=== PATIENT | female | born 1970 | race Caucasian/White ===

== ENCOUNTER 2020-03-17 10:26 | Outpatient (REF) | payer OTHER, SELFPAY ==
--- NOTE | 2020-03-17 15:00 | PFT_ITS ---
INDICATION: Shortness of breath. SPIROMETRY: The FEV1 to FVC 68% with an FEV1 of 2.02 L, which is 79% predicted and FVC of 2.97 L, which is 92% predicted. Post bronchodilator, the patient has significant response to both the FVC and the FEV1. The patient also has significant small airways disease. Maximum voluntary ventilation is 76% predicted. LUNG VOLUMES: Total lung capacity 104% predicted with a residual of 138% predicted. DIFFUSION CAPACITY: DLCO 90% predicted. COMPARISON: None. INTERPRETATION: There is an obstructive ventilatory defect consistent with mild to moderate COPD. The patient also had significant small airways disease and significant response to bronchodilators. This brings up the possibility of asthma, COPD overlap syndrome. The patient also has a mild to moderate decrease in maximum voluntary ventilation suggesting the possibility of deconditioning and also worsening dynamic inspiratory capacity. Lung volumes do demonstrate significant air trapping due to the COPD. In addition to that, the patient has a normal diffusing capacity. Clinical correlation warranted. MD JUAN Fischer/MODL / [id number]
== END 2020-03-17 10:27 | disposition home or self-care (01) ==
LOC: HO.RESP 10:26
PROVIDERS: PCP Internal Medicine; Visit Provider Internal Medicine
DX: R06.02 Shortness of breath (principal)
CPT/HCPCS: 94060; 94727; 94729

== ENCOUNTER → 2020-04-01 14:01 | Outpatient (BNVA) | payer OTHER, SELFPAY | PROVIDERS: PCP Internal Medicine; Visit Provider Internal Medicine Pulmonary Disease | DX: J45.909 Unspecified asthma, uncomplicated (principal) | CPT/HCPCS: 99202 ==

== ENCOUNTER 2020-04-19 04:10 | Emergency (ER) | payer OTHER, SELFPAY ==
[2020-04-19 04:43] VITALS: BP 151/81; PULSE 86; RESP 20; O2SAT 100; BMI 27.3
--- NOTE | 2020-04-19 04:53 | ED.NAVMDI ---
HPI - Nausea/Vomiting/Diarrhea General Chief complaint: Nausea/Vomiting/Diarrhea Stated complaint: DIARRHEA/VOMITING Time Seen by Provider: 04/19/20 04:34 Source: patient Mode of arrival: ambulatory History of Present Illness HPI Narrative: This is a 49-year-old female who presents with multiple episodes of nausea, nonbloody/nonbilious vomiting as well as multiple episodes watery diarrhea, nonbloody in nature, since eating at a food establishment earlier in the day. She states that she did not share the male with any friends or family and feels that this may be ?food poisoning?. She denies any recent fevers, chills, abdominal pain, but has a positive surgical history for to hernia repairs, and denies shortness of breath, chest pain, urinary pain/burning/frequency. Patient denies any recent antibiotic prescriptions. Related Data Home Medications Medication Instructions Recorded Confirmed gabapentin 600 mg tablet mg PO 11/26/19 03/31/20 levothyroxine 75 mcg tablet 75 mcg PO DAILY 11/26/19 03/31/20 loratadine 10 mg tablet 10 mg PO DAILY 11/26/19 03/31/20 Previous Rx's Medication Instructions Recorded albuterol sulfate 90 mcg/actuation 2 puff INHALATION Q6H PRN 30 Days 03/31/20 aerosol inhaler #8.5 g dextroamphetamine-amphetamine 10 10 mg PO BID 30 Days #60 tab 03/31/20 mg tablet tramadol 50 mg tablet 50 mg PO TID PRN 30 Days #90 tab 03/31/20 zolpidem 10 mg tablet 10 mg PO BEDTIME PRN 30 Days #30 03/31/20 tab fluticasone furoate 200 1 inh INHALATION DAILY 30 Days #1 04/01/20 mcg-vilanterol 25 mcg/dose ea inhalation powder Ventolin HFA 90 mcg/actuation 2 puff INHALATION Q4-6H PRN 30 04/02/20 aerosol inhaler Days #18 g NS dextroamphetamine-amphetamine 10 10 mg PO DAILY 30 Days #30 tab 04/03/20 mg tablet ondansetron HCl [Zofran] 4 mg PO Q6H PRN #7 tab 04/19/20 Allergies Allergy/AdvReac Type Severity Reaction Status Date / Time amitriptyline Allergy Mild face Verified 04/19/20 04:42 swelling aspirin [ASA] Allergy Unknown FACIAL Verified 04/19/20 04:42 SWELLING, swelling baclofen [BACLOFEN] Allergy Unknown UNKNOWN, Verified 04/19/20 04:42 vomiting Review of Systems Review of Systems: Pertinent positives and negatives as stated in HPI 10 point review of systems is otherwise negative. [facility] Past Medical History Source: nursing notes reviewed Medical History Leo-Danlos syndrome GERD (gastroesophageal reflux disease) Hypothyroidism Hypovitaminosis D Mild persistent asthma Shortness of breath Syncope and collapse Thyroid nodule Surgical History History of cystocele History of repair of rectocele History of umbilical hernia repair Family History Family History Father CVD (cardiovascular disease) Mother Hypertension Maternal Grandfather CVD (cardiovascular disease) Chronic mental illness Maternal Aunt Thyroid cancer Social History Social History Alcohol intake: never Smoking Status: Never smoker Advance Directives: No Advance Directives Information Provided: No Physical Exam Vital Signs: Vital Signs: Last Vital Signs Temp 98.3 F 04/19/20 06:53 Pulse 74 04/19/20 06:53 Resp 16 04/19/20 06:53 BP 144/76 H 04/19/20 06:53 Pulse Ox 100 04/19/20 06:53 Body Mass Index 27.3 VITAL SIGNS: Reviewed. GENERAL: Well developed, well nourished, in no acute distress. OROPHARYNX: no oral lesions noted, posterior pharynx clear NECK: Supple, no adenopathy LUNGS: Normal breath sounds. No adventitious sounds or accessory muscle use. SpO2<100> CARDIOVASCULAR: Regular rate and rhythm without noted murmurs ABDOMEN: Soft, non-tender, non-distended with bowel sounds. SKIN: Inspection of the skin reveals no rashes NEUROLOGIC: Alert and oriented x 4. Course Course Course Narrative: This is a 49-year-old female with history and clinical presentation suggestive of food poisoning but will rule out other infectious etiologies. Review of all investigations is negative for any acute findings and after receiving Zofran, Reglan, Benadryl patient's vomiting is now under control and she is feeling mildly better after receiving 1 L IV fluid resuscitation. MDM - Nausea/Vomiting/Diarrhea Lab Data Result diagrams: 04/19/20 05:05 04/19/20 06:04 Labs: Lab Results 04/19/20 04/19/20 04/19/20 Range/Units 05:05 05:05 06:04 WBC 7.6 (4.8-10.8) X10*3/uL RBC 4.41 (4.20-5.50) X10*6/uL Hgb 13.1 (12.0-16.0) g/dl Hct 39.7 (37-47) % MCV 90.0 (80-98) fL MCH 29.7 (27.0-33.0) pg MCHC 33.0 (31.0-35.0) g/dl RDW 12.2 (11.0-16.0) % Plt Count 266 (160-400) X10*3/uL MPV 10.3 (9.4-12.3) fL Immature Gran % (Auto) 0.3 (0.0-0.4) % Neut % (Auto) 70.2 (45-73) % Lymph % (Auto) 21.2 (20-40) % [place] % (Auto) 4.7 (2-11) % Eos % (Auto) 2.7 (0-4) % Baso % (Auto) 0.9 (0-2) % Lymph # (Auto) 1.6 (1.2-4.9) X10*3/uL [place] # (Auto) 0.4 (0.1-1.2) X10*3/uL Eos # (Auto) 0.2 (0.0-0.4) X10*3/uL Baso # (Auto) 0.1 (0.0-0.2) X10*3/uL Abs Immat Gran (auto) 0.02 (0.00-0.03) X10*3/uL Absolute Neuts (auto) 5.4 (2.0-8.3) X10*3/uL Absolute Nucleated RBC 0.000 (0.0-0.012) X10*3/uL Nucleated RBC % (auto) 0.0 (0.0-0.2) /100WBC Sodium 139 (135-145) mmol/L Potassium 4.0 (3.3-5.1) mmol/L Chloride 109 H (96-108) mmol/L Carbon Dioxide 18 L (22-29) mmol/L Anion Gap 16 (12-20) BUN 10 (9-16) mg/dL Creatinine 0.83 (0.5-1.4) mg/dL Estim Creat Clear Calc 72.4 Estimated GFR > 60 Random Glucose 98 (60-115) mg/dL Calcium 8.4 (8.4-10.2) mg/dL Total Bilirubin 0.7 (0.0-1.0) mg/dL AST 19 (5-31) U/L ALT 10 (0-31) U/L Alkaline Phosphatase 82 (39-117) U/L Total Protein 7.2 (6.5-8.0) g/dL Albumin 4.2 (3.5-5.0) g/dL Lipase Cancelled 12 TSH 4.09 H (0.32-4.0) uIU/mL Discharge Plan Discharge Clinical Impression: Gastroenteritis Patient Disposition: Home, Self-Care Instructions: Gastroenteritis (ED), Food Poisoning (ED) Additional Instructions: 1. Increase water intake. You have been provided with medication to control your nausea and you should use these opportunities to stay well hydrated. 2. Resume all home medications as prescribed. Do not hesitate to return to the emergency department she do experience any acute worsening or new symptoms. Prescriptions: New ondansetron HCl [Zofran] 4 mg tablet 4 mg PO Q6H PRN (Reason: nausea and vomiting) Qty: 7 RF: 0 No Action albuterol sulfate [Ventolin HFA] 90 mcg/actuation HFA aerosol inhaler 2 puff inhalation Q4-6H PRN (Reason: shortness of breath or wheezing) 30 Days Qty: 18 RF: 6 dextroamphetamine-amphetamine 10 mg tablet 10 mg PO DAILY 30 Days Qty: 30 RF: 0 gabapentin 600 mg tablet PO RF: 0 loratadine 10 mg tablet 10 mg PO DAILY RF: 0 levothyroxine 75 mcg tablet 75 mcg PO DAILY RF: 0 tramadol 50 mg tablet 50 mg PO TID PRN (Reason: pain) 30 Days Qty: 90 RF: 0 dextroamphetamine-amphetamine [Adderall] 10 mg tablet 10 mg PO BID 30 Days Qty: 60 RF: 0 zolpidem 10 mg tablet 10 mg PO BEDTIME PRN (Reason: insomnia) 30 Days Qty: 30 RF: 0 albuterol sulfate [ProAir HFA] 90 mcg/actuation HFA aerosol inhaler 2 puff inhalation Q6H PRN (Reason: shortness of breath or wheezing) 30 Days Qty: 8.5 RF: 6 Breo Ellipta 200-25 mcg/dose blister with device 1 inh inhalation DAILY 30 Days Qty: 1 RF: 6 Referrals: Abby Hancock MD [Primary Care Provider] - 2 days (Re-evaluation)
[2020-04-19] MEDS: ondansetron HCL 4 MG/2 ML VIAL IVPUSH (05:07)
[2020-04-19] MEDS: 0.9 % Sodium Chloride 1,000 ML 999 ML IV (05:07)
[2020-04-19 05:17] LABS: MANUAL DIFF FLAG NO
[2020-04-19 05:20] LABS: Basophils Absolute Auto 0.1 X10*3/uL (0.0-0.2); Basophils Percent Auto 0.9 % (0-2); Eosinophils Absolute Auto 0.2 X10*3/uL (0.0-0.4); Eosinophils Percent Auto 2.7 % (0-4); Hematocrit 39.7 % (37-47); Hemoglobin 13.1 g/dl (12.0-16.0); Imm Gran Abs Auto 0.02 X10*3/uL (0.00-0.03); Imm Gran Pct Auto 0.3 % (0.0-0.4); Lymphocytes Absolute Auto 1.6 X10*3/uL (1.2-4.9); Lymphocytes Percent Auto 21.2 % (20-40); Mean Corpuscular Hemoglobin 29.7 pg (27.0-33.0); Mean Platelet Volume 10.3 fL (9.4-12.3); Monocytes Absolute Auto 0.4 X10*3/uL (0.1-1.2); Monocytes Percent Auto 4.7 % (2-11); Neutrophils Absolute Auto 5.4 X10*3/uL (2.0-8.3); Neutrophils Percent Auto 70.2 % (45-73); Platelet Count 266 X10*3/uL (160-400); Red Blood Count 4.41 X10*6/uL (4.20-5.50); Red Cell Distribution Width 12.2 % (11.0-16.0); White Blood Count 7.6 X10*3/uL (4.8-10.8)
[2020-04-19] MEDS: diphenhydrAMINE HCL 50 MG/ML VIAL 25 MG IVPUSH (05:48)
[2020-04-19] MEDS: Metoclopramide HCl 10 MG/2 ML VIAL IVPUSH (05:49)
[2020-04-19 06:47] LABS: Alanine Aminotransferase 10 U/L (0-31); Albumin Level 4.2 g/dL (3.5-5.0); Alkaline Phosphatase 82 U/L (39-117); Anion Gap 16 (12-20); Aspartate Amino Transferase 19 U/L (5-31); Bilirubin Total 0.7 mg/dL (0.0-1.0); Blood Urea Nitrogen 10 mg/dL (9-16); Calcium 8.4 mg/dL (8.4-10.2); Carbon Dioxide 18 mmol/L (22-29); Chloride 109 mmol/L (96-108); Creatinine Clr Calc Pharmacy 72.4; Estimated Glomerular Filt Rate > 60; Glucose Random 98 mg/dL (60-115); Lipase 12 U/L (8-78); Sodium 139 mmol/L (135-145); Total Protein 7.2 g/dL (6.5-8.0)
[2020-04-19 06:53] VITALS: BP 144/76; PULSE 74; RESP 16; TEMP 36.8; O2SAT 100
--- NOTE | 2020-04-19 06:55 | PC.NURSE ---
Rn provided patient with gingerale and crackers per MD request for a PO challenge. Pt educated on the reason for PO challenge and RN set up cracker and ginerale on the stool next to the bed and encouraged the patient to try to eat/drink. Pt did not move from laying position. Report provided to jayme VALLE
--- NOTE | 2020-04-19 06:55 | PC.NURSE ---
report taken from Padma VALLE. patient resting on stretcher upon assessment. vitals updated. patient has gingerale and crackers for PO challenge. states she drank small amount of gingerale. no further vomiting per patient. waiting for re eval from MD>
[2020-04-19 07:03] LABS: Thyroid Stimulating Hormone 4.09 uIU/mL (0.32-4.0)
[2020-04-19] MEDS: Acetaminophen 325 MG TABLET 975 MG PO (07:29)
== END 2020-04-19 07:30 | disposition home or self-care (01) ==
PROVIDERS: Emergency Provider Student in an Organized Health Care Education/Training Program; PCP Internal Medicine
DX: K52.9 Noninfective gastroenteritis and colitis, unspecified (principal); R11.2 Nausea with vomiting, unspecified; Z79.899 Other long term (current) drug therapy
CPT/HCPCS: 36415; 80053; 83690; 84443; 85025; 96365; 96375; 99284; J1200; J2405; J2765

== ENCOUNTER 2020-05-02 11:22 | Outpatient (REF) | payer OTHER, SELFPAY ==
--- NOTE | ~2020-05-02 | XR_ITS ---
EXAMINATION: XR CHEST CLINICAL INFORMATION: Shortness of breath COMPARISON: Chest x-ray 08/21/2018. TECHNIQUE: 2 views of the chest were obtained. FINDINGS: No significant abnormality is noted involving the heart, lungs, mediastinum, bony thorax or soft tissues. XR/XR chest 2V IMPRESSION: Unremarkable chest examination
[2020-05-02 12:12] LABS: MANUAL DIFF FLAG NO
[2020-05-02 12:18] LABS: Basophils Absolute Auto 0.1 X10*3/uL (0.0-0.2); Basophils Percent Auto 1.1 % (0-2); Eosinophils Absolute Auto 0.4 X10*3/uL (0.0-0.4); Eosinophils Percent Auto 6.2 % (0-4); Hematocrit 39.6 % (37-47); Hemoglobin 12.9 g/dl (12.0-16.0); Imm Gran Abs Auto 0.02 X10*3/uL (0.00-0.03); Imm Gran Pct Auto 0.4 % (0.0-0.4); Lymphocytes Absolute Auto 2.2 X10*3/uL (1.2-4.9); Lymphocytes Percent Auto 38.6 % (20-40); Mean Corpuscular HGB Conc 32.6 g/dl (31.0-35.0); Mean Corpuscular Hemoglobin 30.3 pg (27.0-33.0); Mean Platelet Volume 10.4 fL (9.4-12.3); Monocytes Absolute Auto 0.4 X10*3/uL (0.1-1.2); Monocytes Percent Auto 6.5 % (2-11); Neutrophils Absolute Auto 2.7 X10*3/uL (2.0-8.3); Neutrophils Percent Auto 47.2 % (45-73); Platelet Count 231 X10*3/uL (160-400); Red Blood Count 4.26 X10*6/uL (4.20-5.50); Red Cell Distribution Width 12.6 % (11.0-16.0); White Blood Count 5.7 X10*3/uL (4.8-10.8)
[2020-05-02 12:41] LABS: Alanine Aminotransferase 11 U/L (0-31); Albumin Level 4.6 g/dL (3.5-5.0); Alkaline Phosphatase 88 U/L (39-117); Anion Gap 15 (12-20); Aspartate Amino Transferase 17 U/L (5-31); Bilirubin Total 0.2 mg/dL (0.0-1.0); Blood Urea Nitrogen 12 mg/dL (9-16); Calcium 9.5 mg/dL (8.4-10.2); Carbon Dioxide 24 mmol/L (22-29); Chloride 103 mmol/L (96-108); Estimated Glomerular Filt Rate > 60; Glucose Fasting 94 mg/dL (60-99); Potassium 4.4 mmol/L (3.3-5.1); Sodium 138 mmol/L (135-145); Total Protein 7.7 g/dL (6.5-8.0)
[2020-05-02 13:02] LABS: TSH reflex Free T4 4.76 uIU/mL (0.32-4.0)
[2020-05-02 14:06] LABS: Free T4 (Free Thyroxine) 0.81 ng/dL (0.71-1.85)
[2020-05-06 13:37] LABS: Vitamin D 25-OH, D2 8 ng/mL; Vitamin D 25-OH, D3 18 ng/mL; Vitamin D 25-OH, Total 26 ng/mL (30-100)
== END 2020-05-02 11:23 | disposition home or self-care (01) ==
LOC: HO.LAB 11:22
PROVIDERS: Absent Provider Internal Medicine; PCP Internal Medicine; Visit Provider Internal Medicine Pulmonary Disease
DX: J45.909 Unspecified asthma, uncomplicated (principal); E03.8 Other specified hypothyroidism; E06.3 Autoimmune thyroiditis; E55.9 Vitamin D deficiency, unspecified; R55 Syncope and collapse; R06.02 Shortness of breath; Z91.09 Other allergy status, other than to drugs and biological substances
CPT/HCPCS: 36415; 71046; 80053; 82306; 82785; 84439; 84443; 85025; 86003; 99212

== ENCOUNTER 2020-05-30 13:53 | Emergency (ER) | payer OTHER, SELFPAY ==
--- NOTE | ~2020-05-30 | XR_ITS ---
EXAMINATION: XR ANKLE, RIGHT XR FOOT, RIGHT CLINICAL INFORMATION: Injury and pain. COMPARISON: There are no prior studies available for comparison. TECHNIQUE: AP and oblique views of the right ankle were obtained. AP, lateral, and oblique views of the right foot was obtained. FINDINGS: Right ankle: There is an oblique spiral, minimally displaced fracture of the distal shaft of the right fibula. There is moderate associated overlying soft tissue swelling. There is equivocal mild widening of the medial compartment of the mortise of the ankle joint. Mild soft tissue swelling is also noted around the medial ankle joint. There are no radiodense foreign bodies. Right foot: The study partially redemonstrates the oblique fracture of the distal fibular shaft seen on the x-ray of the ankle. No other fractures are demonstrated. The joint spaces are maintained. There is a small spur off the medial aspect of the distal phalanx of the great toe. There is a small anterior joint effusion. There are no radiodense foreign bodies. XR/XR foot RT 2V IMPRESSION: 1. There is an oblique spiral minimally displaced fracture of the distal shaft of the right fibula. There is mild widening of the medial compartment of the mortise of the ankle joint. 2. There is an anterior joint effusion. There are no radiodense foreign bodies.
--- NOTE | ~2020-05-30 | XR_ITS ---
EXAMINATION: XR ANKLE, RIGHT XR FOOT, RIGHT CLINICAL INFORMATION: Injury and pain. COMPARISON: There are no prior studies available for comparison. TECHNIQUE: AP and oblique views of the right ankle were obtained. AP, lateral, and oblique views of the right foot was obtained. FINDINGS: Right ankle: There is an oblique spiral, minimally displaced fracture of the distal shaft of the right fibula. There is moderate associated overlying soft tissue swelling. There is equivocal mild widening of the medial compartment of the mortise of the ankle joint. Mild soft tissue swelling is also noted around the medial ankle joint. There are no radiodense foreign bodies. Right foot: The study partially redemonstrates the oblique fracture of the distal fibular shaft seen on the x-ray of the ankle. No other fractures are demonstrated. The joint spaces are maintained. There is a small spur off the medial aspect of the distal phalanx of the great toe. There is a small anterior joint effusion. There are no radiodense foreign bodies. XR/XR ankle RT 2V IMPRESSION: 1. There is an oblique spiral minimally displaced fracture of the distal shaft of the right fibula. There is mild widening of the medial compartment of the mortise of the ankle joint. 2. There is an anterior joint effusion. There are no radiodense foreign bodies.
[2020-05-30 14:51] VITALS: BP 149/94; PULSE 89; RESP 18; TEMP 36.6; O2SAT 98; BMI 31.1
--- NOTE | 2020-05-30 15:22 | ED.FALL ---
HPI - Fall General Chief Complaint: Fall Stated Complaint: fall - rt ft injury Time Seen by Provider: 05/30/20 15:10 Source: patient Mode of arrival: ambulatory Limitations: no limitations History of Present Illness HPI Narrative: 49-year-old female here with right ankle and foot pain status post fall. The patient tells me that she fell down several steps causing a twisting injury to her ankle. Unclear in inversion or eversion injury. She now has pain over the posterior ankle and over the heel. No head injury or loss of consciousness. MD complaint: fall Related Data Home Medications Medication Instructions Recorded Confirmed loratadine 10 mg tablet 10 mg PO DAILY 11/26/19 03/31/20 Previous Rx's Medication Instructions Recorded albuterol sulfate 90 mcg/actuation 2 puff INHALATION Q6H PRN 30 Days 03/31/20 aerosol inhaler #8.5 g tramadol 50 mg tablet 50 mg PO TID PRN 30 Days #90 tab 03/31/20 fluticasone furoate 200 1 inh INHALATION DAILY 30 Days #1 04/01/20 mcg-vilanterol 25 mcg/dose ea inhalation powder Ventolin HFA 90 mcg/actuation 2 puff INHALATION Q4-6H PRN 30 04/02/20 aerosol inhaler Days #18 g NS ondansetron HCl [Zofran] 4 mg PO Q6H PRN #7 tab 04/19/20 dextroamphetamine-amphetamine 10 10 mg PO BID 30 Days #60 tab 05/05/20 mg tablet levothyroxine 88 mcg tablet 88 mcg PO DAILY 90 Days #90 tab 05/05/20 zolpidem 10 mg tablet 10 mg PO BEDTIME PRN 30 Days #30 05/05/20 tab dextroamphetamine-amphetamine 10 10 mg PO DAILY 30 Days #30 tab 05/06/20 mg tablet gabapentin 600 mg tablet 600 mg PO .four times a day 30 05/06/20 Days #120 tab omalizumab 150 mg/mL subcutaneous 150 mg SUBCUT Q4W 28 Days #1 ml 05/14/20 syringe oxycodone 5 mg PO Q6H PRN #10 tab 05/30/20 Allergies Allergy/AdvReac Type Severity Reaction Status Date / Time amitriptyline Allergy Mild face Verified 05/02/20 11:23 swelling aspirin [ASA] Allergy Unknown FACIAL Verified 05/02/20 11:23 SWELLING, swelling baclofen [BACLOFEN] Allergy Unknown UNKNOWN, Verified 05/02/20 11:23 vomiting Review of Systems Review of Systems: Yes all other systems are reviewed and are negative Constitutional: Constitutional: Reports no additional constitutional complaints, Denies body ache(s), Denies chills, Denies fever(s), Denies headache(s) and Denies weakness Eyes: Eyes: Reports no additional eye complaints and Denies change in vision ENT: Reports system reviewed and no additional complaints, except as documented, Denies dizziness, Denies headache(s), Denies nasal congestion, Denies nasal discharge and Denies neck pain Cardiovascular: Cardiovascular: Reports no additional cardiovascular complaints, Denies chest pain, Denies leg edema and Denies dyspnea Respiratory: Respiratory: Reports no additional respiratory complaints, Denies cough and Denies dyspnea Gastrointestinal: Gastrointestinal: Reports no additional gastrointestinal complaints, Denies abdominal pain, Denies diarrhea, Denies nausea and Denies vomiting Genitourinary: Genitourinary: Reports no additional female genitourinary complaints and Denies urinary incontinence Musculoskeletal: Musculoskeletal: Reports no additional musculoskeletal complaints, Denies back pain, Reports arthralgias, Reports joint swelling, Denies neck pain, Denies numbness and Denies tingling Integumentary/Breasts: Skin/Breast: Reports system reviewed and no additional complaints, except as docu and Denies rash Neurologic: Reports system reviewed and no additional complaints, except as documented, Denies Abnormal speech present, Denies dizziness, Denies headache(s), Denies numbness, Denies tingling and Denies weakness [facility] Past Medical History Attestation statement: The following information was validated with the patient. Source: old records reviewed and nursing notes reviewed Medical History ADD (attention deficit disorder) Leo-Danlos syndrome GERD (gastroesophageal reflux disease) Hypothyroidism Hypovitaminosis D Mild persistent asthma Polyarthralgia Shortness of breath Syncope and collapse Thyroid nodule Surgical History History of cystocele History of repair of rectocele History of umbilical hernia repair Family History Family History Father CVD (cardiovascular disease) Mother Hypertension Maternal Grandfather CVD (cardiovascular disease) Chronic mental illness Maternal Aunt Thyroid cancer Social History Social History Alcohol intake: never Smoking Status: Never smoker Advance Directives: No Advance Directives Information Provided: No Physical Exam Vital Signs: Vital Signs: Last Vital Signs Temp 98 F 05/30/20 14:51 Pulse 89 05/30/20 14:51 Resp 18 05/30/20 14:51 BP 149/94 H 05/30/20 14:51 Pulse Ox 98 05/30/20 14:51 Body Mass Index 31.1 Const: General: cooperative, healthy appearing, comfortable and no acute distress Orientation/consciousness: patient oriented x3 Limitations: no limitations HENMT: Head: Yes normal to inspection Ears: hearing grossly normal bilaterally General nose exam: Normal external nose present Face and sinus: Yes normal facial exam Mouth: Normal oral and palatal mucosa present Throat: Yes posterior oropharynx normal Eyes: General: appearance normal, both eyes and all related structures Pupils: Equal, round and reactive pupils present Neck: Neck: Yes normal visual inspection Chest: Chest palpation & inspection: normal inspection of the chest Resp: Effort & Inspection: normal respiratory effort Auscultation: clear to auscultation bilaterally Cardio: Rate: regular rate Rhythm: regular rhythm Peripheral pulses: Peripheral pulses 2+ throughout GI: Inspection: Yes normal to inspection Palpation (GI): Soft to palpation and nontender Auscultation: normal bowel sounds Back/Spine/Pelvis: Thoracic/Lumbar Spine: thoracic and lumbar spine normal to inspection Skin: General skin exam: no rashes or lesions noted Neuro: General: patient oriented x3, no focal motor deficits and normal sensation to monofilament Cranial nerves: Yes Equal, round and reactive pupils present Cognition (Neuro): normal cognition Speech: No Abnormal speech present Gait exam (Neuro): Normal gait present Motor exam (neuro): 5/5 motor strength present throughout Extrem: Other: Tenderness over the posterior right ankle. Negative Thorpe's test. No calf pain or swelling. Tenderness over the heel and over the base of the 5th meta tarsal. No obvious swelling, ecchymosis or deformity General: Yes normal to inspection Course Course Course Narrative: Right ankle and foot pain status post injury today. Will need x-rays 1700-X-ray shows 1. There is an oblique spiral minimally displaced fracture of the distal shaft of the right fibula. There is mild widening of the medial compartment of the mortise of the ankle joint. 2. There is an anterior joint effusion. There are no radiodense foreign bodies. Patient placed in a posterior and stirrup splint. She has crutches from home. Recommended follow-up with Orthopedics. Reviewed worrisome signs and symptoms and when to return to the emergency department. Comfortable discharge home. Procedures Orthopedic Splinting/Casting Injury #1: Side: right Lower Extremity Injury Location: lower leg Lower Extremity Immobilizer: posterior splint and stirrup splint Other Orthopedic Equipment: crutches MDM - Fall Differential Diagnosis Differential diagnosis: Likely dislocation and fracture Medical Records Attestation: I reviewed the patient's medical records. Lab Data Attestation: I reviewed the patient's lab results. Imaging Data ankle/foot right x-ray: Attestation: I personally reviewed and interpreted this imaging study as follows: Radiologist's impression: 1. There is an oblique spiral minimally displaced fracture of the distal shaft of the right fibula. There is mild widening of the medial compartment of the mortise of the ankle joint. 2. There is an anterior joint effusion. There are no radiodense foreign bodies. Discharge Plan Discharge Clinical Impression: Closed fibular fracture Qualifiers: Encounter type: initial encounter Fibula location: distal Fracture morphology: other fracture Laterality: right Qualified Code(s): S82.831A - Other fracture of upper and lower end of right fibula, initial encounter for closed fracture Patient Disposition: Home, Self-Care Instructions: Leg Fracture (ED) Additional Instructions: Ice, elevation, no weight-bearing Follow-up with orthopedics Splint stays on at all times. Do not get it wet Prescriptions: New oxycodone 5 mg tablet 5 mg PO Q6H PRN (Reason: pain) Qty: 10 RF: 0 No Action albuterol sulfate [Ventolin HFA] 90 mcg/actuation HFA aerosol inhaler 2 puff inhalation Q4-6H PRN (Reason: shortness of breath or wheezing) 30 Days Qty: 18 RF: 6 levothyroxine [Levoxyl] 88 mcg tablet 88 mcg PO DAILY 90 Days Qty: 90 RF: 1 zolpidem 10 mg tablet 10 mg PO BEDTIME PRN (Reason: insomnia) 30 Days Qty: 30 RF: 0 dextroamphetamine-amphetamine [Adderall] 10 mg tablet 10 mg PO BID 30 Days Qty: 60 RF: 0 gabapentin 600 mg tablet 600 mg PO .four times a day 30 Days Qty: 120 RF: 6 dextroamphetamine-amphetamine 10 mg tablet 10 mg PO DAILY 30 Days Qty: 30 RF: 0 Xolair 150 mg/mL syringe 150 mg subcut Q4W 28 Days Qty: 1 RF: 12 ondansetron HCl [Zofran] 4 mg tablet 4 mg PO Q6H PRN (Reason: nausea and vomiting) Qty: 7 RF: 0 loratadine 10 mg tablet 10 mg PO DAILY RF: 0 tramadol 50 mg tablet 50 mg PO TID PRN (Reason: pain) 30 Days Qty: 90 RF: 0 albuterol sulfate [ProAir HFA] 90 mcg/actuation HFA aerosol inhaler 2 puff inhalation Q6H PRN (Reason: shortness of breath or wheezing) 30 Days Qty: 8.5 RF: 6 Breo Ellipta 200-25 mcg/dose blister with device 1 inh inhalation DAILY 30 Days Qty: 1 RF: 6 Referrals: Memo Cat MD [Physician] - 2 days Interventions: ED Discharge Assessment Last Done: 05/30/20 16:58 Discharge Date/Time: 05/30/20 16:59
[2020-05-30] MEDS: Acetaminophen 325 MG TABLET 650 MG PO (16:45)
== END 2020-05-30 16:59 | disposition home or self-care (01) ==
PROVIDERS: Emergency Provider Emergency Medicine; PCP Internal Medicine
DX: S82.831A Other fracture of upper and lower end of right fibula, initial encounter for closed fracture (principal); W10.8XXA Fall (on) (from) other stairs and steps, initial encounter; Y93.89 Activity, other specified; Y92.038 Other place in apartment as the place of occurrence of the external cause; Y99.9 Unspecified external cause status
CPT/HCPCS: 29515; 73600; 73620; 99283; 99284

== ENCOUNTER → 2020-06-04 10:17 | Outpatient (BNVA) | payer OTHER, SELFPAY | PROVIDERS: Visit Provider Physician Assistant | DX: S82.839A Other fracture of upper and lower end of unspecified fibula, initial encounter for closed fracture (principal) | CPT/HCPCS: 99212 ==

== ENCOUNTER 2020-06-12 06:01 | Day surgery (SDC) | payer OTHER, SELFPAY ==
--- NOTE | 2020-06-11 08:44 | HO.ANESPROP2 ---
Documented by User: Bettie Youngblood 06/11/20 08:47 HPI - Anesthesia Eval Consult details Narrative: 49yo F for Right Ankle Fracture ORIF PMFSH Active Problems Active Problems: All Active Problems (Updated 05/31/20 @ 00:01 by Manisha Sultana) Polyarthralgia (Acute) ADD (attention deficit disorder) (Acute) MINO (obstructive sleep apnea) (Acute) Environmental allergies (Acute) Asthma (Acute) Mild persistent asthma (Acute) Syncope and collapse (Acute) Shortness of breath (Acute) Thyroid nodule (Acute) Hypovitaminosis D (Acute) GERD (gastroesophageal reflux disease) (Acute) Leo-Danlos syndrome (Acute) Hypothyroidism (Acute) Past Medical History Medical History (Updated 06/12/20 @ 08:34 by Keyana Henriquez) ADD (attention deficit disorder) Asthma Leo-Danlos syndrome GERD (gastroesophageal reflux disease) Hypothyroidism Hypovitaminosis D Mild persistent asthma MINO (obstructive sleep apnea) Polyarthralgia Shortness of breath Syncope and collapse Thyroid nodule Family History Family History Father CVD (cardiovascular disease) Mother Hypertension Maternal Grandfather CVD (cardiovascular disease) Chronic mental illness Maternal Aunt Thyroid cancer Surgical History Surgical History History of cystocele History of repair of rectocele History of umbilical hernia repair Social History Social History Alcohol intake: never Smoking Status: Never smoker Second Hand Smoke Exposure: No Use of substances other than those prescribed or required for medical reasons: No Are you DNR?: No Advance Directives: No Advance Directives Information Provided: Yes Current occupational status: employed 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 Meds Allergies Allergy/AdvReac Type Severity Reaction Status Date / Time aspirin [ASA] Allergy Intermediate FACIAL Verified 06/10/20 14:58 SWELLING, swelling baclofen [BACLOFEN] Allergy Intermediate UNKNOWN, Verified 06/10/20 14:58 vomiting amitriptyline Allergy Mild face Verified 06/10/20 14:58 swelling Home Medications Medication Instructions Recorded Confirmed Last Taken Type loratadine 10 mg tablet 10 mg PO DAILY 11/26/19 06/10/20 Unknown History Exam Exam Date and Time: June 11, 2020 0844 Pertinent Lab Results Pertinent Lab Results: Laboratory Tests 05/02/20 05/02/20 11:55 11:55 WBC 5.7 Hgb 12.9 Hct 39.6 Plt Count 231 Sodium 138 Potassium 4.4 Chloride 103 Carbon Dioxide 24 BUN 12 Creatinine 0.93 Narrative Narrative: PFT 03/2020 INTERPRETATION: There is an obstructive ventilatory defect consistent with mild to moderate COPD. The patient also had significant small airways disease and significant response to bronchodilators. This brings up the possibility of asthma, COPD overlap syndrome. The patient also has a mild to moderate decrease in maximum voluntary ventilation suggesting the possibility of deconditioning and also worsening dynamic inspiratory capacity. Lung volumes do demonstrate significant air trapping due to the COPD. In addition to that, the patient has a normal diffusing capacity. Clinical correlation warranted. Assessment and Plan Assessment Anesthesia Assessment: Chart Reviewed Documented by User: Keyana Henriquez 06/12/20 08:39 [facility] Past Medical History Medical History (Updated 06/12/20 @ 08:34 by Keyana Henriquez) ADD (attention deficit disorder) Asthma Leo-Danlos syndrome GERD (gastroesophageal reflux disease) Hypothyroidism Hypovitaminosis D Mild persistent asthma MINO (obstructive sleep apnea) Polyarthralgia Shortness of breath Syncope and collapse Thyroid nodule Family History Family History Father CVD (cardiovascular disease) Mother Hypertension Maternal Grandfather CVD (cardiovascular disease) Chronic mental illness Maternal Aunt Thyroid cancer Family history of problems with anesthesia: No Surgical History Surgical History History of cystocele History of repair of rectocele History of umbilical hernia repair History of Problems with Anesthesia: Yes (Slow to wake up with 1 surgery but has had 2 operations after with no issues) Social History Social History Alcohol intake: never Smoking Status: Never smoker Second Hand Smoke Exposure: No Use of substances other than those prescribed or required for medical reasons: No Are you DNR?: No Advance Directives: No Advance Directives Information Provided: Yes Current occupational status: employed 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 Meds Allergies Allergy/AdvReac Type Severity Reaction Status Date / Time aspirin [ASA] Allergy Intermediate FACIAL Verified 06/10/20 14:58 SWELLING, swelling baclofen [BACLOFEN] Allergy Intermediate UNKNOWN, Verified 06/10/20 14:58 vomiting amitriptyline Allergy Mild face Verified 06/10/20 14:58 swelling Home Medications Medication Instructions Recorded Confirmed Last Taken Type loratadine 10 mg tablet 10 mg PO DAILY 11/26/19 06/10/20 Unknown History Exam Height,Weight and Vital Signs: Vital Signs Temp Pulse Resp BP Pulse Ox 06/12/20 06:16 96.9 F 70 16 152/86 H 99 Airway Mallampati Class: II TM Dist: >3cm Neck ROM: Full Heart: RRR Lungs: CTAB Assessment and Plan Assessment Anesthesia Assessment: Anesthesia Plan Discussed and Chart Reviewed Final Anesthetic Review NPO: Yes ASA Class: III Final Preanesthetic Review: No Changes in Pt Med Stat, Meds/Allgs Chart Reviewed, Consent Obtained/Reviewed and Anes Risks/Benef Reviewed Patient Risk: Intermediate Procedure Risk: Low Assessment/Block/Sedation in SS: Assess/Block/Sedation-SS Anesthetic Plan Anesthetic Plan: GA, Regional Block (Popliteal nerve block) and Other (Attention to positioning) Disposition: Standard PACU
[2020-06-12] VITALS (7 sets, daily range): BP systolic 133–152; BP diastolic 75–86; PULSE 70–90; RESP 14–18; TEMP 36.1–36.3; O2SAT 97–99; BMI 25.6
--- NOTE | ~2020-06-12 | FL_ITS ---
EXAMINATION: XR FLUOROSCOPY WITH IMAGES CLINICAL INFORMATION: Right ankle ORIF COMPARISON: None. TECHNIQUE: Fluoroscopy performed by Is trabeculated. Fluoroscopy time: 0 minutes DAP: [id number] [id number] Images: 2 FINDINGS: Oblique distal fibular fracture has been stabilized with a lateral metallic plate and screws. There is a single anterior screw seen as well. The ankle mortise and subtalar joints are maintained normal. The lateral malleolar soft tissue swelling seen. FL/FL guidance in OR IMPRESSION: Stabilized oblique distal fracture with hardware as described above. The fracture fragments is in alignment. There is minimal lateral malleolar soft tissue swelling.
[2020-06-12] MEDS: Lactated Ringers 1,000 ML 100 ML IVCONT (06:30)
--- NOTE | 2020-06-12 07:22 | MHC.SHP ---
Pre-Procedural Eval Section A The patient is an INPATIENT: No Changes since office visit: No Cold of Flu in the past 2 weeks, No New Medical Problems, No Changes in Medication and No Patient answered all questions The History & Physical has been completed within 30 days and I have reviewed it.: Yes Section B Chief Complaint: Right Distal Radius Fx Allergies: Allergies Allergy/AdvReac Type Severity Reaction Status Date / Time aspirin [ASA] Allergy Intermediate FACIAL Verified 06/10/20 14:58 SWELLING, swelling baclofen [BACLOFEN] Allergy Intermediate UNKNOWN, Verified 06/10/20 14:58 vomiting amitriptyline Allergy Mild face Verified 06/10/20 14:58 swelling Plan I have reviewed the history and physical and performed a pertinent physical examination on my patient. No changes have occurred unless specified.
--- NOTE | 2020-06-12 08:55 | W.PM.OPN ---
Operative Note Operative Note Date of Service: 06/12/20 Narrative: OPERATIVE FIXATION ANKLE SURGEON: Memo Cat MD (Kelly) Senior Energy Market Coordinator: Vane Simms MD PREOP DIAGNOSIS: Bimalleolar fracture equivalent right ankle POSTOP DIAGNOSIS: Same OPERATIVE PROCEDURE: ORIF [right] Ankle CLINICAL NOTE: This lady fell and injured her ankle as noted above. Because of this after explaining the risks benefits and alternatives and answering all of the questions it was mutually agreed upon to carry the following procedure. OPERATIVE DETAILS Under a regional and general anesthetic the patient was placed supine on the operating table. Pneumatic tourniquet cuff was placed on the upper the right thigh. He was inflated to 300 mm of mercury at the beginning of the case. The right foot and ankle were then prepped draped in standard fashion Surgical time-out was then performed. The patient is identified. Procedure confirmed. Site confirmed. Medical and allergy history was reviewed. Preoperative antibiotics were given. Standard DVT prophylaxis in place. All other items discussed and agreed upon. Standard approach to the lateral malleolus was carried out. This was taken down through subcutaneous tissues with hemostasis achieved along the way electrocautery. Subperiosteal elevation was performed anteriorly and posteriorly. The fracture was identified. It was opened. It was irrigated curetted clear of clot and soft tissue. An anatomical reduction was then performed. An interfragmentary screw was then inserted under standard technique. This brought fracture together nicely.. After this a 6 hole anatomical plate was selected and brought up to the table. He was placed along the lateral malleolus. Distally single screw was drilled measured and the appropriate length locking screw inserted. Just proximal to the fracture of the holes drilled measured and a non locking screw was inserted bringing the plate nicely to the side. Following this most distal screws were drilled measured and locking screw was inserted. Screw holes near the fracture site were not used. Proximally the holes that remained were drilled measured nonlocking screws inserted. Fluoroscopy was in used. The hardware was in position. This screw lengths appropriate. Mortise was intact. Therefore we proceeded to closure. The wounds were irrigated. Deep subcutaneous tissue and superficial tissue were approximated interrupted 2-0 poly absorb. [place] were then used to close the. Sterile dressings were then applied. Tourniquet was let down total tourniquet time of 30 minutes. The foot was placed in a posterior splint. The patient's anesthesia was then reversed. They were transferred supine to the room bed then taken recovery condition. Intraoperatively there was approximately 10 cc of blood loss. No intraop transfusions or complications.
[2020-06-12] MEDS: oxyCODONE HCl Immed Release 5 MG TABLET PO (09:30)
[2020-06-12] MEDS: Acetaminophen 325 MG TABLET 650 MG PO (09:30)
== END 2020-06-12 10:31 | disposition home or self-care (01) ==
PROVIDERS: PCP Internal Medicine; Visit Provider Orthopaedic Surgery
PROC: (CPT 27792; principal; 2020-06-12 07:30)
DX: S82.61XA Displaced fracture of lateral malleolus of right fibula, initial encounter for closed fracture (principal); W10.9XXA Fall (on) (from) unspecified stairs and steps, initial encounter; Y93.9 Activity, unspecified; Y92.9 Unspecified place or not applicable; Y99.8 Other external cause status; J45.909 Unspecified asthma, uncomplicated; F98.8 Other specified behavioral and emotional disorders with onset usually occurring in childhood and adolescence; Q79.60 Ehlers-Danlos syndrome, unspecified; Z79.899 Other long term (current) drug therapy; Z88.8 Allergy status to other drugs, medicaments and biological substances
CPT/HCPCS: 27792; C1713; J0690; J1100; J2250; J2405; J3010

== ENCOUNTER 2020-06-24 08:10 | Outpatient (REF) | payer OTHER, SELFPAY ==
--- NOTE | ~2020-06-24 | XR_ITS ---
EXAMINATION: XR ANKLE, RIGHT CLINICAL INFORMATION: Follow-up fracture. COMPARISON: Right ankle under fluoroscopy 06/12/2020 TECHNIQUE: AP, lateral, and mortise views of the right ankle. FINDINGS: The right lateral malleolar oblique fracture has been stabilized with lateral plate and screws is a fracture fragment in satisfactory alignment. The ankle mortise and subtalar joints are normal. There are surgical kassandra along the lateral ankle. XR/XR ankle RT min 3V IMPRESSION: Stabilized oblique fibular fracture with lateral plate and screws. The fracture fragments are in alignment.
== END 2020-06-24 08:11 | disposition home or self-care (01) ==
LOC: HO.HOSX 08:10
PROVIDERS: Visit Provider Physician Assistant
DX: S82.831D Other fracture of upper and lower end of right fibula, subsequent encounter for closed fracture with routine healing (principal); S82.832D Other fracture of upper and lower end of left fibula, subsequent encounter for closed fracture with routine healing; Q79.60 Ehlers-Danlos syndrome, unspecified; K21.9 Gastro-esophageal reflux disease without esophagitis; E03.9 Hypothyroidism, unspecified; E55.9 Vitamin D deficiency, unspecified; J45.30 Mild persistent asthma, uncomplicated; Z98.890 Other specified postprocedural states
CPT/HCPCS: 73610; 99202; 99212

== ENCOUNTER 2020-07-19 07:54 | Emergency (ER) | payer OTHER, SELFPAY ==
--- NOTE | ~2020-07-19 | CT_ITS ---
EXAMINATION: CT ABDOMEN AND PELVIS WITHOUT CONTRAST CLINICAL INFORMATION: Epigastric pain. Nausea, and vomiting. COMPARISON: None TECHNIQUE: Multidetector volumetric imaging was performed from the superior aspect of the liver through the pubic symphysis. Sagittal and coronal reformatted images were obtained on the technologist's workstation. This CT examination was performed using dose optimization techniques as appropriate, variously including the following: *Automated exposure control *Adjustment of mA and/or kV according to patient size (this includes techniques or standardized protocols for targeted exams where dose is matched to indication/reason for exam; i.e. extremities or head) *Use of iterative reconstruction technique DLP: 563.0 mGy-cm FINDINGS: LUNG BASES: The visualized lung bases are unremarkable. LIVER, GALLBLADDER, AND BILIARY TREE: The liver is normal in size, shape, and attenuation. No focal hepatic lesion or biliary ductal dilatation is present. The gallbladder is unremarkable with no evidence of radiopaque gallstones, gallbladder wall thickening, or obvious pericholecystic inflammatory changes. PANCREAS: Unremarkable. SPLEEN: Unremarkable. ADRENAL GLANDS: Unremarkable. KIDNEYS AND URETERS: The kidneys are normal in size, shape, and attenuation. No hydronephrosis, hydroureter, or calculi seen. No perinephric stranding. BLADDER: Suboptimally distended, grossly appears unremarkable. GASTROINTESTINAL TRACT: The small and large bowel are unremarkable. The appendix is nonvisualized without any inflammatory changes around the cecum. Specific note is made of presence of intraluminal contrast within the large bowel likely from prior ingestion of oral contrast. Please correlate clinically. ABDOMINAL WALL: No significant hernia is appreciated. LYMPH NODES: Normal. VASCULAR: Unremarkable. PELVIC VISCERA: There is no pelvic mass present. There is no free fluid and/or free air present. OSSEOUS STRUCTURES: Mild diffuse osteopenia. Nonspecific asymmetric sclerosis is present involving the right iliac bone at the level of the SI joint, of indeterminate etiology. CT/CT abdomen pelvis wo con IMPRESSION: 1. No CT evidence of any acute intra-abdominal and/or intrapelvic pathology is present. 2. Mild diffuse osteopenia. 3. Asymmetric sclerosis involving the right iliac bone, of indeterminate etiology.
[2020-07-19 07:58] VITALS: BP 154/92; BP 155/93; PULSE 76; PULSE 84; RESP 18; TEMP 36.7; O2SAT 96; O2SAT 97; BMI 29.1
[2020-07-19] MEDS: ondansetron HCL 4 MG/2 ML VIAL IVPUSH (08:25)
--- NOTE | 2020-07-19 09:09 | ECG_ITS ---
Test Reason : ABDOMINAL PAIN Blood Pressure : / mmHG Vent. Rate : 064 BPM Atrial Rate : 064 BPM P-R Int : 130 ms QRS Dur : 084 ms QT Int : 426 ms P-R-T Axes : 058 048 047 degrees QTc Int : 439 ms Normal sinus rhythm Normal ECG When compared to the previous EKG of No significant changes seen Referred By: Florencia Negrete Electronically Signed By:CHERI HOLLIDAY MD
--- NOTE | 2020-07-19 09:12 | ED.ABDPAIN ---
HPI - Abdominal Pain General Chief Complaint: Abdominal Pain Stated Complaint: n/v/d Time Seen by Provider: 07/19/20 09:04 Source: patient and family (daughter) Mode of arrival: ambulatory Limitations: no limitations History of Present Illness HPI narrative: Patient is a 50-year-old female with a past medical history of Leo Danlos, , GERD, MINO, asthma, hypothyroidism, ADD, shortness of breath who presents with 10 hours of nausea vomiting diarrhea and chills. She states she has had more than 10 episodes of vomiting, she denies blood or coffee ground type vomitus. She states she has had at least 6 episodes of watery diarrhea, denies blood or black in her diarrhea. She denies eating anything that might have caused food poisoning, she states her last meal was pizza and everyone else in her household ate it with no issues. She denies fevers. She states she has been taking oxycodone randomly for her pain secondary to a foot surgery she had 4 weeks ago but has been taking it on and off and her last dose was 2 days ago. She denies any alcohol or drug use or being in withdrawal. She denies taking any recent antibiotics or travel. Related Data Home Medications Medication Instructions Recorded Confirmed loratadine 10 mg tablet 10 mg PO DAILY 11/26/19 06/10/20 Previous Rx's Medication Instructions Recorded albuterol sulfate 90 mcg/actuation 2 puff INHALATION Q6H PRN 30 Days 03/31/20 aerosol inhaler #8.5 g tramadol 50 mg tablet 50 mg PO TID PRN 30 Days #90 tab 03/31/20 fluticasone furoate 200 1 inh INHALATION DAILY 30 Days #1 04/01/20 mcg-vilanterol 25 mcg/dose ea inhalation powder Ventolin HFA 90 mcg/actuation 2 puff INHALATION Q4-6H PRN 30 04/02/20 aerosol inhaler Days #18 g NS ondansetron HCl [Zofran] 4 mg PO Q6H PRN #7 tab 04/19/20 dextroamphetamine-amphetamine 10 10 mg PO DAILY 30 Days #30 tab 05/06/20 mg tablet omalizumab 150 mg/mL subcutaneous 150 mg SUBCUT Q4W 28 Days #1 ml 05/14/20 syringe gabapentin 600 mg tablet 600 mg PO .four times a day 30 06/10/20 Days #120 tab levothyroxine 100 mcg tablet 100 mcg PO DAILY 90 Days #90 tab 06/10/20 omeprazole 20 mg capsule,delayed 20 mg PO DAILY 90 Days #90 cap 06/10/20 release oxycodone 5 mg tablet 5 mg PO Q6H PRN 28 Days #100 tab 06/10/20 oxycodone 10 mg PO Q4-6H PRN #40 tab 06/12/20 zolpidem 10 mg tablet 10 mg PO BEDTIME PRN 30 Days #30 07/14/20 tab ondansetron HCl [Zofran] 4 mg PO Q8H PRN #7 tab 07/19/20 Allergies Allergy/AdvReac Type Severity Reaction Status Date / Time aspirin [ASA] Allergy Intermediate FACIAL Verified 06/24/20 11:06 SWELLING, swelling baclofen [BACLOFEN] Allergy Intermediate UNKNOWN, Verified 06/24/20 11:06 vomiting amitriptyline Allergy Mild face Verified 06/24/20 11:06 swelling Review of Systems Review of Systems Yes all other systems are reviewed and are negative Physical Exam Vital Signs: Vital Signs: Last Vital Signs Temp 97.8 F 07/19/20 10:10 Pulse 80 07/19/20 10:10 Resp 16 07/19/20 10:10 BP 150/80 H 07/19/20 10:10 Pulse Ox 100 07/19/20 10:10 Body Mass Index 29.1 Const: General: cooperative, healthy appearing, comfortable, well developed and ill appearing (pt writhing in bed, holding vomit bag) Nutritional Appearance: average body habitus Orientation/consciousness: patient oriented x3 Limitations: no limitations HENMT: Head: Yes normal to inspection Eyes: General: appearance normal, both eyes and all related structures Neck: Neck: Yes normal visual inspection and Yes full ROM Resp: Effort & Inspection: normal respiratory effort and able to speak in complete sentences Auscultation: clear to auscultation bilaterally Cardio: Rate: regular rate Rhythm: regular rhythm Heart sounds: normal S1 and S2 GI: Inspection: Yes normal to inspection Palpation (GI): Soft to palpation and Tenderness to palpation present (GI) in the epigastrum; not at McBurney's point, Garcia's sign negative and with no rebound tenderness Skin: General skin exam: no rashes or lesions noted Neuro: General: patient oriented x3 Extrem: General: Yes normal to inspection Course Course Course Narrative: Patient is a 50-year-old female with a past medical history of Leo Danlos, , GERD, MINO, asthma, hypothyroidism, ADD, shortness of breath who presents with 10 hours of nausea vomiting diarrhea and chills. Vital signs are stable sans for a slightly elevated blood pressure at 155/93. Physical exam remarkable for epigastric pain, patient actively vomiting, writhing in the bed. Patient received Zofran, will give IV Reglan, get EKG, labs, stool testing and abd CT then reassess. Reevaluation(s) Reevaluation #1: EKG NSR, no acute changes, labs WNL, UA neg for infection but + for blood, waiting for CT scan to be done. Time: 10:44 Reevaluation #2: CT of abdomen and pelvis negative for acute pathology, patient unable to provide stool sample thus far. Will discharge home with Zofran prescription, rehydrated patient with IV fluids. Time: 12:11 MDM - Abdominal Pain Medical Records Attestation: I reviewed the patient's medical records. Lab Data Attestation: I reviewed the patient's lab results. Result diagrams: 07/19/20 09:33 07/19/20 09:33 Labs: Lab Results 07/19/20 07/19/20 07/19/20 Range/Units 09:33 09:33 09:33 WBC 8.1 (4.8-10.8) X10*3/uL RBC 4.33 (4.20-5.50) X10*6/uL Hgb 12.7 (12.0-16.0) g/dl Hct 37.7 (37-47) % MCV 87.1 (80-98) fL MCH 29.3 (27.0-33.0) pg MCHC 33.7 (31.0-35.0) g/dl RDW 11.6 (11.0-16.0) % Plt Count 267 (160-400) X10*3/uL MPV 10.0 (9.4-12.3) fL Immature Gran % (Auto) 0.2 (0.0-0.4) % Neut % (Auto) 85.1 H (45-73) % Lymph % (Auto) 11.3 L (20-40) % Henderson % (Auto) 3.0 (2-11) % Eos % (Auto) 0.0 (0-4) % Baso % (Auto) 0.4 (0-2) % Lymph # (Auto) 0.9 L (1.2-4.9) X10*3/uL Henderson # (Auto) 0.2 (0.1-1.2) X10*3/uL Eos # (Auto) 0.0 (0.0-0.4) X10*3/uL Baso # (Auto) 0.0 (0.0-0.2) X10*3/uL Abs Immat Gran (auto) 0.02 (0.00-0.03) X10*3/uL Absolute Neuts (auto) 6.9 (2.0-8.3) X10*3/uL Absolute Nucleated RBC 0.000 (0.0-0.012) X10*3/uL Nucleated RBC % (auto) 0.0 (0.0-0.2) /100WBC PT (10.8-13.0) SEC INR (0.9-1.1) APTT (24.1-38.0) SEC Sodium 136 (135-145) mmol/L Potassium 3.7 (3.3-5.1) mmol/L Chloride 104 (96-108) mmol/L Carbon Dioxide 19 L (22-29) mmol/L Anion Gap 17 (12-20) BUN 11 (9-16) mg/dL Creatinine 0.89 (0.5-1.4) mg/dL Estim Creat Clear Calc 76.9 Estimated GFR > 60 Random Glucose 124 H (60-115) mg/dL Calcium 9.8 (8.4-10.2) mg/dL Total Bilirubin 0.6 (0.0-1.0) mg/dL AST 17 (5-31) U/L ALT 12 (0-31) U/L Alkaline Phosphatase 86 (39-117) U/L Troponin I High Sens (<3.5-17.0) ng/L Total Protein 7.8 (6.5-8.0) g/dL Albumin 4.6 (3.5-5.0) g/dL Lipase 16 (8-78) U/L Urine Color Urine Appearance Urine pH (5.0-8.0) Ur Specific [place] (1.005-1.025) Urine Protein (NEG-TRACE) MG/DL Urine Glucose (UA) (NEG) MG/DL Urine Ketones (NEG) MG/DL Urine Blood (NEG) Urine Nitrite (NEG) Ur Leukocyte Esterase (NEG) Urine RBC (0) /HPF Urine WBC (0-4) /HPF Ur Squamous Epith Cells /LPF Amorphous Sediment /LPF Urine Bacteria /LPF Urine Mucus /LPF Urine Opiates Screen (Not Detect) Ur Barbiturates Screen (Not Detect) Ur Phencyclidine Scrn (Not Detect) Ur Amphetamines Screen (Not Detect) U Benzodiazepines Scrn (Not Detect) Urine Cocaine Screen (Not Detect) U Marijuana (THC) Screen (Not Detect) COVID-19 ([facility]) Negative (Negative) COVID-19 Clin Com See Note 07/19/20 07/19/20 07/19/20 Range/Units 09:33 09:33 10:10 WBC (4.8-10.8) X10*3/uL RBC (4.20-5.50) X10*6/uL Hgb (12.0-16.0) g/dl Hct (37-47) % MCV (80-98) fL MCH (27.0-33.0) pg MCHC (31.0-35.0) g/dl RDW (11.0-16.0) % Plt Count (160-400) X10*3/uL MPV (9.4-12.3) fL Immature Gran % (Auto) (0.0-0.4) % Neut % (Auto) (45-73) % Lymph % (Auto) (20-40) % Henderson % (Auto) (2-11) % Eos % (Auto) (0-4) % Baso % (Auto) (0-2) % Lymph # (Auto) (1.2-4.9) X10*3/uL Henderson # (Auto) (0.1-1.2) X10*3/uL Eos # (Auto) (0.0-0.4) X10*3/uL Baso # (Auto) (0.0-0.2) X10*3/uL Abs Immat Gran (auto) (0.00-0.03) X10*3/uL Absolute Neuts (auto) (2.0-8.3) X10*3/uL Absolute Nucleated RBC (0.0-0.012) X10*3/uL Nucleated RBC % (auto) (0.0-0.2) /100WBC PT 12.7 (10.8-13.0) SEC INR 1.1 (0.9-1.1) APTT 34.3 (24.1-38.0) SEC Sodium (135-145) mmol/L Potassium (3.3-5.1) mmol/L Chloride (96-108) mmol/L Carbon Dioxide (22-29) mmol/L Anion Gap (12-20) BUN (9-16) mg/dL Creatinine (0.5-1.4) mg/dL Estim Creat Clear Calc Estimated GFR Random Glucose (60-115) mg/dL Calcium (8.4-10.2) mg/dL Total Bilirubin (0.0-1.0) mg/dL AST (5-31) U/L ALT (0-31) U/L Alkaline Phosphatase (39-117) U/L Troponin I High Sens 3.6 (<3.5-17.0) ng/L Total Protein (6.5-8.0) g/dL Albumin (3.5-5.0) g/dL Lipase (8-78) U/L Urine Color Urine Appearance Urine pH (5.0-8.0) Ur Specific [place] (1.005-1.025) Urine Protein (NEG-TRACE) MG/DL Urine Glucose (UA) (NEG) MG/DL Urine Ketones (NEG) MG/DL Urine Blood (NEG) Urine Nitrite (NEG) Ur Leukocyte Esterase (NEG) Urine RBC (0) /HPF Urine WBC (0-4) /HPF Ur Squamous Epith Cells /LPF Amorphous Sediment /LPF Urine Bacteria /LPF Urine Mucus /LPF Urine Opiates Screen Not Detected (Not Detect) Ur Barbiturates Screen Not Detected (Not Detect) Ur Phencyclidine Scrn Not Detected (Not Detect) Ur Amphetamines Screen Not Detected (Not Detect) U Benzodiazepines Scrn Not Detected (Not Detect) Urine Cocaine Screen Not Detected (Not Detect) U Marijuana (THC) Screen Not Detected (Not Detect) COVID-19 ([facility]) (Negative) COVID-19 Clin Com 06/12/21 Range/Units 10:10 WBC (4.8-10.8) X10*3/uL RBC (4.20-5.50) X10*6/uL Hgb (12.0-16.0) g/dl Hct (37-47) % MCV (80-98) fL MCH (27.0-33.0) pg MCHC (31.0-35.0) g/dl RDW (11.0-16.0) % Plt Count (160-400) X10*3/uL MPV (9.4-12.3) fL Immature Gran % (Auto) (0.0-0.4) % Neut % (Auto) (45-73) % Lymph % (Auto) (20-40) % Henderson % (Auto) (2-11) % Eos % (Auto) (0-4) % Baso % (Auto) (0-2) % Lymph # (Auto) (1.2-4.9) X10*3/uL Henderson # (Auto) (0.1-1.2) X10*3/uL Eos # (Auto) (0.0-0.4) X10*3/uL Baso # (Auto) (0.0-0.2) X10*3/uL Abs Immat Gran (auto) (0.00-0.03) X10*3/uL Absolute Neuts (auto) (2.0-8.3) X10*3/uL Absolute Nucleated RBC (0.0-0.012) X10*3/uL Nucleated RBC % (auto) (0.0-0.2) /100WBC PT (10.8-13.0) SEC INR (0.9-1.1) APTT (24.1-38.0) SEC Sodium (135-145) mmol/L Potassium (3.3-5.1) mmol/L Chloride (96-108) mmol/L Carbon Dioxide (22-29) mmol/L Anion Gap (12-20) BUN (9-16) mg/dL Creatinine (0.5-1.4) mg/dL Estim Creat Clear Calc Estimated GFR Random Glucose (60-115) mg/dL Calcium (8.4-10.2) mg/dL Total Bilirubin (0.0-1.0) mg/dL AST (5-31) U/L ALT (0-31) U/L Alkaline Phosphatase (39-117) U/L Troponin I High Sens (<3.5-17.0) ng/L Total Protein (6.5-8.0) g/dL Albumin (3.5-5.0) g/dL Lipase (8-78) U/L Urine Color YELLOW Urine Appearance HAZY Urine pH 8.0 (5.0-8.0) Ur Specific [place] 1.010 (1.005-1.025) Urine Protein 1+ H (NEG-TRACE) MG/DL Urine Glucose (UA) NEG (NEG) MG/DL Urine Ketones 15 (NEG) MG/DL Urine Blood TRACE (NEG) Urine Nitrite NEG (NEG) Ur Leukocyte Esterase NEG (NEG) Urine RBC 0-2 (0) /HPF Urine WBC 0 (0-4) /HPF Ur Squamous Epith Cells 1+ /LPF Amorphous Sediment 1+ /LPF Urine Bacteria NONE /LPF Urine Mucus 1+ /LPF Urine Opiates Screen (Not Detect) Ur Barbiturates Screen (Not Detect) Ur Phencyclidine Scrn (Not Detect) Ur Amphetamines Screen (Not Detect) U Benzodiazepines Scrn (Not Detect) Urine Cocaine Screen (Not Detect) U Marijuana (THC) Screen (Not Detect) COVID-19 ([facility]) (Negative) COVID-19 Clin Com Imaging Data CT scan - abdomen: Attestation: I personally reviewed and interpreted this imaging study as follows: Radiologist's impression: [address] Scan ReportSigned Patient: Mary Alice CroninR#: [id number]: 1970Acct:[id number]/Sex: 50 / FADM Date: 07/19/20Loc: [address] Dr: Ordering Physician: Florencia Negrete PA-C Date of Service: 07/19/20 Procedure(s): CT abdomen pelvis wo con Accession Number(s): [id number] cc: Flroencia Negrete PA-C~ EXAMINATION: CT ABDOMEN AND PELVIS WITHOUT CONTRAST CLINICAL INFORMATION: Epigastric pain. Nausea, and vomiting. COMPARISON: None TECHNIQUE: Multidetector volumetric imaging was performed from the superior aspect of the liver through the pubic symphysis. Sagittal and coronal reformatted images were obtained on the technologist's workstation. This CT examination was performed using dose optimization techniques as appropriate, variously including the following: *Automated exposure control *Adjustment of mA and/or kV according to patient size (this includes techniques or standardized protocols for targeted exams where dose is matched to indication/reason for exam; i.e. extremities or head) *Use of iterative reconstruction technique DLP: 563.0 mGy-cm FINDINGS: LUNG BASES: The visualized lung bases are unremarkable. LIVER, GALLBLADDER, AND BILIARY TREE: The liver is normal in size, shape, and attenuation. No focal hepatic lesion or biliary ductal dilatation is present. The gallbladder is unremarkable with no evidence of radiopaque gallstones, gallbladder wall thickening, or obvious pericholecystic inflammatory changes. PANCREAS: Unremarkable. SPLEEN: Unremarkable. ADRENAL GLANDS: Unremarkable. KIDNEYS AND URETERS: The kidneys are normal in size, shape, and attenuation. No hydronephrosis, hydroureter, or calculi seen. No perinephric stranding. BLADDER: Suboptimally distended, grossly appears unremarkable. GASTROINTESTINAL TRACT: The small and large bowel are unremarkable. The appendix is nonvisualized without any inflammatory changes around the cecum. Specific note is made of presence of intraluminal contrast within the large bowel likely from prior ingestion of oral contrast. Please correlate clinically. ABDOMINAL WALL: No significant hernia is appreciated. LYMPH NODES: Normal. VASCULAR: Unremarkable. PELVIC VISCERA: There is no pelvic mass present. There is no free fluid and/or free air present. OSSEOUS STRUCTURES: Mild diffuse osteopenia. Nonspecific asymmetric sclerosis is present involving the right iliac bone at the level of the SI joint, of indeterminate etiology. CT/CT abdomen pelvis wo con IMPRESSION: 1. No CT evidence of any acute intra-abdominal and/or intrapelvic pathology is present. 2. Mild diffuse osteopenia. 3. Asymmetric sclerosis involving the right iliac bone, of indeterminate etiology. 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 If you develop a fever you can not control with Tylenol or Motrin, vomit up bloody or coffee-ground like substances or have diarrhea which is bloody or black or cannot tolerate drinking or eating more than 48 hours, please return to the emergency department. Otherwise, all of your labs today were within normal limits, your abdominal CT scan showed no acute issues. I will send Nando to your pharmacy to help with the nausea Prescriptions: New ondansetron HCl [Zofran] 4 mg tablet 4 mg PO Q8H PRN (Reason: nausea and vomiting) Qty: 7 RF: 0 No Action albuterol sulfate [Ventolin HFA] 90 mcg/actuation HFA aerosol inhaler 2 puff inhalation Q4-6H PRN (Reason: shortness of breath or wheezing) 30 Days Qty: 18 RF: 6 dextroamphetamine-amphetamine 10 mg tablet 10 mg PO DAILY 30 Days Qty: 30 RF: 0 Xolair 150 mg/mL syringe 150 mg subcut Q4W 28 Days Qty: 1 RF: 12 zolpidem 10 mg tablet 10 mg PO BEDTIME PRN (Reason: insomnia) 30 Days Qty: 30 RF: 0 oxycodone 10 mg tablet 10 mg PO Q4-6H PRN (Reason: pain) Qty: 40 RF: 0 ondansetron HCl [Zofran] 4 mg tablet 4 mg PO Q6H PRN (Reason: nausea and vomiting) Qty: 7 RF: 0 loratadine 10 mg tablet 10 mg PO DAILY RF: 0 tramadol 50 mg tablet 50 mg PO TID PRN (Reason: pain) 30 Days Qty: 90 RF: 0 albuterol sulfate [ProAir HFA] 90 mcg/actuation HFA aerosol inhaler 2 puff inhalation Q6H PRN (Reason: shortness of breath or wheezing) 30 Days Qty: 8.5 RF: 6 gabapentin 600 mg tablet 600 mg PO .four times a day 30 Days Qty: 120 RF: 6 levothyroxine 100 mcg tablet 100 mcg PO DAILY 90 Days Qty: 90 RF: 1 oxycodone 5 mg tablet 5 mg PO Q6H PRN (Reason: pain) 28 Days Qty: 100 RF: 0 omeprazole 20 mg capsule,delayed release(DR/EC) 20 mg PO DAILY 90 Days Qty: 90 RF: 1 Breo Ellipta 200-25 mcg/dose blister with device 1 inh inhalation DAILY 30 Days Qty: 1 RF: 6 Referrals: Abby Hancock MD [Primary Care Provider] - 2 days (if symptoms persist) [facility] Past Medical History Medical History ADD (attention deficit disorder) Asthma Leo-Danlos syndrome GERD (gastroesophageal reflux disease) Hypothyroidism Hypovitaminosis D Mild persistent asthma MINO (obstructive sleep apnea) Polyarthralgia Shortness of breath Syncope and collapse Thyroid nodule Surgical History History of cystocele History of repair of rectocele History of umbilical hernia repair Family History Family History Father CVD (cardiovascular disease) Mother Hypertension Maternal Grandfather CVD (cardiovascular disease) Chronic mental illness Maternal Aunt Thyroid cancer Social History Social History Alcohol intake: never Second Hand Smoke Exposure: No Advance Directives: No Advance Directives Information Provided: No Patient : No Current occupational status: employed 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
[2020-07-19] MEDS: Metoclopramide HCl 10 MG/2 ML VIAL IVPUSH (09:34)
[2020-07-19 09:39] LABS: MANUAL DIFF FLAG NO
[2020-07-19 09:41] LABS: Basophils Percent Auto 0.4 % (0-2); Hematocrit 37.7 % (37-47); Hemoglobin 12.7 g/dl (12.0-16.0); Imm Gran Abs Auto 0.02 X10*3/uL (0.00-0.03); Imm Gran Pct Auto 0.2 % (0.0-0.4); Lymphocytes Absolute Auto 0.9 X10*3/uL (1.2-4.9); Lymphocytes Percent Auto 11.3 % (20-40); Mean Corpuscular HGB Conc 33.7 g/dl (31.0-35.0); Mean Corpuscular Hemoglobin 29.3 pg (27.0-33.0); Mean Corpuscular Volume 87.1 fL (80-98); Monocytes Absolute Auto 0.2 X10*3/uL (0.1-1.2); Neutrophils Absolute Auto 6.9 X10*3/uL (2.0-8.3); Neutrophils Percent Auto 85.1 % (45-73); Platelet Count 267 X10*3/uL (160-400); Red Blood Count 4.33 X10*6/uL (4.20-5.50); Red Cell Distribution Width 11.6 % (11.0-16.0); White Blood Count 8.1 X10*3/uL (4.8-10.8)
[2020-07-19 09:46] LABS: INTERNATIONAL NORM RATIO 1.1 (0.9-1.1); Prothrombin Time 12.7 SEC (10.8-13.0)
[2020-07-19 09:49] LABS: Partial Thromboplastin Time 34.3 SEC (24.1-38.0)
[2020-07-19 10:07] LABS: Alanine Aminotransferase 12 U/L (0-31); Albumin Level 4.6 g/dL (3.5-5.0); Alkaline Phosphatase 86 U/L (39-117); Anion Gap 17 (12-20); Aspartate Amino Transferase 17 U/L (5-31); Bilirubin Total 0.6 mg/dL (0.0-1.0); Blood Urea Nitrogen 11 mg/dL (9-16); Calcium 9.8 mg/dL (8.4-10.2); Carbon Dioxide 19 mmol/L (22-29); Chloride 104 mmol/L (96-108); Creatinine Clr Calc Pharmacy 76.9; Estimated Glomerular Filt Rate > 60; Glucose Random 124 mg/dL (60-115); Lipase 16 U/L (8-78); Potassium 3.7 mmol/L (3.3-5.1); Sodium 136 mmol/L (135-145); Total Protein 7.8 g/dL (6.5-8.0)
[2020-07-19 10:09] LABS: Troponin-I High Sensitivity 3.6 ng/L (<3.5-17.0)
[2020-07-19 10:10] VITALS: BP 150/80; PULSE 80; RESP 16; TEMP 36.6; O2SAT 100
[2020-07-19 10:22] LABS: Glucose Urine UA NEG (NEG); Leukocyte Esterase Urine NEG (NEG); Nitrite Urine NEG (NEG); Urine Blood TRACE (NEG); Urine Ketones 15 MG/DL (NEG); Urine Protein 1+ MG/DL (NEG-TRACE)
[2020-07-19 10:23] LABS: Appearance Urine HAZY; Color Urine YELLOW
[2020-07-19 10:23] LABS: COVID-19 Test Negative (Negative); IDNOW Serial# 9DD0AD1C
[2020-07-19 10:31] LABS: Amorphous Sediment Urine 1+ /LPF; Mucus Urine 1+ /LPF; RBC Urine 0-2 /HPF (0); Squamous Epithelial Cell Urine 1+ /LPF; WBC Urine 0 /HPF (0-4)
[2020-07-19 10:39] LABS: Amphetamine Screen Urine Not Detected (Not Detect); Barbiturates, Urine Not Detected (Not Detect); Benzodiazepines Screen Urine Not Detected (Not Detect); Cannabinoid Screen Urine Not Detected (Not Detect); Cocaine Screen Urine Not Detected (Not Detect); Opiate Screen Urine Not Detected (Not Detect); Phencyclidine Screen Urine Not Detected (Not Detect)
[2020-07-19] MEDS: Lactated Ringers 1,000 ML 999 ML IV (10:59)
== END 2020-07-19 13:12 | disposition home or self-care (01) ==
PROVIDERS: Physician Assistant; Emergency Provider Emergency Medicine Emergency Medical Services; PCP Internal Medicine
DX: K52.9 Noninfective gastroenteritis and colitis, unspecified (principal); R11.2 Nausea with vomiting, unspecified; Z20.822 Contact with and (suspected) exposure to COVID-19; R68.83 Chills (without fever)
CPT/HCPCS: 36415; 74176; 80053; 80307; 81001; 83690; 84484; 85025; 85610; 85730; 87635; 93005; 96361; 96374; 96375; 99284; J2405; J2765

== ENCOUNTER 2020-07-29 11:06 | Outpatient (REF) | payer OTHER, SELFPAY ==
--- NOTE | ~2020-07-29 | XR_ITS ---
EXAMINATION: XR ANKLE, RIGHT CLINICAL INFORMATION: Followup fracture right fibula. COMPARISON: Right ankle 06/24/2020 TECHNIQUE: AP, lateral, and mortise views of the right ankle. FINDINGS: There is a right distal fibular fracture stabilized with metallic plate and screws in alignment. The ankle mortise and subtalar joints are normal. Surgical kassandra have been removed. XR/XR ankle RT min 3V IMPRESSION: Stable slowly healing distal fibular fracture with lateral metallic plate and screws. No hardware abnormality seen.
== END 2020-07-29 11:07 | disposition home or self-care (01) ==
LOC: HO.XRAY 11:06
PROVIDERS: PCP Internal Medicine; Visit Provider Physician Assistant
DX: S82.831D Other fracture of upper and lower end of right fibula, subsequent encounter for closed fracture with routine healing (principal); Z98.890 Other specified postprocedural states; Z87.81 Personal history of (healed) traumatic fracture
CPT/HCPCS: 73610; 99212

== ENCOUNTER → 2020-08-26 13:44 | Outpatient (BNVA) | payer OTHER, SELFPAY | PROVIDERS: PCP Internal Medicine; Visit Provider Physician Assistant | DX: S82.831A Other fracture of upper and lower end of right fibula, initial encounter for closed fracture (principal); X58.XXXA Exposure to other specified factors, initial encounter; Y93.9 Activity, unspecified; Y92.9 Unspecified place or not applicable; Y99.8 Other external cause status; Z98.890 Other specified postprocedural states; Z87.81 Personal history of (healed) traumatic fracture | CPT/HCPCS: 99212 ==

== ENCOUNTER → 2020-09-15 10:32 | Outpatient (REF) | payer OTHER, SELFPAY | LOC: HO.SL 10:32 | PROVIDERS: PCP Internal Medicine; Visit Provider Internal Medicine Pulmonary Disease | DX: G47.33 Obstructive sleep apnea (adult) (pediatric) (principal) | CPT/HCPCS: 95806 ==

== ENCOUNTER 2020-09-22 09:13 | Outpatient (REF) | payer OTHER, SELFPAY ==
--- NOTE | ~2020-09-22 | FL_ITS ---
EXAMINATION: XR GI SERIES CLINICAL INFORMATION: Gastroesophageal reflux disease without esophagitis. COMPARISON: None TECHNIQUE: Routine upper GI air-contrast study was performed in upright and lying position. FINDINGS: Following oral administration of thick barium and effervescent granules, there is normal propagation of bolus from the oral cavity through the pharynx, esophagus into stomach without any obstruction, narrowing or stricture. On placing patient supine and prone lying, the course, caliber and peristalsis of the stomach are normal. There is moderate gastroesophageal reflux with sliding hiatal hernia. The mucosal pattern of the stomach, duodenal bulb and the sweep is normal. FLUOROSCOPY TIME: 1.1 minutes DOSE AREA PRODUCT: 11.138 uGy-m2 (microgray-meter squared) FL/FL upper GI series IMPRESSION: Moderate gastroesophageal reflux with sliding hiatal hernia.
== END 2020-09-22 09:14 | disposition home or self-care (01) ==
LOC: HO.XRAY 09:13
PROVIDERS: PCP Internal Medicine; Visit Provider Internal Medicine
DX: K21.9 Gastro-esophageal reflux disease without esophagitis (principal)
CPT/HCPCS: 74240

== ENCOUNTER 2020-09-23 | Outpatient (REF) | payer OTHER, SELFPAY | END 2020-09-23 00:01 | LOC: HO.LAB | PROVIDERS: PCP Internal Medicine; Visit Provider Internal Medicine | DX: S82.831D Other fracture of upper and lower end of right fibula, subsequent encounter for closed fracture with routine healing (principal); X58.XXXD Exposure to other specified factors, subsequent encounter; Z88.6 Allergy status to analgesic agent; Z88.8 Allergy status to other drugs, medicaments and biological substances | CPT/HCPCS: 99212 ==

== ENCOUNTER 2020-10-15 10:12 | Outpatient (REF) | payer OTHER, SELFPAY ==
--- NOTE | ~2020-10-15 | US_ITS ---
EXAMINATION: US THYROID CLINICAL INFORMATION: Nontoxic single thyroid nodule. COMPARISON: Ultrasound soft tissue head/neck thyroid dated 08/25/2018 and 02/23/2018. TECHNIQUE: Linear transducer grayscale and color Doppler examination with attention to the region of the thyroid. FINDINGS: SIZE: Measurements of the thyroid lobes and nodules are given in sagittal, anteroposterior and transverse dimensions respectively. Right Thyroid Lobe: 5.0 x 1.8 x 2.0 cm, volume 9.2 mL. Previously 5.4 x 2.1 x 1.5 cm, volume 8.7 mL. Parenchyma: The gland echotexture is heterogeneous. Thyroid vascularity is slightly increased. Left Thyroid Lobe: 5.1 x 1.8 x 1.8 cm, volume 9.0 mL. Previously 5.0 x 2.0 x 1.7 cm, volume 9.3 mL. Parenchyma: The gland echotexture is heterogeneous. Thyroid vascularity is slightly increased. Isthmus: 0.3 cm in maximum AP dimension. Previously 0.3 cm. Estimated total number of nodules greater than or equal to 1 cm: 1. Application Development Director nodules are described as follows: 1. Location: Right inferior. Size: 0.9 x 0.5 x 1.1 cm, volume 0.3 mL. Previously: 0.9 x 1.1 x 1.0 cm, volume 0.5 mL. Nodule characteristics: Composition: Solid/almost completely solid (2). Echogenicity: Isoechoic (1). Shape: Not taller than wide (0). Margins: Smooth (0). Echogenic Foci: None (0). ACR TI-RADS total points: 3 ACR TI-RADS category: 3 Significant change in size (>/= 20% in 2 dimensions and minimal increase of 2 mm or 50% or greater increase in volume): Change in features: Change in ACR TI-RADS risk category: 2. Location: Right inferior. Size: 0.7 x 0.6 x 0.7 cm, volume 0.2 mL. Previously: 0.9 x 0.8 x 0.9 cm, volume 0.3 mL. Nodule characteristics: Composition: Solid (2). Echogenicity: Isoechoic (1). Shape: Not taller than wide (0). Margins: Smooth (0). Echogenic Foci: None (0). ACR TI-RADS total points: 3 ACR TI-RADS category: 3 Significant change in size (>/= 20% in 2 dimensions and minimal increase of 2 mm or 50% or greater increase in volume): Change in features: Change in ACR TI-RADS risk category: 3. Location: Left inferior. Size: 0.7 x 0.4 x 0.7 cm, volume 0.1 mL. Previously: 0.7 x 0.7 x 0.5 cm, volume 0.1 mL. Nodule characteristics: Composition: Solid (2). Echogenicity: Isoechoic (1). Shape: Not taller than wide (0). Margins: Smooth (0). Echogenic Foci: None (0). ACR TI-RADS total points: 3 ACR TI-RADS category: 3 Significant change in size (>/= 20% in 2 dimensions and minimal increase of 2 mm or 50% or greater increase in volume): Change in features: Change in ACR TI-RADS risk category: NODES: No lymphadenopathy is seen in the tissue surrounding the thyroid gland. US/US thyroid IMPRESSION: Slightly enlarged heterogeneous hypervascular thyroid gland. No change in bilateral thyroid nodules.. ACR TI-RADS RECOMMENDATION REFERENCE: Ultrasound-guided fine-needle aspiration, followup ultrasound, no further follow up. * TR1 (0 point) and TR 2 (2 points): No FNA or follow up * TR3 (3 points): FNA if more than or equal to 2.5 cm in maximum dimension, followup ultrasound in 1, 3 and 5 years if 1.5 to 2.4 cm in maximum dimension. * TR4 (4-6 points): FNA if more than or equal to 1.5 cm in maximum dimension, followup ultrasound in 1, 2, 3 and 5 years if 1 to 1.4 cm in maximum dimension. * TR5 (more than or equal to 7 points): FNA if more than or equal to 1 cm in maximum dimension, followup ultrasound every year for 5 years if 0.5 to 0.9 cm in maximum dimension. * TR3, TR4 or TR5 nodules that are below the size threshold for follow up receive no follow up.
== END 2020-10-15 10:13 | disposition home or self-care (01) ==
LOC: HO.US 10:12
PROVIDERS: Visit Provider Internal Medicine
DX: E04.1 Nontoxic single thyroid nodule (principal)
CPT/HCPCS: 76536

== ENCOUNTER 2020-10-17 08:42 | Outpatient (REF) | payer OTHER, SELFPAY ==
--- NOTE | ~2020-10-17 | MM_ITS ---
EXAMINATION: BONE DENSITOMETRY CLINICAL INDICATION: Menopause. COMPARISON: None (current study represents initial baseline exam). TECHNIQUE: Using a [employer] DXA System (software version: 13.1) manufactured by [employer], dual-energy x-ray absorptiometry was performed of the lumbar spine and left hip. The images are of good technical quality. Summary results are attached. FINDINGS: AP SPINE L1-L4: BMD 0.967 g/cm2, Z-score -1.3, T-score -1.8, osteopenia. LEFT FEMUR, NECK: BMD 0.640 g/cm2, Z-score -2.0, T-score -2.9, osteoporosis. LEFT FEMUR, TOTAL: BMD 0.701 g/cm2, Z-score -1.9, T-score -2.4, osteopenia. IDENTIFIED RISK FACTORS: Menopause, history of fracture (adult), recurrent falls, secondary osteoporosis. HISTORY OF FRACTURE: Fibula. MEDICATIONS: None listed. MM/XR DEXA axial skeleton IMPRESSION: 1. DIAGNOSIS: Osteoporosis based on the lowest T-score value of -2.9 in the femoral neck applying World Health Organization criteria. 2. 10-YEAR FRACTURE RISK PREDICTION, FRAX: Major osteoporotic fracture (clinical spine, forearm, hip or shoulder) 9.5%. Hip fracture 2.8%. 3. Treatment Recommendations: NOF guidelines recommend consideration for treatment in postmenopausal women and men age 50 and older presenting with the following: -A hip or vertebral (clinical or morphometric) fracture. -T-score less than or equal to -2.5 at the femoral neck or spine after appropriate evaluation to exclude secondary causes. -Low bone mass at the hip or spine and a 10-year fracture probability by FRAX of greater than or equal to 3% for hip fracture or greater than or equal to 20% for major osteoporotic fracture based on the [place] adapted WHO algorithm. 4. Other Recommendations: All treatment decisions require clinical judgment and consideration of individual patient factors, including patient preferences, comorbidities, previous drug use, risk factors not captured in the FRAX model (e.g. frailty, falls, vitamin D deficiency, increased bone turnover, interval significant decline in bone density) and possible under or overestimation of fracture risk by FRAX. Additional medical evaluation for secondary cause of low bone mineral density may be appropriate. FUTURE SCAN RECOMMENDATION: People with diagnosed cases of osteoporosis or at high risk for fracture should have regular bone mineral density tests. For patients eligible for Medicare, routine testing is allowed once every 2 years. The testing frequency can be increased to one year for patients who have rapidly progressing disease, those who are receiving or discontinuing medical therapy to restore bone mass, or have additional risk factors.
== END 2020-10-17 08:43 | disposition home or self-care (01) ==
LOC: HO.MAMMO 08:42
PROVIDERS: Visit Provider Internal Medicine
DX: Z13.820 Encounter for screening for osteoporosis (principal); M81.0 Age-related osteoporosis without current pathological fracture; M85.80 Other specified disorders of bone density and structure, unspecified site; Z78.0 Asymptomatic menopausal state; Z87.81 Personal history of (healed) traumatic fracture; Z91.81 History of falling
CPT/HCPCS: 77080

== ENCOUNTER 2020-10-20 07:35 | Outpatient (REF) | payer OTHER, SELFPAY ==
--- NOTE | ~2020-10-20 | MM_ITS ---
EXAMINATION: MM SCREENING DIGITAL BREAST TOMOSYNTHESIS, BILATERAL CLINICAL INFORMATION: Screening. Asymptomatic. The lifetime risk of breast cancer based on the Tyrer-Cuzick Model is 10%. COMPARISON: Mammography: 04/20/2017, 03/17/2016, 01/20/2015 TECHNIQUE: Digital breast tomosynthesis is performed in both the craniocaudal and mediolateral oblique views along with computer-aided detection (CAD). Synthesized 2D images are generated from the tomosynthesis. FINDINGS: The breasts are extremely dense, which lowers the sensitivity of mammography (ACR BI-RADS breast composition Category d). There are no significant masses, abnormal calcifications, or other abnormalities. Parenchymal pattern is similar to prior exam. No significant changes. MM/MM tomosynthesis screening BI IMPRESSION: No mammographic evidence of malignancy. ASSESSMENT: BI-RADS 1: Negative RECOMMENDATION: Routine annual mammography screening. This patient's information was entered into a reminder system with a target due date for their next mammogram.
== END 2020-10-20 07:36 | disposition home or self-care (01) ==
LOC: HO.MAMMO 07:35
PROVIDERS: Visit Provider Internal Medicine
DX: Z12.31 Encounter for screening mammogram for malignant neoplasm of breast (principal)
CPT/HCPCS: 77063; 77067

== ENCOUNTER 2020-10-20 09:58 | Outpatient (REF) | payer OTHER, SELFPAY | END 2020-10-20 09:59 | disposition home or self-care (01) | LOC: HO.MDS 09:58 | PROVIDERS: PCP Internal Medicine; Visit Provider Internal Medicine Pulmonary Disease | DX: J45.50 Severe persistent asthma, uncomplicated (principal) | CPT/HCPCS: 96372; J2357 ==

== ENCOUNTER 2020-10-31 07:41 | Outpatient (REF) | payer OTHER, SELFPAY ==
--- NOTE | ~2020-10-31 | MM_ITS ---
EXAMINATION: MM DIAGNOSTIC DIGITAL MAMMOGRAPHY, LEFT CLINICAL INFORMATION: Left breast calcifications. COMPARISON: Mammography: 10/20/2020 and studies dating back to 01/20/2015. TECHNIQUE: Digital mammography is performed in the following views: Spot magnification views in craniocaudal and 90 degree mediolateral views. FINDINGS: The breasts are extremely dense, which lowers the sensitivity of mammography (ACR BI-RADS breast composition Category d). There are again noted to be some scattered and grouped calcifications with some calcifications within a linear pattern within the upper outer aspect of the left breast. These appear to be associated with a blood vessel and appear to have been faintly evident on prior studies dating back to 03/17/2016 to some degree but not as well seen. There is also noted to be a single calcification demonstrating milk of calcium within a cyst. Results are provided to the patient at time of visit by the technologist. MM/MM added views LT IMPRESSION: Left breast linear calcifications likely represent vascular calcifications. Recommend 6 month followup magnification views of the left breast. ASSESSMENT: BI-RADS 3: Probably Benign RECOMMENDATION: Diagnostic 6 month spot magnification views left breast. This patient's information was entered into a reminder system with a target due date for their next mammogram.
== END 2020-10-31 07:42 | disposition home or self-care (01) ==
LOC: HO.MAMMO 07:41
PROVIDERS: Visit Provider Internal Medicine
DX: R92.1 Mammographic calcification found on diagnostic imaging of breast (principal)
CPT/HCPCS: 77065

== ENCOUNTER 2020-11-26 10:01 | Outpatient (REF) | payer OTHER, SELFPAY | END 2020-11-26 10:02 | disposition home or self-care (01) | LOC: HO.MDS 10:01 | PROVIDERS: PCP Internal Medicine; Visit Provider Internal Medicine Pulmonary Disease | DX: J45.50 Severe persistent asthma, uncomplicated (principal) | CPT/HCPCS: 96372; J2357 ==

== ENCOUNTER 2020-12-24 09:55 | Outpatient (REF) | payer OTHER, SELFPAY | END 2020-12-24 09:56 | disposition home or self-care (01) | LOC: HO.MDS 09:55 | PROVIDERS: PCP Internal Medicine; Visit Provider Internal Medicine Pulmonary Disease | DX: J45.50 Severe persistent asthma, uncomplicated (principal) | CPT/HCPCS: 96372; J2357 ==

== ENCOUNTER 2020-12-24 10:24 | Outpatient (REF) | payer OTHER, SELFPAY ==
[2020-12-24 10:45] LABS: MANUAL DIFF FLAG NO
[2020-12-24 10:53] LABS: Basophils Absolute Auto 0.1 X10*3/uL (0.0-0.2); Basophils Percent Auto 1.1 % (0-2); Eosinophils Absolute Auto 0.2 X10*3/uL (0.0-0.4); Eosinophils Percent Auto 4.8 % (0-4); Hematocrit 40.9 % (37.0-47.0); Hemoglobin 13.1 g/dl (12.0-16.0); Imm Gran Abs Auto 0.01 X10*3/uL (0.00-0.03); Imm Gran Pct Auto 0.2 % (0.0-0.4); Lymphocytes Absolute Auto 1.8 X10*3/uL (1.2-4.9); Lymphocytes Percent Auto 38.5 % (20-40); Mean Corpuscular Hemoglobin 29.3 pg (27.0-33.0); Mean Corpuscular Volume 91.5 fL (80.0-98.0); Mean Platelet Volume 10.7 fL (9.4-12.3); Monocytes Absolute Auto 0.3 X10*3/uL (0.1-1.2); Monocytes Percent Auto 5.8 % (2-11); Neutrophils Absolute Auto 2.3 x10*3/uL (2.0-8.3); Neutrophils Percent Auto 49.6 % (45-73); Platelet Count 244 X10*3/uL (160-400); Red Blood Count 4.47 X10*6/uL (4.20-5.50); Red Cell Distribution Width 12.5 % (11.0-16.0); White Blood Count 4.6 X10*3/uL (4.8-10.8)
[2020-12-24 11:27] LABS: Alanine Aminotransferase 12 U/L (0-31); Albumin Level 4.4 g/dL (3.5-5.0); Alkaline Phosphatase 82 U/L (39-117); Anion Gap 10 (12-20); Aspartate Amino Transferase 16 U/L (5-31); Bilirubin Total 0.4 mg/dL (0.0-1.0); Blood Urea Nitrogen 10 mg/dL (9-16); Calcium 9.6 mg/dL (8.4-10.2); Carbon Dioxide 27 mmol/L (22-29); Chloride 109 mmol/L (96-108); Estimated Glomerular Filt Rate 60; Glucose Fasting 96 mg/dL (60-99); Potassium 4.5 mmol/L (3.3-5.1); Sodium 141 mmol/L (135-145); Total Protein 7.2 g/dL (6.5-8.0)
[2020-12-24 11:49] LABS: Thyroid Stimulating Hormone 3.96 uIU/mL (0.32-4.0)
[2020-12-24 12:06] LABS: TSH reflex Free T4 3.85 uIU/mL (0.32-4.0)
[2020-12-26 22:51] LABS: Immunoglobulin E 264 kU/L (<OR=114)
[2020-12-29 12:36] LABS: Vitamin D 25-OH, D2 7 ng/mL; Vitamin D 25-OH, D3 16 ng/mL; Vitamin D 25-OH, Total 23 ng/mL (30-100)
== END 2020-12-24 10:25 | disposition home or self-care (01) ==
LOC: HO.LAB 10:24
PROVIDERS: Internal Medicine Pulmonary Disease; PCP Internal Medicine; Visit Provider Internal Medicine
DX: Z91.09 Other allergy status, other than to drugs and biological substances (principal); E04.1 Nontoxic single thyroid nodule; D64.9 Anemia, unspecified; K21.9 Gastro-esophageal reflux disease without esophagitis; E03.8 Other specified hypothyroidism; E06.3 Autoimmune thyroiditis; E55.9 Vitamin D deficiency, unspecified
CPT/HCPCS: 36415; 80053; 82306; 82785; 84443; 85025

== ENCOUNTER 2021-01-21 09:56 | Outpatient (REF) | payer OTHER, SELFPAY | END 2021-01-21 09:57 | disposition home or self-care (01) | LOC: HO.MDS 09:56 | PROVIDERS: PCP Internal Medicine; Visit Provider Internal Medicine Pulmonary Disease | DX: J45.50 Severe persistent asthma, uncomplicated (principal) | CPT/HCPCS: 96372; J2357 ==

== ENCOUNTER 2021-04-27 07:51 | Outpatient (REF) | payer OTHER, SELFPAY ==
--- NOTE | ~2021-04-27 | MM_ITS ---
EXAMINATION: MM DIAGNOSTIC DIGITAL BREAST TOMOSYNTHESIS, LEFT CLINICAL INFORMATION: 6 months follow-up left breast calcifications. COMPARISON: Mammography: 10/31/2020 and studies dating back to 01/20/2015. TECHNIQUE: Digital breast tomosynthesis is performed in both the craniocaudal and mediolateral oblique views along with computer-aided detection (CAD). Synthesized 2D images are generated from the tomosynthesis. Spot magnification views of the left breast in craniocaudal and 90-degree mediolateral views performed. FINDINGS: The breasts are extremely dense, which lowers the sensitivity of mammography (ACR BI-RADS breast composition Category d). There is stability of calcifications about the central and upper outer aspects of the left breast. The study of 10/20/2020 and with evidence of calcifications but not as well seen on study of 04/20/2017. No new more suspicious grouping of microcalcifications identified. No new abnormal dominant mass. Recommend 6-month bilateral mammography to include left breast spot magnification views in craniocaudal and 90-degree mediolateral views. Results are provided to the patient at time of visit by the technologist. MM/MM tomosynthesis diagnostic LT IMPRESSION: There are no significant changes from prior study. ASSESSMENT: BI-RADS 3: Probably Benign RECOMMENDATION: Diagnostic mammography in 6 months. This patient's information was entered into a reminder system with a target due date for their next mammogram.
== END 2021-04-27 07:52 | disposition home or self-care (01) ==
LOC: HO.MAMMO 07:51
PROVIDERS: PCP Internal Medicine; Visit Provider Internal Medicine
DX: R92.1 Mammographic calcification found on diagnostic imaging of breast (principal)
CPT/HCPCS: 77061; 77065

== ENCOUNTER 2021-05-13 08:39 | Outpatient (REF) | payer OTHER, SELFPAY | END 2021-05-13 08:40 | disposition home or self-care (01) | LOC: HO.MDS 08:39 | PROVIDERS: PCP Internal Medicine; Visit Provider Internal Medicine Pulmonary Disease | DX: J45.50 Severe persistent asthma, uncomplicated (principal) | CPT/HCPCS: 96372; J2357 ==

== ENCOUNTER → 2021-05-15 15:31 | Outpatient (BNVA) | payer OTHER, SELFPAY | PROVIDERS: PCP Internal Medicine; Visit Provider Internal Medicine Pulmonary Disease | DX: J45.40 Moderate persistent asthma, uncomplicated (principal); Z91.09 Other allergy status, other than to drugs and biological substances | CPT/HCPCS: 99212 ==

== ENCOUNTER 2021-06-03 09:39 | Outpatient (REF) | payer OTHER, SELFPAY ==
[2021-06-03 10:00] LABS: MANUAL DIFF FLAG NO
[2021-06-03 10:21] LABS: Basophils Percent Auto 0.6 % (0-2); Eosinophils Absolute Auto 0.2 X10*3/uL (0.0-0.4); Eosinophils Percent Auto 2.9 % (0-4); Hemoglobin 12.1 g/dl (12.0-16.0); Imm Gran Abs Auto 0.02 X10*3/uL (0.00-0.03); Imm Gran Pct Auto 0.3 % (0.0-0.4); Lymphocytes Absolute Auto 1.8 X10*3/uL (1.2-4.9); Lymphocytes Percent Auto 26.8 % (20-40); Mean Corpuscular HGB Conc 31.8 g/dl (31.0-35.0); Mean Corpuscular Hemoglobin 29.2 pg (27.0-33.0); Mean Corpuscular Volume 91.6 fL (80.0-98.0); Mean Platelet Volume 10.2 fL (9.4-12.3); Monocytes Absolute Auto 0.4 X10*3/uL (0.1-1.2); Monocytes Percent Auto 6.1 % (2-11); Neutrophils Absolute Auto 4.3 x10*3/uL (2.0-8.3); Neutrophils Percent Auto 63.3 % (45-73); Platelet Count 246 X10*3/uL (160-400); Red Blood Count 4.15 X10*6/uL (4.20-5.50); Red Cell Distribution Width 12.5 % (11.0-16.0); White Blood Count 6.8 X10*3/uL (4.8-10.8)
[2021-06-03 11:01] LABS: Thyroid Stimulating Hormone 4.45 uIU/mL (0.32-4.0)
[2021-06-08 12:17] LABS: Vitamin D 25-OH, D2 6 ng/mL; Vitamin D 25-OH, D3 17 ng/mL; Vitamin D 25-OH, Total 23 ng/mL (30-100)
== END 2021-06-03 09:40 | disposition home or self-care (01) ==
LOC: HO.LAB 09:39
PROVIDERS: PCP Internal Medicine; Visit Provider Internal Medicine
DX: E55.9 Vitamin D deficiency, unspecified (principal); D64.9 Anemia, unspecified; E06.3 Autoimmune thyroiditis
CPT/HCPCS: 36415; 82306; 84443; 85025

== ENCOUNTER 2021-06-10 08:38 | Outpatient (REF) | payer OTHER, SELFPAY | END 2021-06-10 08:39 | disposition home or self-care (01) | LOC: HO.MDS 08:38 | PROVIDERS: PCP Internal Medicine; Visit Provider Internal Medicine Pulmonary Disease | DX: J45.50 Severe persistent asthma, uncomplicated (principal) | CPT/HCPCS: 96372; J2357 ==

== ENCOUNTER 2021-10-07 07:39 | Outpatient (REF) | payer OTHER, SELFPAY | END 2021-10-07 07:40 | disposition home or self-care (01) | LOC: HO.MDS 07:39 | PROVIDERS: PCP Internal Medicine; Visit Provider Internal Medicine Pulmonary Disease | DX: J45.50 Severe persistent asthma, uncomplicated (principal) | CPT/HCPCS: 96372; J2357 ==

== ENCOUNTER 2021-11-04 07:34 | Outpatient (REF) | payer OTHER, SELFPAY | END 2021-11-04 07:35 | disposition home or self-care (01) | LOC: HO.MDS 07:34 | PROVIDERS: Visit Provider Internal Medicine Pulmonary Disease | DX: J45.50 Severe persistent asthma, uncomplicated (principal) | CPT/HCPCS: 96372; J2357 ==

== ENCOUNTER 2021-11-11 10:59 | Outpatient (REF) | payer OTHER, SELFPAY ==
[2021-11-11 12:21] LABS: Thyroid Stimulating Hormone 0.06 uIU/mL (0.32-4.0); Vitamin D 25-OH Total 29.5 ng/mL (>30)
== END 2021-11-11 11:00 | disposition home or self-care (01) ==
LOC: HO.LAB 10:59
PROVIDERS: PCP Internal Medicine; Visit Provider Internal Medicine
DX: E03.9 Hypothyroidism, unspecified (principal); E55.9 Vitamin D deficiency, unspecified
CPT/HCPCS: 36415; 82306; 84443

== ENCOUNTER 2021-11-20 14:36 | Outpatient (REF) | payer OTHER, SELFPAY ==
--- NOTE | ~2021-11-20 | MM_ITS ---
EXAMINATION: MM DIAGNOSTIC DIGITAL BREAST TOMOSYNTHESIS, BILATERAL CLINICAL INFORMATION: Six-month follow-up left breast calcifications. The lifetime risk of breast cancer based on the Tyrer-Cuzick Model is 5.7%. COMPARISON: Mammography: 04/27/2021 and studies dating back to 01/20/2015. TECHNIQUE: Digital breast tomosynthesis is performed in both the craniocaudal and mediolateral oblique views along with computer-aided detection (CAD). Synthesized 2D images are generated from the tomosynthesis. Additional spot magnification views of the left breast in craniocaudal and 90 degree mediolateral views performed. FINDINGS: The breasts are extremely dense, which lowers the sensitivity of mammography (ACR BI-RADS breast composition Category d). There are no new significant masses, abnormal calcifications, or other abnormalities. The calcifications about the upper outer aspect of the left breast appear stable. Recommend repeat magnification views of the left breast at time of next bilateral mammography. Results are provided to the patient at time of visit by the technologist. MM/MM tomosynthesis diagnostic BI IMPRESSION: There are no significant changes from prior study. ASSESSMENT: BI-RADS 3: Probably Benign RECOMMENDATION: Diagnostic mammography at time of next annual exam, due in 12 months. This patient's information was entered into a reminder system with a target due date for their next mammogram.
== END 2021-11-20 14:37 | disposition home or self-care (01) ==
LOC: HO.MAMMO 14:36
PROVIDERS: PCP Internal Medicine; Visit Provider Internal Medicine
DX: R92.1 Mammographic calcification found on diagnostic imaging of breast (principal)
CPT/HCPCS: 77062; 77066

== ENCOUNTER → 2022-03-05 11:31 | Outpatient (BNVA) | payer OTHER, SELFPAY | PROVIDERS: PCP Internal Medicine; Visit Provider Internal Medicine Pulmonary Disease | DX: Z13.89 Encounter for screening for other disorder (principal) ==

== ENCOUNTER 2022-08-02 08:30 | Outpatient (REF) | payer OTHER, SELFPAY ==
[2022-08-02 08:42] LABS: MANUAL DIFF FLAG NO
[2022-08-02 09:11] LABS: Basophils Absolute Auto 0.1 X10*3/uL (0.0-0.2); Basophils Percent Auto 1.4 % (0-2); Eosinophils Absolute Auto 0.2 X10*3/uL (0.0-0.4); Eosinophils Percent Auto 3.1 % (0-4); Hematocrit 38.7 % (37.0-47.0); Hemoglobin 12.3 g/dl (12.0-16.0); Imm Gran Abs Auto 0.01 X10*3/uL (0.00-0.03); Imm Gran Pct Auto 0.2 % (0.0-0.4); Lymphocytes Absolute Auto 1.9 X10*3/uL (1.2-4.9); Lymphocytes Percent Auto 38.6 % (20-40); Mean Corpuscular HGB Conc 31.8 g/dl (31.0-35.0); Mean Corpuscular Volume 91.3 fL (80.0-98.0); Mean Platelet Volume 10.3 fL (9.4-12.3); Monocytes Absolute Auto 0.3 X10*3/uL (0.1-1.2); Monocytes Percent Auto 6.8 % (2-11); Neutrophils Absolute Auto 2.4 x10*3/uL (2.0-8.3); Neutrophils Percent Auto 49.9 % (45-73); Platelet Count 246 X10*3/uL (160-400); Red Blood Count 4.24 X10*6/uL (4.20-5.50); Red Cell Distribution Width 12.7 % (11.0-16.0); White Blood Count 4.9 X10*3/uL (4.8-10.8)
[2022-08-02 10:11] LABS: Alanine Aminotransferase 9 U/L (0-31); Albumin Level 4.2 g/dL (3.5-5.0); Alkaline Phosphatase 89 U/L (39-117); Anion Gap 11 (12-20); Aspartate Amino Transferase 15 U/L (5-31); Bilirubin Total 0.5 mg/dL (0.0-1.0); Blood Urea Nitrogen 10 mg/dL (9-16); Calcium 9.7 mg/dL (8.4-10.2); Carbon Dioxide 27 mmol/L (22-29); Chloride 106 mmol/L (96-108); Cholesterol 212 mg/dL; Estimated Glomerular Filt Rate 52; Glucose Fasting 91 mg/dL (60-99); HDL Cholesterol 46 mg/dL; LDL Cholesterol Calculated 141 mg/dl; Potassium 4.8 mmol/L (3.3-5.1); Sodium 139 mmol/L (135-145); Total Protein 7.6 g/dL (6.5-8.0); Triglycerides 129 mg/dL
[2022-08-02 10:27] LABS: Thyroid Stimulating Hormone 0.64 uIU/mL (0.32-4.0); Vitamin D 25-OH Total 31.8 ng/mL (>30)
== END 2022-08-02 08:31 | disposition home or self-care (01) ==
LOC: HO.LAB 08:30
PROVIDERS: Internal Medicine Pulmonary Disease; PCP Internal Medicine; Visit Provider Internal Medicine
DX: Z00.00 Encounter for general adult medical examination without abnormal findings (principal); E06.3 Autoimmune thyroiditis; Q79.60 Ehlers-Danlos syndrome, unspecified; E55.9 Vitamin D deficiency, unspecified; Z91.09 Other allergy status, other than to drugs and biological substances
CPT/HCPCS: 36415; 80053; 80061; 82306; 82785; 84443; 85025; 86003

== ENCOUNTER 2022-11-23 14:12 | Outpatient (REF) | payer SELFPAY ==
--- NOTE | ~2022-11-23 | MM_ITS ---
EXAMINATION: MM DIAGNOSTIC DIGITAL BREAST TOMOSYNTHESIS, BILATERAL CLINICAL INFORMATION: Six-month follow-up left breast calcifications (fourth follow-up, will establish two-year stability and establish benignity). COMPARISON: Mammography: 11/20/2021, 04/27/2021 and studies dating back to 01/20/2015. TECHNIQUE: Digital breast tomosynthesis is performed in both the craniocaudal and mediolateral oblique views along with computer-aided detection (CAD). Synthesized 2D images are generated from the tomosynthesis. In addition, 2-D spot magnification ML and CC views x2 were performed. FINDINGS: The breasts are extremely dense, which lowers the sensitivity of mammography (ACR BI-RADS breast composition Category d). Calcifications present within the left breast upper outer aspect and centrally appear stable without aggressive change. These appear unchanged from prior exams. There are no suspicious masses or areas of architectural distortion in either breast. The parenchymal pattern is stable from prior exams. MM/MM tomosynthesis diagnostic BI IMPRESSION: No mammographic evidence of malignancy in either breast. Left breast calcifications remain stable without aggressive change. This establishes a two-year stability and establishes benignity. No further follow-up recommended. ASSESSMENT: BI-RADS BI-RADS 2 - Benign Findings RECOMMENDATION: 1 year F/U Results were provided to the patient at time of visit by the technologist. This patient's information was entered into a reminder system with a target due date for their next mammogram.
== END 2022-11-23 14:13 | disposition home or self-care (01) ==
LOC: HO.MAMMO 14:12
PROVIDERS: Visit Provider Internal Medicine
DX: R92.1 Mammographic calcification found on diagnostic imaging of breast (principal)
CPT/HCPCS: 77062; 77066

== ENCOUNTER → 2022-11-23 15:00 | Outpatient (BNV) | payer SELFPAY | PROVIDERS: Visit Provider Radiology Diagnostic Radiology | DX: R92.1 Mammographic calcification found on diagnostic imaging of breast (principal) | CPT/HCPCS: 77062; 77066 ==

== ENCOUNTER 2022-12-27 12:50 | Outpatient (AMB) | payer OTHER, SELFPAY ==
[2022-12-27 13:22] VITALS: BP 122/62; PULSE 63; O2SAT 100
--- NOTE | 2022-12-27 13:22 | MHC.OFFVIS ---
Intake Vital Signs 12/27/22 13:22 BP 122/62 Blood Pressure Location Rt brachial Position Sitting Pulse 63 Pulse Source Pulse Oximeter Pulse Oximetry (%) 100 Oxygen Delivery Method Room Air Intake Visit Reasons: Dupixent teach Allergies aspirin [ASA] Allergy (Intermediate, Verified 12/27/22 13:23) FACIAL SWELLING, swelling baclofen [BACLOFEN] Allergy (Intermediate, Verified 12/27/22 13:23) UNKNOWN, vomiting amitriptyline Allergy (Mild, Verified 12/27/22 13:23) face swelling Medication List - Last Reconciled 12/27/22 by Mimi Flood LPN alendronate 70 mg PO QWEEK 90 days bupropion HCl 150 mg PO QAM 90 days cholecalciferol (vitamin D3) 25 mcg PO DAILY 90 days dupilumab (Dupixent) 300 mg (2 mL) subcut Q2W 28 days qkegnulcmkt-fuelijhyw-pqwifclu 200-62.5-25 mcg (Trelegy Ellipta) 1 inh inhalation DAILY 30 days gabapentin 600 mg PO .four times a day 30 days levothyroxine 100 mcg PO DAILY 90 days loratadine 10 mg PO DAILY 90 days nirmatrelvir-ritonavir 300 mg (150 mg x 2)-100 mg (Paxlovid) 3 ea PO PER PKG DIR 5 days ondansetron HCl 4 mg PO Q8H PRN 7 days pantoprazole 40 mg PO DAILY 90 days tramadol 50 mg PO TID PRN 30 days Ventolin HFA 90 mcg/actuation (albuterol sulfate) 2 puffs inhalation Q4-6H PRN 30 days NS zolpidem 10 mg PO BEDTIME PRN 90 days HPI Dupixent teach HPI Details Leonila is here for a Dupixent teach. Leonila was educated on hand washing, injection preparation, administration, and disposal. She was able to return demonstrate proper technique for hand washing, injection preparation, administration and disposal of needle and states she has no questions at this time. Medication Dupixent 300mg/2mL pre-filled pen (patient?s own meds) Loading dose of 600mg given by the patient in 2 SQ injections; injection #1 R thigh ;? injection #2 L thigh Lot# [id number] expires 10/07/2024. Patient aware her next injection is in 15 days. Nurse visit only.? [facility] Medical History ADD (attention deficit disorder) Asthma Autoimmune thyroiditis Dizziness Leo-Danlos syndrome GERD (gastroesophageal reflux disease) GERD (gastroesophageal reflux disease) Hiatal hernia Hypothyroidism Hypovitaminosis D Insomnia Mild depression Mild persistent asthma MINO (obstructive sleep apnea) Osteopenia Osteoporosis Polyarthralgia Postmenopausal Shortness of breath Skin lesion Syncope and collapse Thyroid nodule Surgical History History of cystocele History of repair of rectocele History of umbilical hernia repair Family History Father CVD (cardiovascular disease) Mother Hypertension Maternal Grandfather CVD (cardiovascular disease) Chronic mental illness Maternal Aunt Thyroid cancer Housing: House Alcohol intake: never Patient Tobacco Use Status: Never used Tobacco e-Cigarette/Vaping Use: Never Used Second Hand Smoke Exposure: No service: No Current occupational status: employed 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 Medications: Refilled xdarnarrxyl-lggjkhjks-msvwrvxo 200-62.5-25 mcg (Trelegy Ellipta) 1 inh inhalation DAILY 30 days 1 ea 6RF Ventolin HFA 90 mcg/actuation (albuterol sulfate) 2 puffs inhalation Q4-6H 30 days PRN 18 grams 6RF shortness of breath or wheezing NS Coding Level of Care Code Established Pt Est Pt Level 1 (57602) Patient Type Established Diagnoses Moderate persistent asthma without complication J45.40 Asthma complication type: uncomplicated Asthma persistence: persistent Asthma severity: moderate Comment NURSE VISIT ONLY
== END 2022-12-27 13:53 | disposition home or self-care (01) ==
PROVIDERS: PCP Internal Medicine; Visit Provider Internal Medicine Pulmonary Disease
DX: J45.40 Moderate persistent asthma, uncomplicated (principal)

== ENCOUNTER → 2022-12-27 12:50 | Outpatient (BNVA) | payer OTHER, SELFPAY | PROVIDERS: PCP Internal Medicine; Visit Provider Internal Medicine Pulmonary Disease | DX: J45.40 Moderate persistent asthma, uncomplicated (principal); Z79.899 Other long term (current) drug therapy; Z71.89 Other specified counseling | CPT/HCPCS: 99211 ==

== ENCOUNTER 2023-04-05 09:21 | Outpatient (AMB) | payer OTHER, SELFPAY ==
[2023-04-05 09:26] VITALS: BP 118/76; BMI 20.8
--- NOTE | 2023-04-05 09:26 | MHC.PC.OV ---
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: No Accompanied by: Self / Same As Patient Allergies aspirin [ASA] Allergy (Intermediate, Verified 04/05/23 09:42) FACIAL SWELLING, swelling baclofen [BACLOFEN] Allergy (Intermediate, Verified 04/05/23 09:42) UNKNOWN, vomiting amitriptyline Allergy (Mild, Verified 04/05/23 09:42) face swelling Medication List - Last Reconciled 04/05/23 by Abby Fuller MD alendronate 70 mg PO QWEEK 90 days bupropion HCl 150 mg PO QAM 90 days cholecalciferol (vitamin D3) 25 mcg PO DAILY 90 days dupilumab (Dupixent) 300 mg (2 mL) subcut Q2W 28 days mvhplbnpcwa-uzoitflku-bnvjvhup 200-62.5-25 mcg (Trelegy Ellipta) 1 inh inhalation DAILY 30 days gabapentin 600 mg PO .four times a day 30 days levothyroxine 100 mcg PO DAILY 90 days loratadine 10 mg PO DAILY 90 days ondansetron HCl 4 mg PO Q8H PRN 7 days pantoprazole 40 mg PO DAILY 90 days tramadol 50 mg PO TID PRN 30 days zolpidem 10 mg PO BEDTIME PRN 90 days Tobacco use date assessed: 04/05/23 Dental Screening Dental Screen Date: 04/05/23 Did you have a dental visit in the last 12 months?: No Did you have a dental problem in the last 6 months where you did not have access to dental care?: No Was dental information given to patient?: Patient has dentist HPI HPI Comments History of Present Illness Details This is a 52-year-old female with mild depression that comes for her physical exam. Depression stable with bupropion. Last mammogram was 2022 and was normal. Last Pap smear was 2018 and will be referred to OBGYN for this matter. Last colonoscopy was 2019 and was normal and next colonoscopy should be 2030. Denies any chest pain or shortness of breath. Complains of diffuse joint pain and has Leo-Danlos and currently does not see a circulation director. Complains of hair loss. [facility] Medical History (Updated 04/05/23 @ 09:59 by Abby Fuller MD) Osteoporosis Skin lesion Hiatal hernia GERD (gastroesophageal reflux disease) Mild depression Insomnia Autoimmune thyroiditis Dizziness Osteopenia Postmenopausal Polyarthralgia ADD (attention deficit disorder) MINO (obstructive sleep apnea) Asthma Mild persistent asthma Syncope and collapse Shortness of breath Thyroid nodule Hypovitaminosis D GERD (gastroesophageal reflux disease) Leo-Danlos syndrome Hypothyroidism Surgical History History of cystocele History of repair of rectocele History of umbilical hernia repair Family History Father CVD (cardiovascular disease) Mother Hypertension Maternal Grandfather CVD (cardiovascular disease) Chronic mental illness Maternal Aunt Thyroid cancer Social History Housing: House Alcohol intake: never Comment: medicated, see MAR Patient Tobacco Use Status: Never used Tobacco e-Cigarette/Vaping Use: Never Used Second Hand Smoke Exposure: No service: No Current occupational status: employed 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 1. Little interest or pleasure in doing things: not at all 2. Feeling down, depressed, or hopeless: several days 3. Trouble falling or staying asleep, or sleeping too much: several days 4. Feeling tired or having little energy: several days 5. Poor appetite or overeating: not at all 6. Feeling bad about yourself - or that you are a failure or have let yourself or your family down: not at all 7. Trouble concentrating on things, such as reading the newspaper or watching television: not at all 8. Moving or speaking so slowly that other people could have noticed. Or the opposite - being so fidgety or restless that you have been moving around a lot more than usual: not at all 9. Thoughts that you would be better off or of hurting yourself in some way: not at all Total score: 3 Depression Screening Interpretation: Positive Depression Screening Follow-up: Existing condition and In treatment Depression Screening Done: Yes 08722 - PHQ-9 Billing: Yes Source: Developed by Drs. Ammon Bautista, Arlet Benjamin, Juancho Ayers and colleagues, with an educational stewart from [employer]. Thrive Questionnaire Date Thrive assessed: 04/05/23 I am a: Patient What is your living situation today?: I have a steady place to live Within the past 12 months, did the food you bought not last and you didn't have the money to get more?: Never true Within the past 12 months, did you worry whether your food would run out before you got money to buy more?: Never true Do you have trouble paying for medicines?: No Do you have trouble getting transportation to medical appointments?: No Do you have trouble paying your heating and electricity bill?: No Do you have trouble taking care of your child, family member or friend?: No Do you have trouble with day-to-day activities such as bathing, preparing meals, shopping, managing finances, etc.?: No Are you currently unemployed and looking for a job?: No Are you interested in more education?: No Please select the resources that you would like help with: None Currently or been in a relationship where the following occur: no concerns reported THRIVE Score: 0 AUDIT C Alcohol Use Questionnaire (AUDIT-C) 1. How often do you have a drink containing alcohol?: Never Total Score: 0 Score Reviewed/Action Taken: No ANNY-7 AMB Questionnaire ANNY-7 Date ANNY - 7 assessed: 04/05/23 Feeling nervous, anxious, or on edge: 1 = Several days Not being able to stop or control worryin = Not at all Worrying too much about different things: 0 = Not at all Trouble relaxin = Not at all Being so restless that it is hard to sit still: 0 = Not at all Becoming easily annoyed or irritable: 0 = Not at all Feeling afraid as if something awful might happen: 0 = Not at all Total ANNY-7 score (0-4 normal; 5-9 mild; 10-14 moderate; 15-21 severe): 1 Source: Developed by Arlet Sequeira Kurt Kroenke and colleagues, with an educational stewart from [employer]. ANNY-7 Assessment Billing ANNY-7 Assessment Tool: ANNY-7 Assessment 70883 Review of Systems Const All systems reviewed & are unremarkable except as noted in HPI and below Eyes Reports no additional complaints, Denies change in vision and Denies other visual disturbances Card Denies chest pain at rest, Denies chest pain with activity, Denies edema, Denies irregular heart rhythm, Denies claudication, Denies dyspnea, Denies dyspnea on exertion, Denies orthopnea, Denies paroxysmal nocturnal dyspnea and Denies slow heart rate Resp Denies cough, Denies dyspnea and Denies dyspnea on exertion GI Denies abdominal pain, Denies change in bowel habits, Denies excessive flatus, Denies nausea and Denies vomiting Denies urinary incontinence, Denies urinary hesitancy and Denies urinary urgency Musc Denies abnormal gait, Denies atrophy, Denies deformity, Reports arthralgias and Denies limited range of motion Skin/Breast Denies bleeding lesions, Denies changing lesions and Denies rash Neuro Denies abnormal gait, Denies behavioral changes, Denies confusion and Denies lack of coordination Psych Denies behavioral changes and Denies confusion Physical exam (Primary Care) Vital Signs: Last Vital Signs BP 118/76 04/05/23 09:26 BMI result Body Mass Index 20.8 Tobacco/Smoking Status: Tobacco use Status Tobacco use date assessed 04/05/23 04/05/23 09:35 Patient Tobacco Use Status Never used Tobacco 04/05/23 09:35 e-Cigarette/Vaping Use Never Used 04/05/23 09:35 PHQ-9: PHQ-9 Score PHQ-9: Total score 3 04/05/23 09:35 Depression Screening Interpretation: Positive Depression Screening Follow-up: Existing condition and In treatment Thrive Assessment: Date of Thrive Assessment Date Thrive assessed 04/05/23 04/05/23 09:35 Currently or been in a relationship where the following occur: no concerns reported Const General: No confusion Orientation/consciousness: patient oriented x3 and No confusion HENMT Head: Yes normal to inspection, Yes normocephalic and Yes atraumatic Ears: external ears normal Eyes General: appearance normal, both eyes and all related structures Eyelids: Yes eyelids normal Conjunctivae: conjunctivae normal Neck Neck: Yes normal visual inspection and Yes supple Resp Effort & Inspection: normal respiratory effort Auscultation: clear to auscultation bilaterally Cardio Jugular venous distension: no JVD Rate: regular rate Rhythm: regular rhythm Heart sounds: S1 normal heart sound present and S2 normal heart sound present GI Inspection: Yes normal to inspection Palpation (GI): Soft to palpation and nontender Auscultation: normal bowel sounds Skin General skin exam: no rashes or lesions noted Neuro General: patient oriented x3, no focal motor deficits and No confusion Extrem General: Yes full ROM Psych Appearance: grossly normal Assessment and Plan Assessment & Plan (1) Physical exam: Code(s): Z00.00 - Encounter for general adult medical examination without abnormal findings Plan: Repeat in a year. (2) Mild depression: Code(s): F32.0 - Major depressive disorder, single episode, mild Plan: Continue bupropion. Orders: Orders Vitamin D 25-OH Total Today E55.9 - Vitamin D deficiency, unspecified XR DEXA axial skeleton Today N95.9 - Unspecified menopausal and perimenopausal disorder Lipid Panel Today E78.5 - Hyperlipidemia, unspecified, Z00.00 - Encounter for general adult medical examination without abnormal findings Celiac Disease Panel Today R10.9 - Unspecified abdominal pain Thyroid Stimulating Hormone Today E06.3 - Autoimmune thyroiditis Comprehensive [place]. Panel Fast Today Z00.00 - Encounter for general adult medical examination without abnormal findings Vitamin B12 and Folate Today E53.8 - Deficiency of other specified B group vitamins Referrals CLINICAL RESEARCH TECH Referral Z12.4 - Encounter for screening for malignant neoplasm of cervix Rheumatology Referral Q79.60 - Leo-Danlos syndrome, unspecified Medications: Refilled ondansetron HCl 4 mg PO Q8H PRN 20 tabs 0RF nausea and vomiting 7 days cholecalciferol (vitamin D3) 25 mcg PO DAILY 90 caps 0RF 90 days pantoprazole 40 mg PO DAILY 90 tabs 1RF 90 days alendronate 70 mg PO QWEEK 13 tabs 3RF 90 days bupropion HCl 150 mg PO QAM 90 tabs 0RF 90 days F32.0 - Major depressive disorder, single episode, mild Coding Level of Care Code Est Pt Prev Care 40-64y(06205) Diagnoses Physical exam Z00.00 Mild depression F32.0 Additional Codes ANNY-7 Assessment Billing - ANNY-7 Assessment Tool: ANNY-7 Assessment 69637 ([id number]) Time Spent (min) 32
== END 2023-04-05 10:00 | disposition home or self-care (01) ==
PROVIDERS: Visit Provider Internal Medicine
DX: Z00.00 Encounter for general adult medical examination without abnormal findings (principal); F32.0 Major depressive disorder, single episode, mild; Q79.60 Ehlers-Danlos syndrome, unspecified
CPT/HCPCS: 99396

== ENCOUNTER 2023-04-16 08:13 | Outpatient (REF) | payer OTHER, SELFPAY ==
[2023-04-16 09:03] LABS: Alanine Aminotransferase 9 U/L (0-31); Albumin Level 4.2 g/dL (3.5-5.0); Alkaline Phosphatase 82 U/L (39-117); Anion Gap 10 (12-20); Aspartate Amino Transferase 15 U/L (5-31); Bilirubin Total 0.4 mg/dL (0.0-1.0); Blood Urea Nitrogen 10 mg/dL (9-16); Calcium 9.4 mg/dL (8.4-10.2); Carbon Dioxide 28 mmol/L (22-29); Chloride 108 mmol/L (96-108); Cholesterol 205 mg/dL (<200); Estimated Glomerular Filt Rate > 60; Glucose Fasting 87 mg/dL (60-99); HDL Cholesterol 60 mg/dL (>40); LDL Cholesterol Calculated 133 mg/dL (<100); Potassium 5.1 mmol/L (3.3-5.1); Sodium 141 mmol/L (135-145); Total Protein 7.5 g/dL (6.5-8.0); Triglycerides 64 mg/dL (<150)
[2023-04-16 09:21] LABS: Thyroid Stimulating Hormone 8.77 uIU/mL (0.32-4.0); Vitamin D 25-OH Total 16.1 ng/mL (>30)
[2023-04-16 09:28] LABS: Folate 7.6 ng/mL (> or = 4.0); Vitamin B12 566 pg/mL (200-900)
[2023-04-18 20:44] LABS: Immunoglobulin A 174 mg/dL (47-310); Transglutaminase IgA <1.0 U/mL
== END 2023-04-16 08:14 | disposition home or self-care (01) ==
LOC: HO.LAB 08:13
PROVIDERS: PCP Internal Medicine; Visit Provider Internal Medicine
DX: R10.9 Unspecified abdominal pain (principal); M81.0 Age-related osteoporosis without current pathological fracture; E53.8 Deficiency of other specified B group vitamins; E06.3 Autoimmune thyroiditis; E55.9 Vitamin D deficiency, unspecified; E78.5 Hyperlipidemia, unspecified
CPT/HCPCS: 36415; 80053; 80061; 82306; 82607; 82746; 82784; 84443; 86364

== ENCOUNTER 2023-04-20 08:31 | Outpatient (REF) | payer OTHER, SELFPAY ==
--- NOTE | ~2023-04-20 | MM_ITS ---
EXAMINATION: BONE DENSITOMETRY CLINICAL INDICATION: Unspecified menopausal and perimenopausal disorder. COMPARISON: Baseline BD dated 10/17/2020. TECHNIQUE: Using a [employer] DXA System (software version: 13.1) manufactured by [employer], dual-energy x-ray absorptiometry was performed of the lumbar spine and left hip. The images are of good technical quality. Summary results are attached. FINDINGS: LEFT FEMUR, NECK: Current: BMD 0.682 g/cm2, Z-score -1.4, T-score -2.6, osteoporosis. Baseline: BMD 0.640 g/cm2. LEFT FEMUR, TOTAL: Current: BMD 0.719 g/cm2, Z-score -1.5, T-score -2.3, osteopenia, 2.6% increase from baseline (<5% change is not significant). Baseline: BMD 0.701 g/cm2. AP SPINE L1-L4: Current: BMD 0.886 g/cm2, Z-score -1.4, T-score -2.4, osteopenia, 8.4% decrease from baseline (<5% change is not significant). Baseline: BMD 0.967 g/cm2. IDENTIFIED RISK FACTORS: Early menopause, secondary osteoporosis, history of fracture, hyperthyroidism, (intestinal or bowel disease, not IBS), low calcium intake, osteoporosis, recurrent falls. HISTORY OF FRACTURE: Other. MEDICATIONS: Bisphosphonate. MM/XR DEXA axial skeleton IMPRESSION: 1. DIAGNOSIS: Osteoporosis based on the lowest T-score value of -2.6 in the femoral neck applying World Health Organization criteria. 2. 10-YEAR FRACTURE RISK PREDICTION, FRAX: According to the guidelines, FRAX calculation should only be performed on patients in the osteopenia bone density category. Therefore, FRAX was not performed on this patient. 3. Treatment Recommendations: NOF guidelines recommend consideration for treatment in postmenopausal women and men age 50 and older presenting with the following: -A hip or vertebral (clinical or morphometric) fracture. -T-score less than or equal to -2.5 at the femoral neck or spine after appropriate evaluation to exclude secondary causes. -Low bone mass at the hip or spine and a 10-year fracture probability by FRAX of greater than or equal to 3% for hip fracture or greater than or equal to 20% for major osteoporotic fracture based on the [place] adapted WHO algorithm. 4. Other Recommendations: All treatment decisions require clinical judgment and consideration of individual patient factors, including patient preferences, comorbidities, previous drug use, risk factors not captured in the FRAX model (e.g. frailty, falls, vitamin D deficiency, increased bone turnover, interval significant decline in bone density) and possible under or overestimation of fracture risk by FRAX. Additional medical evaluation for secondary cause of low bone mineral density may be appropriate. FUTURE SCAN RECOMMENDATION: People with diagnosed cases of osteoporosis or at high risk for fracture should have regular bone mineral density tests. For patients eligible for Medicare, routine testing is allowed once every 2 years. The testing frequency can be increased to one year for patients who have rapidly progressing disease, those who are receiving or discontinuing medical therapy to restore bone mass, or have additional risk factors.
== END 2023-04-20 08:32 | disposition home or self-care (01) ==
LOC: HO.MAMMO 08:31
PROVIDERS: PCP Internal Medicine; Visit Provider Internal Medicine
DX: Z13.820 Encounter for screening for osteoporosis (principal); Z78.0 Asymptomatic menopausal state
CPT/HCPCS: 77080

== ENCOUNTER 2023-05-05 13:46 | Outpatient (REF) | payer OTHER, SELFPAY ==
[2023-05-10 21:14] LABS: HPV mRNA E6/E7 rflx Not Detected (Not Detected)
== END 2023-05-05 13:47 | disposition home or self-care (01) ==
LOC: HO.LNP 13:46
PROVIDERS: PCP Internal Medicine; Visit Provider Advanced Practice Midwife
DX: Z12.4 Encounter for screening for malignant neoplasm of cervix (principal); Z11.51 Encounter for screening for human papillomavirus (HPV)
CPT/HCPCS: 87624; 88142

== ENCOUNTER 2023-05-05 13:46 | Outpatient (AMB) | payer OTHER, SELFPAY ==
[2023-05-05 13:48] VITALS: BP 120/80; BMI 21.1
--- NOTE | 2023-05-05 13:48 | MHC.OFFVIS ---
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: No Information Interpreted: non-clinical & clinical Conciliator: Conciliator Present (Aidyn) Allergies aspirin [ASA] Allergy (Intermediate, Verified 05/05/23 13:50) FACIAL SWELLING, swelling baclofen [BACLOFEN] Allergy (Intermediate, Verified 05/05/23 13:50) UNKNOWN, vomiting amitriptyline Allergy (Mild, Verified 05/05/23 13:50) face swelling Medication List - Last Reconciled 05/05/23 by Elke Chavez CNM alendronate 70 mg PO QWEEK 90 days bupropion HCl 150 mg PO QAM 90 days cholecalciferol (vitamin D3) 25 mcg PO DAILY 90 days dupilumab (Dupixent) 300 mg (2 mL) subcut Q2W 28 days ejsxdnqssoo-lhheaqhhu-jczfippo 200-62.5-25 mcg (Trelegy Ellipta) 1 inh inhalation DAILY 30 days gabapentin 600 mg PO .four times a day 30 days levothyroxine 112 mcg PO DAILY 90 days loratadine 10 mg PO DAILY 90 days ondansetron HCl 4 mg PO Q8H PRN 7 days pantoprazole 40 mg PO DAILY 90 days tramadol 50 mg PO TID PRN 30 days zolpidem 10 mg PO BEDTIME PRN 90 days Is last menstrual period known: No Post menopausal: Yes Patient : No 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 She has not having any digital operations analyst problems at all. She has a history of Leo [place] syndrome and collagen issues she is os to the 0 P Homa and she is on medication for that and is speaking with Rheumatology considering change of medication. She sees her primary care provider. She had a rectocele and cystocele repaired a few years ago at [facility] urogynecology but the rectocele she she feels is back again she would not repeat the surgery as it was difficult she manages constipation with magnesium that she titrates to her needs. She does know that she wants and needs to do more exercise she does not have any STD concerns as she has not been sexually active since previous evaluations prior to her uro Gyne surgery. She thinks she might have had some abnormal Pap smears in the past but they repeated them and they were fine after so she does not think they were a big deal and they were a long time ago. She went through menopause at age 46. 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 [facility] Medical History (Updated 05/05/23 @ 14:36 by Elke Chavez CNM) Osteoporosis Skin lesion Hiatal hernia GERD (gastroesophageal reflux disease) Mild depression Insomnia Autoimmune thyroiditis Dizziness Osteopenia Postmenopausal Polyarthralgia ADD (attention deficit disorder) MINO (obstructive sleep apnea) Asthma Mild persistent asthma Syncope and collapse Shortness of breath Thyroid nodule Hypovitaminosis D GERD (gastroesophageal reflux disease) Leo-Danlos syndrome Hypothyroidism Surgical History (Updated 05/05/23 @ 14:36 by Elke Chavez CNM) History of cystocele History of repair of rectocele History of umbilical hernia repair Family History Father CVD (cardiovascular disease) Mother Hypertension Maternal Grandfather CVD (cardiovascular disease) Chronic mental illness Maternal Aunt Thyroid cancer Social History Housing: House Alcohol intake: never Comment: medicated, see MAR Patient Tobacco Use Status: Never used Tobacco e-Cigarette/Vaping Use: Never Used Second Hand Smoke Exposure: No Patient : No service: No Current occupational status: employed 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 Current occupational exposures/hazards: No Cognitive needs: No Hearing needs: No Vision needs: Yes Female Reproductive History Menstrual Age of Menarche: 11 control method: none Total pregnancies: 3 Full term: 3 Number of Living Children: 3 Date of last pap smear: 11/30/17 (negative) History of abnormal pap smear: Yes (2014 [facility]) Date of Mammogram: 11/23/22 Date of last Bone Density Screenin04/20/23 Physical Exam Vital Signs: Last Vital Signs BP 120/80 05/05/23 13:48 BMI result Body Mass Index 21.1 Const General: healthy appearing, comfortable, no acute distress, well developed and alert Nutritional Appearance: average body habitus Orientation/consciousness: patient oriented x3 Limitations: no limitations HEENT Head: Yes normocephalic Neck Neck: Yes normal visual inspection Chest Chest palpation & inspection: normal inspection of the chest Breast/axilla inspection: normal inspection of the breasts and normal inspection of the axillae Breast/axilla palpation: normal palpation of the breasts and normal palpation of the axillae Resp Effort & Inspection: normal respiratory effort GI Inspection: Yes normal to inspection, No Abdominal wall edema and No distended Palpation (GI): Soft to palpation and nontender Other: Normal speculum exam mild atrophic changes cervix somewhat flattened against posterior vaginal wall. Bled with Pap smear uterus small anteverted mobile nontender scar tissue palpable anteriorly either side of urethra. Rectocele not appreciated today no scar tissue appreciated there fairly good tone with Kegel. General: Yes bladder normal to palpation External Female Exam: normal external appearance and normal appearance of the urethra Speculum Exam - Vagina: normal appearance of the vagina, normal palpation and normal vaginal discharge Speculum Exam - Cervix: normal appearance of the cervix, normal palpation and nontender Bimanual exam- vagina & uterus: normal bimanual exam, normal palpation, uterine size normal, bladder normal to palpation, consistency normal, normal palpation, uterine mobility normal, uterine shape normal, No Cervical tenderness present, non-tender and no cervical motion tenderness Bimanual Exam- Adnexa, other: normal adnexae, no masses, normal and No adnexal tenderness Neuro General: patient oriented x3 Assessment & Plan Assessment & Plan (1) Screening for cervical cancer: Comment: Pap smear done 05/05/2023 Code(s): Z12.4 - Encounter for screening for malignant neoplasm of cervix (2) Osteoporosis: Code(s): M81.0 - Age-related osteoporosis without current pathological fracture (3) Postmenopausal: Code(s): Z78.0 - Asymptomatic menopausal state (4) Leo-Danlos syndrome: Comment: Pain, occ dislocation shoulders, hyper mobile joints, pain, falls, ambulates with walker, GI symptoms Code(s): Q79.60 - Leo-Danlos syndrome, unspecified (5) Hypothyroidism: Code(s): E03.9 - Hypothyroidism, unspecified Qualifiers: Hypothyroidism type: due to Lilian's thyroiditis Qualified Code(s): E03.8 - Other specified hypothyroidism; E06.3 - Autoimmune thyroiditis (6) Well woman exam with routine gynecological exam: Code(s): Z01.419 - Encounter for gynecological examination (general) (routine) without abnormal findings (7) History of cystocele: Comment: repair 09/2018 Code(s): Z87.448 - Personal history of other diseases of urinary system (8) History of repair of rectocele: Comment: 09/2018 Code(s): Z98.890 - Other specified postprocedural states Plan Patient is here for her 1st digital operations analyst exam with this provider. She has not having any digital operations analyst problems at all. She has a history of Leo [place] syndrome and collagen issues she is os to the 0 P [place] and she is on medication for that and is speaking with Rheumatology considering change of medication. She sees her primary care provider. She had a rectocele and cystocele repaired a few years ago at [facility] urogynecology but the rectocele she she feels is back again she would not repeat the surgery as it was difficult she manages constipation with magnesium that she titrates to her needs. She does know that she wants and needs to do more exercise she does not have any STD concerns as she has not been sexually active since previous evaluations prior to her uro Gyne surgery. She thinks she might have had some abnormal Pap smears in the past but they repeated them and they were fine after so she does not think they were a big deal and they were a long time ago. She went through menopause at age 46. 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
== END 2023-05-05 14:41 | disposition home or self-care (01) ==
PROVIDERS: PCP Internal Medicine; Visit Provider Advanced Practice Midwife
DX: Z01.419 Encounter for gynecological examination (general) (routine) without abnormal findings (principal); M81.0 Age-related osteoporosis without current pathological fracture; Q79.60 Ehlers-Danlos syndrome, unspecified; Z78.0 Asymptomatic menopausal state; E03.8 Other specified hypothyroidism; E06.3 Autoimmune thyroiditis; Z87.448 Personal history of other diseases of urinary system; Z98.890 Other specified postprocedural states
CPT/HCPCS: 99396

== ENCOUNTER 2023-07-18 08:50 | Outpatient (AMB) | payer OTHER, SELFPAY ==
[2023-07-18 08:58] VITALS: BP 132/74; PULSE 62; O2SAT 98; BMI 21.1
--- NOTE | 2023-07-18 08:58 | MHC.OFFVIS ---
Vital Signs 07/18/23 08:58 Height 5 ft 5 in Weight 126 lb 12.253 oz BMI 21.1 BP 132/74 Blood Pressure Location Rt brachial Position Sitting Pulse 62 Pulse Source Doppler Pulse Oximetry (%) 98 Oxygen Delivery Method Room Air Intake Visit Reasons: Asthma Allergies aspirin [ASA] Allergy (Intermediate, Verified 07/18/23 09:02) FACIAL SWELLING, swelling baclofen [BACLOFEN] Allergy (Intermediate, Verified 07/18/23 09:02) UNKNOWN, vomiting amitriptyline Allergy (Mild, Verified 07/18/23 09:02) face swelling HPI HPI Asthma: Details: 53-year-old lady, nonsmoker, followed for underlying severe persistent asthma and environmental allergies. Previously well controlled on Xolair, Breo 200, and albuterol MDI.? Her symptoms were no longer controlled on Xolair and at the last office visit she was switched to Dupixent. now she reports significantly improved symptom control. She also continues to use Trelegy and albuterol MDI. She denies recent acute exacerbations. [facility] Medical History (Updated 07/18/23 @ 09:11 by Rodrigo Doll MD) Osteoporosis Skin lesion Hiatal hernia GERD (gastroesophageal reflux disease) Mild depression Insomnia Autoimmune thyroiditis Dizziness Osteopenia Postmenopausal Polyarthralgia ADD (attention deficit disorder) MINO (obstructive sleep apnea) Asthma Mild persistent asthma Syncope and collapse Shortness of breath Thyroid nodule Hypovitaminosis D GERD (gastroesophageal reflux disease) Leo-Danlos syndrome Hypothyroidism Surgical History (Updated 05/05/23 @ 14:36 by Elke Chavez CNM) History of cystocele History of repair of rectocele History of umbilical hernia repair Family History Father CVD (cardiovascular disease) Mother Hypertension Maternal Grandfather CVD (cardiovascular disease) Chronic mental illness Maternal Aunt Thyroid cancer Social History Housing: House Alcohol intake: never Comment: medicated, see MAR Patient Tobacco Use Status: Never used Tobacco e-Cigarette/Vaping Use: Never Used Second Hand Smoke Exposure: No service: No Current occupational status: employed 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 Current occupational exposures/hazards: No Cognitive needs: No Hearing needs: No Vision needs: Yes Female Reproductive History Menstrual Age of Menarche: 11 Review of Systems Const Denies daytime sleepiness, Denies excessive sweating, Denies fatigue, Denies fever(s), Denies lethargy, Denies malaise, Denies night sweats, Denies snoring and Denies weight loss Eyes Denies blurry vision and Denies itchy eyes ENT Denies nasal congestion, Denies post nasal drip, Denies sinus pain, Denies sinus pressure and Denies other ( Thrush) Card Denies chest pain, Denies pedal edema, Denies dyspnea, Denies orthopnea and Denies paroxysmal nocturnal dyspnea Resp Denies cough, Denies hemoptysis, Denies excessive phlegm production, Denies dyspnea, Denies snoring and Denies wheezing GI Denies abdominal pain and Denies heartburn Musc Denies myalgias, Denies arthralgias and Denies joint swelling Skin/Breast Denies rash Neuro Denies memory loss and Denies seizure-like activity Psych Denies abnormal sleep pattern, Denies anxiety and Denies memory loss Endo Denies excessive sweating, Denies fatigue and Denies heat intolerance Tanner/Lymph Denies easy bruising Aller/Immun Denies itchy eyes, Denies seasonal rhinorrhea and Denies wheezing Physical Exam Vital Signs: Last Vital Signs Pulse 62 07/18/23 08:58 BP 132/74 07/18/23 08:58 Pulse Ox 98 07/18/23 08:58 Oxygen Delivery Method Room Air 07/18/23 08:58 BMI result Body Mass Index 21.1 Const General: no acute distress and alert Nutritional Appearance: not obese Orientation/consciousness: Other orientation findings ( oriented) HEENT Head: Yes atraumatic Eyes General: appearance normal, both eyes and all related structures Sclerae: sclerae normal EOM: EOMs intact bilaterally Neck Neck: Yes supple Lymphatic: no lymphadenopathy noted Resp Effort & Inspection: normal respiratory effort and no use of accessory muscles Auscultation: clear to auscultation bilaterally Cardio Rate: regular rate Rhythm: regular rhythm Heart sounds: no gallops, no murmurs and no rubs Skin General skin exam: other ( warm) Extrem General: No clubbing, No cyanosis and No edema Assessment & Plan Assessment & Plan (1) Severe persistent asthma: Code(s): J45.50 - Severe persistent asthma, uncomplicated Category: Medical Plan: Well controlled on Dupixent, Trelegy, and albuterol MDI. Continue current regimen. (2) Environmental allergies: Code(s): Z91.09 - Other allergy status, other than to drugs and biological substances Category: Medical Plan: Well controlled on Dupixent. Continue current regimen. Coding Level of Care Code Est Pt Level 4 (27059) Diagnoses Severe persistent asthma J45.50 Environmental allergies Z91.09
== END 2023-07-18 09:10 | disposition home or self-care (01) ==
PROVIDERS: PCP Internal Medicine; Visit Provider Internal Medicine Pulmonary Disease
DX: J45.50 Severe persistent asthma, uncomplicated (principal); Z91.09 Other allergy status, other than to drugs and biological substances
CPT/HCPCS: 99214

== ENCOUNTER → 2023-07-18 08:50 | Outpatient (BNVA) | payer OTHER, SELFPAY | PROVIDERS: PCP Internal Medicine; Visit Provider Internal Medicine Pulmonary Disease ==

== ENCOUNTER 2023-09-19 08:44 | Outpatient (REF) | payer OTHER, SELFPAY ==
[2023-09-19 10:00] LABS: Alanine Aminotransferase 9 U/L (0-31); Albumin Level 4.3 g/dL (3.5-5.0); Alkaline Phosphatase 71 U/L (39-117); Anion Gap 9 (12-20); Aspartate Amino Transferase 15 U/L (5-31); Bilirubin Total 0.4 mg/dL (0.0-1.0); Blood Urea Nitrogen 12 mg/dL (9-16); Calcium 9.3 mg/dL (8.4-10.2); Carbon Dioxide 30 mmol/L (22-29); Chloride 105 mmol/L (96-108); Cholesterol 198 mg/dL (<200); Estimated Glomerular Filt Rate 58; Glucose Fasting 91 mg/dL (60-99); HDL Cholesterol 53 mg/dL (>40); LDL Cholesterol Calculated 124 mg/dL (<100); Potassium 4.7 mmol/L (3.3-5.1); Sodium 139 mmol/L (135-145); Total Protein 7.4 g/dL (6.5-8.0); Triglycerides 105 mg/dL (<150)
[2023-09-19 10:19] LABS: Thyroid Stimulating Hormone 4.92 uIU/mL (0.32-4.0); Vitamin D 25-OH Total 17.9 ng/mL (>30)
== END 2023-09-19 08:45 | disposition home or self-care (01) ==
LOC: HO.LAB 08:44
PROVIDERS: PCP Internal Medicine; Visit Provider Internal Medicine
DX: Z00.00 Encounter for general adult medical examination without abnormal findings (principal); E78.5 Hyperlipidemia, unspecified; E06.3 Autoimmune thyroiditis; E55.9 Vitamin D deficiency, unspecified
CPT/HCPCS: 36415; 80053; 80061; 82306; 84443

== ENCOUNTER 2023-10-05 09:51 | Outpatient (AMB) | payer OTHER, SELFPAY ==
[2023-10-05 09:55] VITALS: BP 120/72; BMI 20.5
--- NOTE | 2023-10-05 09:55 | A.OFFPC_ITS ---
Vital Signs 10/05/23 09:55 Height 5 ft 5 in Weight 123 lb BMI 20.5 BP 120/72 Blood Pressure Location Lt brachial Position Sitting Intake Visit Reasons: thyroid Intake Note: Patient here for a follow up thyroid Labor Utilization Superintendent Required: No Accompanied by: Self / Same As Patient Allergies aspirin [ASA] Allergy (Intermediate, Verified 10/05/23 10:19) FACIAL SWELLING, swelling baclofen [BACLOFEN] Allergy (Intermediate, Verified 10/05/23 10:19) UNKNOWN, vomiting amitriptyline Allergy (Mild, Verified 10/05/23 10:19) face swelling Medication List - Last Reconciled 10/05/23 by Abby Fuller MD alendronate 70 mg PO QWEEK 90 days bupropion HCl XL 150 mg PO QAM 90 days cholecalciferol (vitamin D3) 25 mcg PO DAILY 90 days dupilumab (Dupixent) 300 mg (2 mL) subcut Q2W 28 days zxgffaklzyo-oyvwqttkb-lokmfvxq 200-62.5-25 mcg (Trelegy Ellipta) 1 inh inhalation DAILY 30 days gabapentin 600 mg PO .four times a day 30 days levothyroxine 112 mcg PO DAILY 90 days loratadine 10 mg PO DAILY 90 days ondansetron HCl 4 mg PO Q8H PRN 7 days pantoprazole 40 mg PO DAILY 90 days tramadol 50 mg PO TID PRN 30 days zolpidem 10 mg PO BEDTIME PRN 90 days Tobacco use date assessed: 04/05/23 Dental Screening Dental Screen Date: 04/05/23 HPI HPI Comments History of Present Illness Details This is a 53-year-old female with autoimmune thyroiditis, GERD, osteoporosis and mild major depression with anxiety that comes today for follow- up on her conditions. She needs a letter that she is traveling to [place] from Oct 19 to saying that she is on controlled substances and needs them. TSH was elevated and I will increase levothyroxine. TSH will be repeated in 6 weeks and patient is aware. GERD still present and would like a 3rd opinion and I will refer her to [facility] in [place]. Rheumatology is following up osteoporosis which wants to place her in [facility] due to side effects of alendronate with GI upset. Depression stable with medications. Has occasional anxiety and will start on lorazepam as needed. Patient aware that can cause addiction, sedation and memory loss. She already has some memory loss. [facility] Medical History (Updated 10/05/23 @ 10:32 by Abby Fuller MD) Osteoporosis Skin lesion Hiatal hernia GERD (gastroesophageal reflux disease) Mild depression Insomnia Autoimmune thyroiditis Dizziness Osteopenia Postmenopausal Polyarthralgia ADD (attention deficit disorder) MINO (obstructive sleep apnea) Asthma Mild persistent asthma Syncope and collapse Shortness of breath Thyroid nodule Hypovitaminosis D GERD (gastroesophageal reflux disease) Leo-Danlos syndrome Hypothyroidism Surgical History History of cystocele History of repair of rectocele History of umbilical hernia repair Family History Father CVD (cardiovascular disease) Mother Hypertension Maternal Grandfather CVD (cardiovascular disease) Chronic mental illness Maternal Aunt Thyroid cancer Social History Housing: House Alcohol intake: never Comment: medicated, see MAR Patient Tobacco Use Status: Never used Tobacco e-Cigarette/Vaping Use: Never Used Second Hand Smoke Exposure: No service: No Current occupational status: employed 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 Ammon Bautista, Arlet Benjamin, Juancho Ayers and colleagues, with an educational stewart from [employer]. Review of Systems Const All systems reviewed & are unremarkable except as noted in HPI and below Card Denies chest pain at rest, Denies chest pain with activity, Denies edema, Denies irregular heart rhythm, Denies claudication, Denies dyspnea, Denies dyspnea on exertion, Denies orthopnea, Denies paroxysmal nocturnal dyspnea and Denies slow heart rate Resp Denies cough, Denies dyspnea and Denies dyspnea on exertion GI Reports abdominal pain, Denies change in bowel habits, Denies excessive flatus, Reports dyspepsia, Reports heartburn, Denies nausea and Denies vomiting Musc Reports back pain and Reports arthralgias Neuro Reports memory loss Psych Reports memory loss Physical exam (Primary Care) Vital Signs: Last Vital Signs BP 120/72 10/05/23 09:55 BMI result Body Mass Index 20.5 Tobacco/Smoking Status: Tobacco use Status Tobacco use date assessed 04/05/23 10/05/23 09:59 Patient Tobacco Use Status Never used Tobacco 10/05/23 09:59 e-Cigarette/Vaping Use Never Used 10/05/23 09:59 Thrive Assessment: Date of Thrive Assessment Date Thrive assessed 04/05/23 10/05/23 09:59 Resp Effort & Inspection: normal respiratory effort Auscultation: clear to auscultation bilaterally Cardio Jugular venous distension: no JVD Rate: regular rate Rhythm: regular rhythm Heart sounds: S1 normal heart sound present and S2 normal heart sound present Extrem General: Yes full ROM Assessment and Plan Assessment & Plan (1) Osteoporosis: Code(s): M81.0 - Age-related osteoporosis without current pathological fracture Plan: Follow-up with rheumatology. (2) Mild depression: Code(s): F32.0 - Major depressive disorder, single episode, mild Plan: Continue bupropion. (3) GERD (gastroesophageal reflux disease): Code(s): K21.9 - Gastro-esophageal reflux disease without esophagitis Plan: Continue PPIs. Follow-up with Gastroenterology. (4) Autoimmune thyroiditis: Code(s): E06.3 - Autoimmune thyroiditis Plan: Increase levothyroxine. Monitor TSH. Orders: Orders Thyroid Stimulating Hormone 6 Weeks E06.3 - Autoimmune thyroiditis PT Evaluation and Treatment Today R42 - Dizziness and giddiness Referrals Gastroenterology Referral K21.9 - Gastro-esophageal reflux disease without esophagitis, K44.9 - Diaphragmatic hernia without obstruction or gangrene, R10.9 - Unspecified abdominal pain Medications: New levothyroxine 125 mcg PO DAILY 90 days 90 tabs 1RF lorazepam 0.5 mg PO DAILY 10 days PRN 10 tabs 0RF anxiety meclizine 25 mg PO BID 5 days PRN 10 tabs 0RF dizziness Discontinued levothyroxine Discontinued Reason: Patient Completed Course 112 mcg PO DAILY 90 days 90 tabs 0RF Coding Level of Care Code Est Pt Level 4 (37815) Complex EM visit Add On G2211 Diagnoses Osteoporosis M81.0 Mild depression F32.0 GERD (gastroesophageal reflux disease) K21.9 Autoimmune thyroiditis E06.3 Time Spent (min) 22
== END 2023-10-05 10:43 | disposition home or self-care (01) ==
PROVIDERS: PCP Internal Medicine; Visit Provider Internal Medicine
DX: M81.0 Age-related osteoporosis without current pathological fracture (principal); F32.0 Major depressive disorder, single episode, mild; K21.9 Gastro-esophageal reflux disease without esophagitis; E06.3 Autoimmune thyroiditis
CPT/HCPCS: 99214; G2211

== ENCOUNTER → 2023-11-29 15:45 | Outpatient (BNV) | payer OTHER, SELFPAY | PROVIDERS: PCP Internal Medicine; Visit Provider Internal Medicine | DX: Z12.31 Encounter for screening mammogram for malignant neoplasm of breast (principal) | CPT/HCPCS: 77063; 77067 ==

== ENCOUNTER 2023-11-29 15:47 | Outpatient (REF) | payer OTHER, SELFPAY ==
--- NOTE | ~2023-11-29 | MM_ITS ---
EXAMINATION: MM SCREENING DIGITAL BREAST TOMOSYNTHESIS, BILATERAL CLINICAL INFORMATION: Screening. Asymptomatic. COMPARISON: Mammography: Comparison is made with available priors TECHNIQUE: Digital breast mammography with tomosynthesis is performed in both the craniocaudal and mediolateral oblique views along with computer-aided detection (CAD). FINDINGS: The breasts are extremely dense, which lowers the sensitivity of mammography (ACR BI-RADS breast composition Category d). There are no significant masses, abnormal calcifications, or other abnormalities. MM/MM tomosynthesis screening BI IMPRESSION: No mammographic evidence of malignancy. ASSESSMENT: BI-RADS BI-RADS 1 - Negative RECOMMENDATION: Routine annual mammography screening. 1 year F/U This examination should not preclude the clinical evaluation of a suspicious palpable abnormality. This patient's information was entered into a reminder system with a target due date for their next mammogram. Electronically signed by: Kiya Harrington DO 12/12/2023 03:49 PM MICHAEL
== END 2023-11-29 15:48 | disposition home or self-care (01) ==
LOC: HO.MAMMO 15:47
PROVIDERS: PCP Internal Medicine; Visit Provider Internal Medicine
DX: Z12.31 Encounter for screening mammogram for malignant neoplasm of breast (principal)
CPT/HCPCS: 77063; 77067

== ENCOUNTER 2024-01-30 12:16 | Outpatient (AMB) | payer OTHER, SELFPAY ==
--- NOTE | 2024-01-30 12:21 | MHC.PC.OV ---
Vital Signs 01/30/24 12:23 Height 5 ft 5 in Weight 119 lb BMI 19.8 BP 120/72 Blood Pressure Location Lt brachial Position Sitting Intake Visit Reasons: 4 mo f/u thyroid, insomnia Intake Note: Patient here for a 4 month follow up Thyroid, Insomnia Document Control Manager Required: No Accompanied by: Self / Same As Patient Allergies aspirin [ASA] Allergy (Intermediate, Verified 01/30/24 12:34) FACIAL SWELLING, swelling baclofen [BACLOFEN] Allergy (Intermediate, Verified 01/30/24 12:34) UNKNOWN, vomiting amitriptyline Allergy (Mild, Verified 01/30/24 12:34) face swelling Medication List - Last Reconciled 01/30/24 by Abby Fuller MD bupropion HCl XL 150 mg PO QAM 90 days dupilumab (Dupixent) 300 mg (2 mL) subcut Q2W 28 days okdxbuwcyml-igujdlflz-hfglhxhn 200-62.5-25 mcg (Trelegy Ellipta) 1 inh inhalation DAILY 30 days gabapentin 600 mg PO .four times a day 30 days levothyroxine 125 mcg PO DAILY 90 days loratadine 10 mg PO DAILY 90 days lorazepam 0.5 mg PO DAILY PRN 10 days meclizine 25 mg PO BID PRN 5 days ondansetron HCl 4 mg PO Q8H PRN 7 days pantoprazole 40 mg PO DAILY 90 days tramadol 50 mg PO TID PRN 30 days zolpidem 10 mg PO BEDTIME PRN 90 days Tobacco use date assessed: 04/05/23 Dental Screening Dental Screen Date: 01/30/24 Did you have a dental visit in the last 12 months?: Yes Did you have a dental problem in the last 6 months where you did not have access to dental care?: No Was dental information given to patient?: Patient has dentist HPI HPI Comments History of Present Illness Details The patient is a 53-year-old female presenting with concerns related to thyroid management. The patient has a history of a thyroid disorder for which she is undergoing treatment. Her thyroid medication dosage was previously increased, and she expresses concerns about lingering symptoms. She describes feeling systemic effects and episodes of emotional distress, without the need to cry. She does have mild major depression that has been stable with bupropion. In addition, she reports fatigue and questions whether this could be related to Vitamin D levels. She also mentions a history of osteoporosis, confirmed by bone densitometry this year, and discussions with a charge authorizer for potential treatment at a hospital in [place]. Concerns related to weight loss and energy levels are noted, potentially linked to thyroid function. The patient also mentions managing gastroesophageal reflux disease by timing her meals early to prevent night-time symptoms. She also has insomnia stable with zolpidem which she is aware can cause addiction and sedation. [facility] Medical History (Updated 01/30/24 @ 13:10 by Abby Fuller MD) Osteoporosis Skin lesion Hiatal hernia GERD (gastroesophageal reflux disease) Mild depression Insomnia Autoimmune thyroiditis Dizziness Osteopenia Postmenopausal Polyarthralgia ADD (attention deficit disorder) MINO (obstructive sleep apnea) Asthma Mild persistent asthma Syncope and collapse Shortness of breath Thyroid nodule Hypovitaminosis D GERD (gastroesophageal reflux disease) Leo-Danlos syndrome Hypothyroidism Surgical History History of cystocele History of repair of rectocele History of umbilical hernia repair Family History Father CVD (cardiovascular disease) Mother Hypertension Maternal Grandfather CVD (cardiovascular disease) Chronic mental illness Maternal Aunt Thyroid cancer Social History Housing: House Alcohol intake: never Comment: medicated, see MAR Patient Tobacco Use Status: Never used Tobacco e-Cigarette/Vaping Use: Never Used Second Hand Smoke Exposure: No service: No Current occupational status: employed 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 How often do you have six or more drinks on one occasion?: Never Total Score: 0 ANNY-7 AMB Questionnaire ANNY-7 Date ANNY - 7 assessed: 04/05/23 Source: Developed by Drs. Ammon Bautista, Arlet Benjamin, Juancho Ayers and colleagues, with an educational stewart from [employer]. Review of Systems Const Details: - General: Reports fatigue. - Musculoskeletal: Reports cold-related discomfort in previously fractured leg. - Gastrointestinal: Reports symptomatic management of GERD. - Neurological: Reports insomnia controlled by zolpidem. Physical exam (Primary Care) Vital Signs: Last Vital Signs BP 120/72 01/30/24 12:23 BMI result Body Mass Index 19.8 Tobacco/Smoking Status: Tobacco use Status Tobacco use date assessed 04/05/23 01/30/24 12:24 Patient Tobacco Use Status Never used Tobacco 01/30/24 12:24 e-Cigarette/Vaping Use Never Used 01/30/24 12:24 Thrive Assessment: Date of Thrive Assessment Date Thrive assessed 04/05/23 01/30/24 12:24 Const Other: General: No confusion Orientation/Consciousness: Patient oriented x3 and No confusion Respiratory: Normal respiratory effort, clear to auscultation bilaterally Cardiovascular: No jugular venous distension, regular rate, regular rhythm, S1 normal heart sound present and S2 normal heart sound present Extremities: Full ROM Office Procedures Flu Questionnaire Does the patient have a severe egg allergy?: No Immunizations Fluarix Triv [id number] (PF) 45 mcg (15 mcg x 3)/0.5 mL IM syringe Performing Provider: Abby Fuller MD [facility] [place] [facility] Documented (not given) by: KEMI Moffett on 01/30/24 12:25 Reason Not Given: Received Previously Coding Level of Care Code Est Pt Level 4 (82187) Complex EM visit Add On G2211 Diagnoses Osteoporosis without current pathological fracture, unspecified osteoporosis type M81.0 Osteoporosis type: unspecified Presence of current pathological fracture: without current pathological fracture Gastroesophageal reflux disease, unspecified whether esophagitis present K21.9 Esophagitis presence: esophagitis presence not specified Mild depression F32.0 Primary insomnia F51.01 Insomnia type: primary Autoimmune thyroiditis E06.3 Time Spent (min) 23 Assessment & Plan Assessment & Plan (1) Osteoporosis: Code(s): M81.0 - Age-related osteoporosis without current pathological fracture Category: Medical Qualifiers: Osteoporosis type: unspecified Presence of current pathological fracture: without current pathological fracture Qualified Code(s): M81.0 - Age-related osteoporosis without current pathological fracture (2) GERD (gastroesophageal reflux disease): Code(s): K21.9 - Gastro-esophageal reflux disease without esophagitis Category: Medical Qualifiers: Esophagitis presence: esophagitis presence not specified Qualified Code(s): K21.9 - Gastro-esophageal reflux disease without esophagitis (3) Mild depression: Code(s): F32.0 - Major depressive disorder, single episode, mild Category: Medical (4) Insomnia: Code(s): G47.00 - Insomnia, unspecified Category: Medical Qualifiers: Insomnia type: primary Qualified Code(s): F51.01 - Primary insomnia (5) Autoimmune thyroiditis: Code(s): E06.3 - Autoimmune thyroiditis Category: Medical Plan - Continue current thyroid medication regimen and reassess dosing at future visits. - Patient to complete recommended laboratory tests, including Vitamin D levels. - Follow up with rheumatology for continued osteoporosis management; patient encouraged to contact the hospital for intake regarding potential injection therapy. - Reinforce management of GERD with lifestyle modifications. - Continue zolpidem for insomnia if currently effective. Patient was informed and verbally consented to the use of an ambient scribe for clinic note documentation during this visit. During the visit, I discussed with the patient her ongoing management plan for her thyroid disorder and the importance of monitoring her symptoms and medication effectiveness. I explained the necessity of checking her Vitamin D levels to address fatigue. I emphasized the need to continue osteoporotic management and reinforced the importance of contacting the hospital for further osteoporosis treatment options. We talked about her current use of zolpidem to control insomnia and the importance of her sleep environment. Additionally, I advised ongoing management strategies for her gastroesophageal reflux disease. Orders: Orders Influenza [id number] Immunization Today Z23 - Encounter for immunization Vitamin D 25-OH Total Today E55.9 - Vitamin D deficiency, unspecified Thyroid Stimulating Hormone Today E06.3 - Autoimmune thyroiditis Patient Instructions: - Continue thyroid medication as prescribed. - Complete lab tests including Vitamin D levels. - Follow up with rheumatology for osteoporosis management. - Contact the hospital for osteoporosis injection therapy intake. - Maintain current GERD dietary modifications. - Continue using zolpidem as needed for sleep. - Follow up as planned in April for physical assessment.
[2024-01-30 12:23] VITALS: BP 120/72; BMI 19.8
== END 2024-01-30 12:45 | disposition home or self-care (01) ==
PROVIDERS: PCP Internal Medicine; Visit Provider Internal Medicine
DX: M81.0 Age-related osteoporosis without current pathological fracture (principal); K21.9 Gastro-esophageal reflux disease without esophagitis; F32.0 Major depressive disorder, single episode, mild; F51.01 Primary insomnia; E06.3 Autoimmune thyroiditis; Z23 Encounter for immunization

== ENCOUNTER → 2024-01-30 12:16 | Outpatient (BNVA) | payer OTHER, SELFPAY | PROVIDERS: PCP Internal Medicine; Visit Provider Internal Medicine | DX: M81.0 Age-related osteoporosis without current pathological fracture (principal); K21.9 Gastro-esophageal reflux disease without esophagitis; F32.0 Major depressive disorder, single episode, mild; F51.01 Primary insomnia; E06.3 Autoimmune thyroiditis; Z28.21 Immunization not carried out because of patient refusal | CPT/HCPCS: 90471 ==

== ENCOUNTER 2024-01-31 09:10 | Outpatient (REF) | payer OTHER, SELFPAY ==
--- OUTSIDE RECORDS SUMMARY | 2024-01-31 09:12 | XMS_ITS | Continuity of Care Document ---
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 Name Role Phone Celestino Herrera MD Unavailable Unavailable Allergies, Adverse Reactions, Alerts Substance Reaction Status Criticality No Known Drug Allergies Active No I nformation Procedures Procedure Date Preven Meds 40-64 Preven Meds 40-64 Screen Pap Obtain Prep Convey 3 Preven Meds 40-64 Preven Meds 40-64 Offic/outpt E&m Estab Mod-hi 2 21 Preven Meds 40-64 Preven Meds 40-64 Preven Meds 40-64 Offic/outpt E&m Estab Mod-hi 2 18 Preven Meds 40-64 Offic/outpt E&m Estab Mod-hi 2 17 Preven Meds 40-64 Offic/outpt E&m Estab Mod-hi 2 16 Offic/outpt E&m Estab Mod-hi 2 16 Preven Meds 40-64 Offic/outpt E&m Estab Mod-hi 2 15 Offic/outpt E&m Estab Mod-hi 2 15 Preven Meds 40-64 Init Preven 40-64 Yrs Results Test Name Date and Time Measure Units Reference Range Abnormal Flag Status Comments Panel Description: Hemoglobi n.gastrointestinal [Presence] in Stool by Immunologic method Final FECAL GLOBIN BY IMMUNOCHEMISTRY 2023 14:09:0 0 SEE COMMENT Final FECAL GLOBIN BY IMMUNOCHEMISTRY Micro Number: [id number] Test Status: Final Specimen Source: Insure () fobt test card Specimen Quality: Adequate Fecal Globin: Not DetectedPerformed by:test companySan Mateo Medical Center [address] [place] [address] Advance Directives Directive Yes / No Effective Date File Name No Information Encounters Encounter Description Practice Location Reason(s) For Visit Diagnoses Date Provider Providers Copied on Encounter [facility], [address], [place], [place], [id number], [place] tel:[phone] [facility] No Information 4 Javier Tirado. [address], [place], [place], [address] , [place]. tel:[phone] [facility] -64 [facility], [address], [place], [place], [id number], [place] tel:[phone] [facility] Wellness (chief complaint)C hronic conditions (chief complaint) Encounter for general adult medical examination without abnormal findingsEncounter for screening for malignant neoplasm of colonBody mass index (BMI) 30.0-30.9, adult 4 Javier Tirado. [address], [address], [place], [place], [address] , [place]. 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 [address], [place], [place], [address] , [place]. [phone] Referring Provider: Immanuel Jc MD, [address], [place], [address] . tel:[phone] [facility] 40-64 [facility], [address], [place], [place], [address], [place] tel:[phone] [facility] Wellness (chief complaint)C hronic conditions (chief complaint) Encounter for general adult medical examination without abnormal findingsEncounter for screening for malignant neoplasm of colonBody mass index (BMI) 33.0-33.9, adult 3 Javier Tirado. [address], [address], [place], [place], [address] , [place]. [phone] [facility] 40-64 [facility], [address], [place], [place], [address], [place] tel:[phone] [facility] Wellness (chief complaint)C hronic conditions (chief complaint) Encounter for general adult medical examination without abnormal findingsDermatitisE ncounter for screening for malignant neoplasm of colonBody mass index (BMI) 38.0-38.9, adult 2 Javier Tirado. [address], [address], [place], [place], [address] , [place]. tel:[phone] Offic/outpt E&m Estab Mod-hi 2 [facility], [address], [place], [place], [address], [place] tel:[phone] [facility] Discuss FOBT (chief complaint)R eview lab results (chief complaint)C hronic conditions (chief complaint) DermatitisEncounter for screening for malignant neoplasm of colon 1 Javier Tirado. [address], [place], [place], [address] , [place]. tel:[phone] [facility] 40-64 [facility], [address], [place], [place], [address], [place] tel:[phone] [facility] Wellness (chief complaint)C hronic conditions (chief complaint) Encounter for general adult medical examination without abnormal findingsEncounter for screening for malignant neoplasm of colonBody mass index (BMI) 40.0-44.9, adult 1 Javier Tirado. [address], [address], [place], [place], [address] , [place]. tel:[phone] [facility] 40-64 [facility], [address], [place], [place], [address], [place] tel:[phone] [facility] Physical (chief complaint)D ry patch right arm/right leg (chief complaint)C hronic conditions (chief complaint) Encounter for general adult medical examination without abnormal findingsDermatitisE ncounter for screening for malignant neoplasm of colonBody mass index (BMI) 39.0-39.9, adult - 0 Javier Tirado. [address], [address], [place], [place], [address] , [place]. tel:[phone] [facility] 4064 [facility], [address], [place], [place], [address], [place] tel:[phone] [facility] wellness (chief complaint)c hronic conditions (chief complaint) Encntr for general adult medical exam w/o abnormal findingsBody mass index (BMI) 36.0-36.9, adult -201 9 Javier Tirado. [address], [address], [place], [place], [address] , [place]. tel:[phone] Offic/outpt E&m Estab Mod-hi 2 [facility], [address], [place], [place], [address], [place] tel:[phone] [facility] left foot toe pain (chief complaint) Pain in left toeEdema 8 Javier Tirado. [address], [place], [place], [address] , [place]. tel: [phone] [facility] 40-64 [facility], [address], [place], [place], [address], [place] tel:[phone] [facility] wellness (chief complaint)c old symptoms (chief complaint) Encntr for general adult medical exam w/o abnormal findingsEncounter for examination for insurance purposesBody mass index (BMI) 34.0-34.9, adultBronchitis 8 Javier Tirado. [address], [address], [place], [place], [address] , [place]. tel: [phone] Offic/outpt E&m Estab Mod-hi 2 [facility], [address], [place], [place], [address], [place] tel:[phone] [facility] diarrhea (chief complaint) Gastroenteritis 7 Javier Tirado. [address], [place], [place], [address] , [place]. tel: [phone] [facility] 40-64 [facility], [address], [place], [place], [address], [place] tel:[phone] [facility] Preventive exam (chief complaint)w ellness (chief complaint) Encounter for general adult medical examination without abnormal findingsBilateral hearing lossBody mass index (BMI) 40.0-44.9, adult 7 Javier Tirado. [address], [address], [place], [place], [address] , [place]. tel: [phone] [facility], [address], [place], [place], [address], [place] tel:[phone] [facility] Encounter for general adult medical examination without abnormal findings 6 Jvaier Tirado. [address], [place], [place], [address] , [place]. tel: [phone] Offic/outpt E&m Estab Mod-pa 2 [facility], [address], [place], [place], [address], [place] tel:[phone] [facility] Follow Up of anxiety (chief complaint)l eave of absence extension (chief complaint) Acute crisis reactionDizziness and giddiness 6 Javier Tirado. [address], [place], [place], [address] , [place]. tel: [phone] Offic/outpt E&m Estab [facility], [address], [place], [place], [address], [place] tel:[phone] [facility] FMLA paperwork (chief complaint) Acute crisis reactionDizziness and giddiness 6 Javeir Tirado. [address], [place], [place], [address] , [place]. tel: [phone] [facility] 40-64 [facility], [address], [place], [place], [address], [place] tel:[phone] [facility] anxiety (chief complaint)w ellness (chief complaint) Encounter for general adult medical examination without abnormal findingsAnxiety 6 Javier Tirado. [address], [place], [place], [address] , [place]. tel:[phone] Offic/outpt E&m Estab [facility], [address], [place], [place], [address], [place] tel:[phone] [facility] review ct scan (chief complaint) Dizziness 5 Javier Tirado. [address], [place], [place], [address] , [place]. tel:[phone] Offic/outpt E&m Estab Mod-hi 2 [facility], [address], [place], [place], [address], [place] tel:[phone] [facility] review labs (chief complaint)d izziness (chief complaint) Dizziness 5 Javier Tirado. [address], [place], [place], [address] , [place]. [phone] Preven Meds 40-64 [facility], [address], [place], [place], [address], [place] tel:[phone] [facility] Dizziness (chief complaint)w ellness (chief complaint) DizzinessRoutine Medical Exam 5 Javier Tirado. [address], [place], [place], [address] , [place]. [phone] Init Preven 40-64 Yrs [facility], [address], [place], [place], [address], [place] tel:[phone] [facility] establish (chief complaint)w ellness exam (chief complaint) Routine Medical Exam 4 Javier Tirado. [address], [place], [place], [address] , [place]. [phone] Family History Family Member Type Diagnosis Age At Onset No Information Payers Payer name Insurance type Covered republican ID Authorenriquea tialva(s) R CI [id number] [facility] [id number] Social History Type Description Quantity Date Captured Comments Sex Female Smoking Status No Information Chief Complaint And Reason For Visit No Information Reason For Referral Reason For Referral No Information Plan Of Treatment Date Type Action Status Goal CT-Colonography. Due on due Goal Unhealthy drug u se screening. Due on due Goal Prevnar 13. Due on 24 due Goal Influenza vaccine. Due on due Goal Pap/HPV testing. Due on due Goal FIT. Due on due Goal Colonoscopy. Due on 024 due Goal FIT-DNA. Due on due Goal Hepatitis C scre ening. Due on due Goal Pap/HPV testing. Due on due Goal Influenza vaccine. Due on due Goal Prevnar 13. Due on 23 due Goal Colonoscopy. Due on 023 due Goal Weight-reducing diet educati on completed Goal Lifestyle education regardin g diet completed Goal Lifestyle education regardin g diet completed Goal Weight-reducing diet educati on completed Goal Lifestyle education regardin g diet completed Referral Ordered: Allan Castillo -Podiatry (related to Pain in left toe) ordered Referral Referred To: Allan Castillo [id number], [phone] Ordered: Referrals: Podiatry. Allan Castillo ordered Referral Ordered: Rad Exam Ft; Ap & Lat Views Left foot ordered Referral Ordered: HELLEN ROMERO -Otolaryngology (related to Bilateral hearing loss) ordered Referral Ordered: MAMMOGRAM BOTH BREASTS ordered Referral Referred To: HELLEN ROMERO [address] [place], [place] [id number] Ordered: Referrals: Otolaryngology. HELLEN ROMERO ordered Referral Ordered: Cat Head/brain; Wo Contrast Ma ordered Patient Education Gastroenteritis: After Your Visit completed Patient Education The Mediterranean Diet: After Your Vis completed Future Order: Lab Order TSH ([id number]), S ent on: Sent Future Order: Lab Order CBC with Diff ([id number]), Sent on: Sent Future Order: Lab Order STOOL OC CULT ([id number]), Sent on: Sent Future Order: Lab Order Nicotine Serum ([id number]), Sent on: Sent Future Order: Lab Order LIPID PA CHAPARRO ([id number]), Sent on: Sent Future Order: Lab Order CMP ([id number]), S ent on: Sent Future Order: Lab Order T4 FREE ([id number]), Sent on: Sent Future Order: Lab Order UA w/ [place] FRONT OFFICE COORDINATOR ([id number]), Sent on: Sent Future Order: Lab Order Nicotine Serum ([id number]), Sent on: Sent Future Order: Lab Order LIPID PA CHAPARRO ([id number]), Sent on: Sent Future Order: Lab Order CMP ([id number]), S ent on: Sent Nutrition Recommendation Nutrition / feed ing management completed Nutrition Recommendation Nutrition / feed ing management completed History Of Present Illness Encounter Date Complaint History Of Prese nt Illness Wellness Discussed health y lifestyle, diet and exercise. Advised not to smoke and limited alcohol intake. Discussed preventative exam schedule and preventative testing frequency. Answered patients questions. Chronic conditions Chronic conditions Preventive exam Her menses is ab sent. Negative for: breast discharge, breast lump(s) and breast pain. Positive for: breast self exam.The patient is not post-menopausal. Negative for Hormone replacement therapy. Menopausal symptoms negative for: vaginal dryness. Pertinent negatives include abnormal bleeding (hematology), abnormal vaginal bleeding and vaginal itching. She does not take calcium. She reports taking a vitamin D supplement daily. She does take multivitamins. She does not take Folic acid. Additional information: last pap 2019 lmp n/a sn . Wellness Discussed health y lifestyle, diet and exercise. Advised not to smoke and limited alcohol intake. Discussed preventative exam schedule and preventative testing frequency. Answered patients questions. Chronic conditions Wellness Discussed health y lifestyle, diet and exercise. Advised not to smoke and limited alcohol intake. Discussed preventative exam schedule and preventative testing frequency. Answered patients questions. Chronic conditions Discuss FOBT reviewed pos fob t , patient feels well. Chronic conditions Review lab results Reviewed labs in room with patient and gave a copy to take home. Wellness Discussed health y lifestyle, diet and exercise. Advised not to smoke and limited alcohol intake. Discussed preventative exam schedule and preventative testing frequency. Answered patients questions. Chronic conditions Physical Discussed health y lifestyle, diet and exercise. Advised not to smoke and limited alcohol intake. Discussed preventative exam schedule and preventative testing frequency. Answered patients questions. Dry patch right arm/right leg ri ght forearm and dry , non painful and no pruritus Chronic conditions wellness Discussed health y lifestyle, diet and exercise. Advised not to smoke and limited alcohol intake. Discussed preventative exam schedule and preventative testing frequency. Answered patients questions. chronic conditions left foot toe pain The symptoms began 3 months ago. intermittent and overall getting worse. No trauma wellness Discussed health y lifestyle, diet and exercise. Advised not to smoke and limited alcohol intake. Discussed preventative exam schedule and preventative testing frequency. Answered patients questions. cold symptoms Onset: 1 day ago . The patient describes the cough as hacking and productive (of green sputum). It occurs persistently. The problem has become gradually worse. Associated symptoms include cough, fatigue, fever and hoarseness. Pertinent negatives include dyspnea, night sweats, sore throat and wheezing. The patient does not have a history of allergies. diarrhea Onset: 2 days ag o. Severity level is: 4. Stool frequency: 2 times a day. The patient describes it as watery. The problem is without change. Symptom is aggravated by any solid food. Associated symptoms include anorexia, change in appetite, nausea and vomiting. Pertinent negatives include abdominal pain, bloating, blood in stool, cramping (abdominal), decreased urine output, distention (abdominal), fever and rash. wellness Discussed health y lifestyle, diet and exercise. Advised not to smoke and limited alcohol intake. Discussed preventative exam schedule and preventative testing frequency. Answered patients questions. Preventive exam Negative for dys menorrhea and menorrhagia. Menopausal symptoms negative for: night sweats. Pertinent negatives include anxiety, depression and vaginal discharge. The patient does not use tobacco. Additional information: Wellness Exam. Follow Up of anxiety Additional information: seeing counselor and slowly improving. Tamara notes needing extention for MATTHEW to return 04/11/2015. leave of absence extension see paul richards. FMLA paperwork FMLA for block capri eaamparo for 1 months and STD [facility] paperwork filled out anxiety Additional infor mation: increased anxiety and emisis with food since 02/17/15 and son passing away. wellness Discussed health y lifestyle, diet and exercise. Advised not to smoke and limited alcohol intake. Discussed preventative exam schedule and preventative testing frequency. Answered patients questions. review ct scan head Ct scan neg ative and monitor. No change in dizziness that has been present now for 2 1/2 months. No new symptoms review labs Reviewed labs in room with patient and gave a copy to take home. dizziness Pertinent negati ves include chest pain, ear drainage, fever, hearing loss, palpitations and vomiting. Additional information: unchanged from previous. Dizziness Onset was 6 week s ago. The problem is worsening. It occurs daily. The patient describes it as (an) imbalance and light-headed. It occurs spontaneously. Denies aggravating factors. Associated symptoms include incoordination. Pertinent negatives include chest pain, diplopia, fever, headache, hearing loss, nausea, neck stiffness, otalgia, vision loss and vomiting. wellness Discussed health y lifestyle, diet and exercise. Advised not to smoke and limited alcohol intake. Discussed preventative exam schedule and preventative testing frequency. Answered patients questions. wellness exam Discussed health y lifestyle, diet and exercise. Advised not to smoke and limited alcohol intake. Discussed preventative exam schedule and preventative testing frequency. Answered patients questions. [facility] Direct Care Functional Status Date Functional Assessmen t No Information Instructions Date Instruction Additional Infor andrew Discussed healthy li festyle and diet and exercise. Related to Encounter for general adult medical examination without abnormal findings Giving encouragement to exercise Related to Body mass index [BMI] 30.0-30.9, adult Discussed healthy li festyle and diet and exercise. Related to Encounter for general adult medical examination without abnormal findings Giving encouragement to exercise Related to Body mass index [BMI] 33.0-33.9, adult Cont same and monito r, currently asymptomatic Related to Dermatitis last pap and mammogr am 2020 nl , Discussed healthy lifestyle and diet and exercise. Related to Encounter for general adult medical examination without abnormal findings Giving encouragement to exercise Related to Body mass index [BMI] 38.0-38.9, adult Weight-reducing diet education R elated to Body mass index [BMI] 38.0-38.9, adult Lifestyle education regarding di et Related to Body mass index [BMI]40.0-44.9, adult Giving encouragement to exercise Related to Body mass index [BMI]40.0-44.9, adult try tmc .1 % Related to [place] titis Giving encouragement to exercise Related to Body mass index (BMI) 39.0-39.9, adult Lifestyle education regarding di et Related to Body mass index (BMI) 39.0-39.9, adult last pap and mammogram 2017 nl R elated to Encntr for general adult medical exam w/o abnormal findings Giving encouragement to exercise Related to Body mass index (BMI) 36.0-36.9, adult Weight-reducing diet education R elated to Body mass index (BMI) 36.0-36.9, adult Discussed healthy li festyle and diet and exercise. last pap and mammogram 2016 nl Related to Encntr for general adult medical exam w/o abnormal findings Giving encouragement to exercise Related to Body mass index (BMI) 34.0-34.9, adult Lifestyle education regarding di et Related to Body mass index (BMI) 34.0-34.9, adult rx , rest and fluids. see handou t Related to Gastroenteritis gave info for non [facility]. Related to Body mass index (BMI) 40.0-44.9, adult Discussed healthy li festyle and diet and exercise. last pap 2014 and last mammogram years ago. plannig to see Dr Unger this year for pap Related to Encounter for general adult medical examination without abnormal findings Prescribed activity/ exercise education Related to Body mass index (BMI) 40.0-44.9, adult Weight loss from baseline weight Related to Body mass index (BMI) 40.0-44.9, adult stable and due to 31 Related to Dizziness and giddiness pending meeting with [facility] and FMLA and STD Paperwork filled out. Related to Acute crisis reaction try promethazine 25 qhs for nausea and sleep for the next 2-4 weeks. Suggest grief counseling at [facility] Related to Anxiety Discussed healthy li festyle and diet and exercise. Related to Encounter for general adult medical examination without abnormal findings continued intermitte nt symptoms and labs neg and head Ct neg , sugggested see Ent but patient wishes to wait and monitor. Related to Dizziness still symptolmatic a nd labs look fine , Check head Ct non contrast Related to Dizziness Check labs and push po fluids. R elated to Dizziness Discussed healthy li festyle and diet and exercise. Last Pap 01/2014 , planning mammogram this year Related to Routine Medical Exam Assessments Type Assessment Date No Information Patient Care Teams Name Effective Dates (start - stop) Status Members No Information
[2024-01-31 12:07] LABS: Thyroid Stimulating Hormone 0.02 uIU/mL (0.32-4.0)
== END 2024-01-31 09:11 | disposition home or self-care (01) ==
LOC: HO.LAB 09:10
PROVIDERS: PCP Internal Medicine; Visit Provider Internal Medicine
DX: E06.3 Autoimmune thyroiditis (principal); E55.9 Vitamin D deficiency, unspecified
CPT/HCPCS: 36415; 82306; 84443

== ENCOUNTER 2024-04-19 08:25 | Outpatient (REF) | payer OTHER, SELFPAY ==
--- OUTSIDE RECORDS SUMMARY | 2024-04-19 08:55 | XMS_ITS | Clinical Summary ---
Author Organization [facility] Address [address] [place] [address] Care Team Providers Care Glassie Name Role Phone Unavailable Primary Care Provider Unavailabl e Social History Tobacco Use Types Packs/Day Years Used Date Smoking Tobacco: Never Assessed Comments Unknown Sex and Gender Information Value Date Recorded Sex Assigned at Not on file Legal Sex Female 4:51 AM EST Gender Identity Not on file Sexual Orientation Not on file Plan of Treatment Health Maintenance Due Date Last Done Comments Breast Cancer Screening 1968 DTaP,Tdap,and Td Vaccines (1 - Tdap) 06/17/1987 Hepatitis B Vaccines (1 of 3 - 19+ 3-dose series) 06/17/1987 Cervical Cancer Screening: P ap Smear 1989 Pneumococcal Vaccine: 50+ Ye ars (1 of 1 - PCV) 2018 Zoster Vaccines (1 of 2) 2018 Colorectal Cancer Screening: Colonoscopy 01/10/2022 Depression Screening 01/10/2022 HIV Screening 01/10/2022 Hepatitis C Screening 01/10/2022 Social Influencers of Health Screening 01/10/2022 COVID-19 Vaccine ( - 2023-2 5 season) 2023 Influenza Vaccine (#1) 2023 HIB Vaccines Aged Out No longer eligi ble based on patient's age to complete this topic HPV Vaccines Aged Out No longer eligi ble based on patient's age to complete this topic Hepatitis A Vaccines Aged Out No long er eligible based on patient's age to complete this topic IPV Vaccines Aged Out No longer eligi ble based on patient's age to complete this topic MMR Vaccines Aged Out No longer eligi ble based on patient's age to complete this topic Meningococcal ACWY Vaccine Aged Out N o longer eligible based on patient's age to complete this topic Meningococcal B Vacine Aged Out No lo nger eligible based on patient's age to complete this topic Pneumococcal Vaccine: Pediat rics (0 to 5 Years) and At-Risk Patients (6 to 64 Years) Aged Out No longer eligible b ased on patient's age to complete this topic RSV Immunization Patients Un kasey 20 months Aged Out No longer eligible b ased on patient's age to complete this topic Varicella Vaccines Aged Out No longer eligible based on patient's age to complete this topic
[2024-04-19 10:22] LABS: Thyroid Stimulating Hormone 0.34 uIU/mL (0.32-4.0)
== END 2024-04-19 08:26 | disposition home or self-care (01) ==
LOC: HO.LAB 08:25
PROVIDERS: PCP Internal Medicine; Visit Provider Internal Medicine
DX: E06.3 Autoimmune thyroiditis (principal)
CPT/HCPCS: 36415; 84443

== ENCOUNTER 2024-05-09 14:41 | Outpatient (AMB) | payer OTHER, SELFPAY ==
--- NOTE | 2024-05-09 15:03 | A.OFFVIS_ITS ---
Intake Vital Signs 05/09/24 15:05 Height 5 ft 5 in Weight 53.07 kg BMI 19.5 Intake Visit Reasons: SWV [id number] Intake Note: Patient here for a subsequent annual wellness visit Pediatric Psychiatrist Required: No Accompanied by: Self / Same As Patient Allergies aspirin [ASA] Allergy (Intermediate, Verified 05/09/24 15:05) FACIAL SWELLING, swelling baclofen [BACLOFEN] Allergy (Intermediate, Verified 05/09/24 15:05) UNKNOWN, vomiting amitriptyline Allergy (Mild, Verified 05/09/24 15:05) face swelling [facility] Medical History (Updated 04/12/24 @ 13:13 by Abigail Crenshaw PA-C) Osteoporosis Skin lesion Hiatal hernia GERD (gastroesophageal reflux disease) Mild depression Insomnia Autoimmune thyroiditis Dizziness Osteopenia Postmenopausal Polyarthralgia ADD (attention deficit disorder) MINO (obstructive sleep apnea) Asthma Mild persistent asthma Syncope and collapse Shortness of breath Thyroid nodule Hypovitaminosis D GERD (gastroesophageal reflux disease) Leo-Danlos syndrome Hypothyroidism Surgical History History of cystocele History of repair of rectocele History of umbilical hernia repair Family History Father CVD (cardiovascular disease) Mother Hypertension Maternal Grandfather CVD (cardiovascular disease) Chronic mental illness Maternal Aunt Thyroid cancer Social History Housing: House Alcohol intake: never Comment: medicated, see MAR Patient Tobacco Use Status: Never used Tobacco e-Cigarette/Vaping Use: Never Used Second Hand Smoke Exposure: No service: No Current occupational status: employed 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 How often do you have a drink containing alcohol?: Never Total Score: 0 ANNY-7 AMB Questionnaire ANNY-7 Date ANNY - 7 assessed: 05/09/24 Feeling nervous, anxious, or on edge: 1 = Several days Not being able to stop or control worryin = Not at all Worrying too much about different things: 0 = Not at all Trouble relaxin = Not at all Being so restless that it is hard to sit still: 0 = Not at all Becoming easily annoyed or irritable: 0 = Not at all Feeling afraid as if something awful might happen: 0 = Not at all Total ANNY-7 score (0-4 normal; 5-9 mild; 10-14 moderate; 15-21 severe): 1 Source: Developed by Drs. Ammon Bautista, Arlet Benjamin, Juancho Ayers and colleagues, with an educational stewart from [employer]. Thrive Questionnaire Date Thrive assessed: 04/05/23 Coding
[2024-05-09 15:05] VITALS: BP 136/80; BMI 19.5
--- NOTE | 2024-05-09 15:15 | A.OFFPC_ITS ---
Vital Signs 05/09/24 15:05 Height 5 ft 5 in Weight 117 lb BMI 19.5 BP 136/80 Blood Pressure Location Lt brachial Position Sitting Intake Visit Reasons: Physical exam, annual Assistant Superintendent Required: No Accompanied by: Self / Same As Patient Allergies aspirin [ASA] Allergy (Intermediate, Verified 05/09/24 15:05) FACIAL SWELLING, swelling baclofen [BACLOFEN] Allergy (Intermediate, Verified 05/09/24 15:05) UNKNOWN, vomiting amitriptyline Allergy (Mild, Verified 05/09/24 15:05) face swelling Tobacco use date assessed: 05/09/24 Dental Screening Dental Screen Date: 05/09/24 Did you have a dental visit in the last 12 months?: Yes Did you have a dental problem in the last 6 months where you did not have access to dental care?: No Was dental information given to patient?: Patient has dentist HPI HPI Comments History of Present Illness Details The patient is a 53-year-old female presenting for her physical exam with dizziness and nausea. The dizziness has persisted for several weeks and has worsened over the past month and a half. It is notably exacerbated by positional changes, making everyday tasks challenging. Previous treatment with meclizine was ineffective, and episodes of dizziness have been associated with elevated blood pressure during postural changes. She experiences accompanying nausea and occasional vomiting, significantly impairing her daily functioning. Major depression stable with bupropion. She has a history of osteoporosis, with attempts to manage this condition with Prolia injections, currently undergoing delays due to administrative challenges with her health plan. The patient also has allergies to aspirin and amitriptyline, both causing facial swelling. She is currently on levothyroxine, with prior thyroid evaluations indicating stability. - Colonoscopy done in 2019 - Tetanus vaccine administered in 2016; next dose due in 2026 - Mammography performed last year (aroun d November) - Bone densitometry scheduled for 2025 - Prolia injections for osteoporosis man agement discussed, pending medical plan resolution [facility] Medical History (Updated 05/09/24 @ 15:55 by Abby Fuller MD) Osteoporosis Skin lesion Hiatal hernia GERD (gastroesophageal reflux disease) Mild depression Insomnia Autoimmune thyroiditis Dizziness Osteopenia Postmenopausal Polyarthralgia ADD (attention deficit disorder) MINO (obstructive sleep apnea) Asthma Mild persistent asthma Syncope and collapse Shortness of breath Thyroid nodule Hypovitaminosis D GERD (gastroesophageal reflux disease) Leo-Danlos syndrome Hypothyroidism Surgical History History of cystocele History of repair of rectocele History of umbilical hernia repair Family History (Updated 05/09/24 @ 15:35 by Abby Fuller MD) Father CVD (cardiovascular disease) Mother Hypertension CVD (cardiovascular disease) Osteoporosis PMR (polymyalgia rheumatica) Maternal Grandfather CVD (cardiovascular disease) Chronic mental illness Maternal Aunt Thyroid cancer Son Leo-Danlos disease Social History Housing: House Alcohol intake: never Comment: medicated, see MAR Patient Tobacco Use Status: Never used Tobacco e-Cigarette/Vaping Use: Never Used Second Hand Smoke Exposure: No service: No Current occupational status: employed 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 1. Little interest or pleasure in doing things: not at all 2. Feeling down, depressed, or hopeless: several days 3. Trouble falling or staying asleep, or sleeping too much: nearly every day 4. Feeling tired or having little energy: nearly every day 5. Poor appetite or overeating: not at all 6. Feeling bad about yourself - or that you are a failure or have let yourself or your family down: not at all 7. Trouble concentrating on things, such as reading the newspaper or watching television: more than half the days 8. Moving or speaking so slowly that other people could have noticed. Or the opposite - being so fidgety or restless that you have been moving around a lot more than usual: more than half the days 9. Thoughts that you would be better off or of hurting yourself in some way: not at all Total score: 11 Depression Screening Interpretation: Positive Depression Screening Follow-up: Existing condition, In treatment and Follow-up Visit Requested Depression Screening Done: Yes 69277 - PHQ-9 Billing: Yes Source: Developed by Drs. Ammon Bautista, Arlet B.WJuancho Mike and colleagues, with an educational stewart from [employer]. Thrive Questionnaire Date Thrive assessed: 05/09/24 I am a: Patient What is your living situation today?: I have a steady place to live Within the past 12 months, did the food you bought not last and you didn't have the money to get more?: Never true Within the past 12 months, did you worry whether your food would run out before you got money to buy more?: Never true Do you have trouble paying for medicines?: No Do you have trouble getting transportation to medical appointments?: No Do you have trouble paying your heating and electricity bill?: No Do you have trouble taking care of your child, family member or friend?: No Do you have trouble with day-to-day activities such as bathing, preparing meals, shopping, managing finances, etc.?: No Are you currently unemployed and looking for a job?: No Are you interested in more education?: No Please select the resources that you would like help with: None Currently or been in a relationship where the following occur: No concerns reported THRIVE Score: 0 AUDIT C Alcohol Use Questionnaire (AUDIT-C) 1. How often do you have a drink containing alcohol?: Never Total Score: 0 Score Reviewed/Action Taken: No ANNY-7 AMB Questionnaire ANNY-7 Date ANNY - 7 assessed: 05/09/24 Feeling nervous, anxious, or on edge: 1 = Several days Not being able to stop or control worryin = Not at all Worrying too much about different things: 1 = Several days Trouble relaxin = Not at all Being so restless that it is hard to sit still: 0 = Not at all Becoming easily annoyed or irritable: 1 = Several days Feeling afraid as if something awful might happen: 0 = Not at all Total ANNY-7 score (0-4 normal; 5-9 mild; 10-14 moderate; 15-21 severe): 3 Source: Developed by Drs. Ammon Bautista, Juancho Titus and colleagues, with an educational stewart from [employer]. ANNY-7 Assessment Billing ANNY-7 Assessment Tool: ANNY-7 Assessment 03424 Review of Systems Const All systems reviewed & are unremarkable except as noted in HPI and below ENT Reports vertigo Card Denies chest pain at rest, Denies chest pain with activity, Denies edema, Denies irregular heart rhythm, Denies claudication, Denies dyspnea, Denies dyspnea on exertion, Denies orthopnea, Denies paroxysmal nocturnal dyspnea and Denies slow heart rate Resp Denies cough, Denies dyspnea and Denies dyspnea on exertion GI Denies abdominal pain, Denies change in bowel habits, Denies excessive flatus, Denies nausea and Denies vomiting Neuro Reports vertigo Physical exam (Primary Care) Vital Signs: Last Vital Signs BP 136/80 05/09/24 15:05 BMI result Body Mass Index 19.5 Tobacco/Smoking Status: Tobacco use Status Tobacco use date assessed 05/09/24 05/09/24 15:18 Patient Tobacco Use Status Never used Tobacco 05/09/24 15:18 e-Cigarette/Vaping Use Never Used 05/09/24 15:18 PHQ-9: PHQ-9 Score PHQ-9: Total score 11 05/09/24 15:18 Depression Screening Interpretation: Positive Depression Screening Follow-up: Existing condition, In treatment and Follow-up Visit Requested Thrive Assessment: Date of Thrive Assessment Date Thrive assessed 05/09/24 05/09/24 15:18 Currently or been in a relationship where the following occur: No concerns reported [facility] Head: Yes normal to inspection, Yes normocephalic and Yes atraumatic Ears: external ears normal Eyes General: appearance normal, both eyes and all related structures Eyelids: Yes eyelids normal Conjunctivae: conjunctivae normal Neck Neck: Yes normal visual inspection and Yes supple Resp Effort & Inspection: normal respiratory effort Auscultation: clear to auscultation bilaterally Cardio Jugular venous distension: no JVD Rate: regular rate Rhythm: regular rhythm Heart sounds: S1 normal heart sound present and S2 normal heart sound present GI Inspection: Yes normal to inspection Palpation (GI): Soft to palpation and nontender Auscultation: normal bowel sounds Skin General skin exam: no rashes or lesions noted Neuro General: no focal motor deficits Romberg Test: Negative Extrem General: Yes full ROM Psych Appearance: grossly normal Coding Level of Care Code Est Pt Level 4 (56564) Est Pt Prev Care 40-64y(99288) Diagnoses Physical exam Z00.00 Mild depression F32.0 BPPV (benign paroxysmal positional vertigo) H81.10 Palpitations R00.2 Near syncope R55 Additional Codes PHQ-9 - 25730 - PHQ-9 Billing: Yes ([id number]) ANNY-7 Assessment Billing - ANNY-7 Assessment Tool: ANNY-7 Assessment 17332 ([id number]) Time Spent (min) 40 Assessment & Plan Assessment & Plan (1) Physical exam: Code(s): Z00.00 - Encounter for general adult medical examination without abnormal findings Category: Medical (2) Mild depression: Code(s): F32.0 - Major depressive disorder, single episode, mild Category: Medical (3) BPPV (benign paroxysmal positional vertigo): Code(s): H81.10 - Benign paroxysmal vertigo, unspecified ear Category: Medical (4) Palpitations: Code(s): R00.2 - Palpitations Category: Medical (5) Near syncope: Code(s): R55 - Syncope and collapse Category: Medical Plan The recommended treatment includes the occasional use of meclizine for dizziness, reserving it for significant episodes. Imaging of the head is planned to exclude other causes of dizziness and unrefuted vestibular abnormalities. Osteoporosis management will continue under existing treatment until Prolia injections resume, with a household worker consult underway to navigate insurance barriers. Her stable thyroid function will remain observant unless symptomatic deviations arise. Patient was informed and verbally consented to the use of an ambient scribe for clinic note documentation during this visit. During our discussion, I explained the plan to tackle her dizziness starting with possible retry of meclizine, educating her about its symptomatic management capability. Imaging was recommended to confirm or negate additional concerns relating to neural or vestibular areas. I acknowledged her difficulty in obtaining osteoporosis medication due to insurance complications, ensuring continued inquiry into alternatives. Her case review covered exclusions of noted allergies and reassured of thyroid adequacy. Additional head imaging and carotid evaluation were emphasized to elucidate further and eliminate vascular sufficiency issues contributing to her symptoms. Orders: Orders MR head/brain wo con Today R42 - Dizziness and giddiness, R51.9 - Headache, unspecified, R55 - Syncope and collapse ECG 12 lead EKG Today R00.2 - Palpitations, R55 - Syncope and collapse US carotid duplex BI Today R09.89 - Other specified symptoms and signs involving the circulatory and respiratory systems, R55 - Syncope and collapse Comprehensive [place]. Panel Fast Today R55 - Syncope and collapse Complete Blood Count Auto Diff Today R55 - Syncope and collapse Vitamin D 25-OH Total Today E55.9 - Vitamin D deficiency, unspecified CA echo transthoracic complete Today R01.1 - Cardiac murmur, unspecified, R55 - Syncope and collapse Lipid Panel Today Z00.00 - Encounter for general adult medical examination without abnormal findings Medications: Refilled meclizine 25 mg PO BID 5 days PRN 10 tabs 0RF dizziness Patient Instructions: - Use meclizine IF dizziness occurs and observe symptom response - Schedule head imaging evaluation to assess conditions beyond vertigo - Maintain consistency with osteoporosis management while awaiting Prolia administration - Monitor intensities of dizziness and any cardiovascular symptoms; seek immediate care if symptoms worsen drastically - Ensure sufficient hydration - Schedule follow-ups for further evaluation of blood pressure response to physiological stresses
--- OUTSIDE RECORDS SUMMARY | 2024-05-09 17:18 | XMS_ITS | Clinical Summary ---
Author Organization [facility] Address [address] [place] [address] Care Team Providers Care Chief Librarian Work With Blind Name Role Phone Unavailable Primary Care Provider [...]
== END 2024-05-09 15:52 | disposition home or self-care (01) ==
PROVIDERS: PCP Internal Medicine; Visit Provider Internal Medicine
DX: Z00.00 Encounter for general adult medical examination without abnormal findings (principal); H81.10 Benign paroxysmal vertigo, unspecified ear; F32.0 Major depressive disorder, single episode, mild; R00.2 Palpitations; R55 Syncope and collapse

== ENCOUNTER → 2024-05-09 14:41 | Outpatient (BNVA) | payer OTHER, SELFPAY | PROVIDERS: PCP Internal Medicine; Visit Provider Internal Medicine | DX: Z00.00 Encounter for general adult medical examination without abnormal findings (principal); F32.0 Major depressive disorder, single episode, mild; H81.10 Benign paroxysmal vertigo, unspecified ear; R00.2 Palpitations; R55 Syncope and collapse; M81.0 Age-related osteoporosis without current pathological fracture | CPT/HCPCS: 96127 ==

== ENCOUNTER 2024-05-21 18:28 | Outpatient (REF) | payer OTHER, SELFPAY ==
--- NOTE | ~2024-05-21 | MR_ITS ---
CLINICAL HISTORY: Vertigo, persistent HAPt was confused, stated she had 1 episode of vertigo and pass ed out witnessed by her daughter, no hospital visit, stated her dizziness is constant, gets worse ac etimes MR Brain without gadolinium Comparison: None Findings: No restricted diffusion. No intra-axial mass or hemorrhage. No midline shift. No hydrocephalus. Vascular flow voids are intact. Orbital contents are unremarkable. The sinuses and mastoid air cells are clear. No focal bone lesion. IMPRESSION: Unremarkable brain MRI. This document has been electronically signed by: Bill Chavez MD on 05/21/2024 20:01:39
--- OUTSIDE RECORDS SUMMARY | 2024-05-21 18:44 | XMS_ITS | Clinical Summary ---
Author Organization [facility] Address [address] [place] [address] Care Team Providers Care Ticket Taker Ferryboat Name Role Phone Unavailable Primary Care Provider [...] 2) 2018 Colorectal Cancer Screening: Colonoscopy 01/10/2022 HIV Screening 01/10/2022 COVID-19 Vaccine ( - 2023-2 5 season) 2023 Influenza Vaccine (Season Ended) 2024 HIB Vaccines Aged Out No longer eligi [...] age to complete this topic Meningococcal B Vaccine Aged Out No l onger eligible based on patient's age to complete [...]
== END 2024-05-21 18:29 | disposition home or self-care (01) ==
LOC: HO.MRI 18:28
PROVIDERS: PCP Internal Medicine; Visit Provider Internal Medicine
DX: R42 Dizziness and giddiness (principal); R51.9 Headache, unspecified; R55 Syncope and collapse
CPT/HCPCS: 70551

== ENCOUNTER → 2024-05-21 18:39 | Outpatient (BNV) | payer OTHER, SELFPAY | PROVIDERS: PCP Internal Medicine; Visit Provider Student in an Organized Health Care Education/Training Program | DX: R42 Dizziness and giddiness (principal) | CPT/HCPCS: 70551 ==

== ENCOUNTER 2024-05-29 09:14 | Outpatient (REF) | payer OTHER, SELFPAY ==
[2024-05-29 09:40] LABS: MANUAL DIFF FLAG NO
--- OUTSIDE RECORDS SUMMARY | 2024-05-29 09:59 | XMS_ITS | Clinical Summary ---
Author Organization [facility] Address [address] [place] [address] Care Team Providers Care Mud Mixer Operator Name Role Phone Unavailable Primary Care Provider [...]
[2024-05-29 10:08] LABS: Basophils Percent Auto 0.9 % (0-2); Eosinophils Absolute Auto 0.1 X10*3/uL (0.0-0.4); Eosinophils Percent Auto 1.7 % (0-4); Hemoglobin 12.4 g/dl (12.0-16.0); Imm Gran Abs Auto 0.01 X10*3/uL (0.00-0.03); Imm Gran Pct Auto 0.2 % (0.0-0.4); Lymphocytes Absolute Auto 1.8 X10*3/uL (1.2-4.9); Lymphocytes Percent Auto 43.4 % (20-40); Mean Corpuscular HGB Conc 32.6 g/dl (31.0-35.0); Mean Corpuscular Hemoglobin 30.2 pg (27.0-33.0); Mean Corpuscular Volume 92.7 fL (80.0-98.0); Mean Platelet Volume 10.3 fL (9.4-12.3); Monocytes Absolute Auto 0.3 X10*3/uL (0.1-1.2); Monocytes Percent Auto 6.6 % (2-11); Neutrophils Percent Auto 47.2 % (45-73); Platelet Count 217 X10*3/uL (160-400); Red Cell Distribution Width 12.4 % (11.0-16.0); White Blood Count 4.2 X10*3/uL (4.8-10.8)
[2024-05-29 10:31] LABS: Alanine Aminotransferase 14 U/L (0-31); Albumin Level 4.4 g/dL (3.5-5.0); Alkaline Phosphatase 71 U/L (39-117); Anion Gap 9 (12-20); Aspartate Amino Transferase 22 U/L (5-31); Bilirubin Total 0.5 mg/dL (0.0-1.0); Blood Urea Nitrogen 14 mg/dL (9-16); Calcium 9.4 mg/dL (8.4-10.2); Carbon Dioxide 27 mmol/L (22-29); Chloride 107 mmol/L (96-108); Cholesterol 195 mg/dL (<200); Estimated Glomerular Filt Rate > 60; Glucose Fasting 97 mg/dL (60-99); HDL Cholesterol 60 mg/dL (>40); LDL Cholesterol Calculated 119 mg/dL (<100); Potassium 5.4 mmol/L (3.3-5.1); Sodium 138 mmol/L (135-145); Total Protein 7.2 g/dL (6.5-8.0); Triglycerides 82 mg/dL (<150)
[2024-05-29 10:48] LABS: Thyroid Stimulating Hormone 5.37 uIU/mL (0.32-4.0); Vitamin D 25-OH Total 23.9 ng/mL (>30)
== END 2024-05-29 09:15 | disposition home or self-care (01) ==
LOC: HO.LAB 09:14
PROVIDERS: PCP Internal Medicine; Visit Provider Internal Medicine
DX: Z00.00 Encounter for general adult medical examination without abnormal findings (principal); R55 Syncope and collapse; E55.9 Vitamin D deficiency, unspecified; E06.3 Autoimmune thyroiditis
CPT/HCPCS: 36415; 80053; 80061; 82306; 84443; 85025

== ENCOUNTER 2024-06-11 08:08 | Outpatient (RCR) | payer OTHER, SELFPAY ==
[2024-05-02 08:45] VITALS: BP 139/67; PULSE 62
--- NOTE | 2024-05-02 15:51 | MHC.PT.EP ---
[facility] [place] Office [place] Office [place] Office [address] Irwin Honeycutt [address] [phone] F: [phone] F: [phone] F: [phone] F: [phone] Physical Therapy Plan of Care Date of Evaluation: 05/02/24 Date of Surgery: Diagnosis: Benign paroxysmal vertigo, unspecified ear Assessment: Pt is a pleasant 53yo F with PMH including osteoporosis, asthma, Leo-Danlos syndrome, thyroid disorder, and low vitamin D who presents to PT with dizziness. She reports a history of dizziness for years and reports symptoms have increased over the past few months. She also reports history of syncope. Upon assessment, pt had difficulty with oculomotor testing (smooth pursuit and saccades) with increased dizziness. [place] assessed which was negative for nystagmus however pt had increase in symptoms upon sitting upright therefore unable to further assess BPPV at this time. Vitals in sitting were: BP 131/68, HR 60 bpm. Vitals in standing after 2 min were: BP 146/75, HR 66 bpm. Pts symptoms began to improve with seated rest and water. Pt may benefit from PT for continued BPPV assessment and gait/balance training. I discussed with pt that I recommend she also follow up with her PCP for further work up as her dizziness is mostly constant and she has a complex medical history, takes multiple prescribed medications and has a history of syncope. Pt verbalized understanding and has a follow up with her PCP in 1 week. Frequency and Duration: The patient will be seen 2x/week for 3 weeks Short Term Goals: Pt will be I with HEP to promote self management of symptoms Pt will improve smooth pursuit with oculomotor testing [employer] Goals: Pt will perform sit<>stands without dizziness or instability Pt will ambulate > 200' without AD with improved gait mechanics and without dizziness or instability Pt will ascend/descend 1 flight of stairs with reciprocal pattern without dizziness or instability Treatment Plan: Modalities to reduce pain, spasms and effusion. Manual therapy to restore motion and function. Therapeutic exercise to improve strength and flexibility. Neuromuscular re-education for posture and balance. Therapeutic activities to return to functional activities of daily living. Electronically signed by: Vira Donahue, PT, DPT Please sign and return to therapist. Thank you for your referral.
--- NOTE | 2024-08-06 08:48 | MHC.PT.DC ---
[facility] [place] Office [place] Office [place] Office [address] Irwin Honeycutt [address] [phone] F: [phone] F: [phone] F: [phone] F: [phone] Physical Therapy Discharge Report Diagnosis: Benign paroxysmal vertigo, unspecified ear Date of Surgery: Date of Evaluation: 05/02/24 Date of Discharge: 08/06/24 Treatments to Date: 8 Cancellations to Date: 3 No Shows to Date: Discharge Status: Visit Non-compliance Discharge Summary: Pt was seen for PT from 05/02/24-06/11/24. Her last attended appointment was 06/11/24. She has had 3 cancellations including a cancellation for her last scheduled appointment. She is being D/C from skilled PT as she has not attended or called to reschedule in > 30 days. Pt current level of function is unknown at this time Electronically signed by: Vira Donahue, PT, DPT Please sign and return to therapist. Thank you for your referral.
== END 2024-08-06 08:48 | disposition home or self-care (01) ==
LOC: HO.PT 08:08
PROVIDERS: PCP Internal Medicine
DX: H81.10 Benign paroxysmal vertigo, unspecified ear (principal)
CPT/HCPCS: 97112; 97162; 97535

== ENCOUNTER → 2024-06-11 13:43 | Outpatient (REF) | payer OTHER, SELFPAY ==
--- NOTE | 2024-06-11 13:46 | CA_ITS ---
Transthoracic Echocardiogram Patient (Last, First, Middle): Leonila Cronin, Gender: Female Date of : 1970 Age: 53 Procedure Date: 06/11/2024 Procedure Type: Transthoracic Echocardiogram Location: OP Height: 157.48 cm Weight: 52.16 kg BSA: 1.51 m2 Heart Rate: bpm BP: 116 / 60 mmHg [place]: Referring MD: Abby Fuller MD Symptoms: R55 - Syncope and collapse Study Quality: Fair ECG Rhythm: Sinus Conclusions: - The left ventricular systolic function is normal. The visually estimated ejection fraction is between 60-65%. - No obvious valvular pathology seen on this study. Findings Left Ventricle Normal left ventricular cavity size. There is normal left ventricular wall thickness. The left ventricular systolic function is normal. The visually estimated ejection fraction is between 60-65%. There is no evidence of regional wall motion abnormalities. Diastolic function is normal for age. Right Ventricle Normal right ventricular cavity size and systolic function. Atria Both atria are normal in size. Aortic Valve The aortic valve was not well visualized. There is no aortic valve stenosis. There is no aortic valve regurgitation. Mitral Valve The mitral valve appears normal. There is trace mitral valve regurgitation. There is no mitral valve stenosis. Pulmonic Valve The pulmonic valve is likely normal. Tricuspid Valve Normal tricuspid valve structure. There is trace tricuspid valve regurgitation. There is no evidence of pulmonary hypertension. Great Vessels The asc aorta is normal in size. Venous The inferior vena cava is normal in size and collapses greater than 50% with inspiration. Pericardium/Pleural There is no evidence of pericardial effusion. Prior Study Comparison No prior study available for comparison. Recommendations, Care & Conclusions No obvious valvular pathology seen on this study. Measurements 2D Linear Measurements IVSd: 0.83 0.6-0.9/0.6-1.0 cm LVIDd: 4.26 3.9-5.3/4.2-5.9 cm LVIDd Index: 2.82 2.4-3.2/2.2-3.1 cm/m2 LVIDs: 2.69 2.0-3.6 cm LVPWd: 0.82 0.7-1.1 cm Ao Root: 2.60 2.1-3.5 cm LA Diam: 3.10 2.7-3.8/3.0-4.0 cm LAIDs Index: 2.05 1.5-2.3 cm/m2 LV Mass: 135.15 67-162/88-224 g LV Mass Index: 89.51 43-95/49-115 g/m2 LVOT Diam: 1.90 3.0+(-)1.3 cm 2D Systolic Function EF 4C: 65.10 >55% Mitral Valve MV Pk E: 0.73 MV PK A: 0.52 MV Decel Time: 240.00 E/A: 1.40 E'Lateral: 13.10 E'Medial: 10.70 E/E' Med: 6.80 E/E' Lat: 5.60 PHT: 70.00 MVA PHT: 3.14 Decel [place]: 3.03 Aortic Valve AoV Pk Oscar: 1.16 AoV Mn Oscar: 0.69 AoV VTI: 0.28 AoV Pk Grad: 5.00 Aov Mn Grad: 2.00 KWESI Cont.VTI: 2.09 LVOT LVOT Pk Oscar: 0.80 LVOT Mn Oscar: 0.51 LVOT VTI: 0.20 LVOT Pk Grad: 3.00 LVOT Mn Grad: 1.00 LVOT Diam: 1.90 LVOT Area: 2.84 Diastolic Function MV Pk E: 0.73 MV Pk A: 0.52 E/A: 1.40 E'Medial: 10.70 E/E' Med: 6.80 E' Laterial: 13.10 E/E' Lat: 5.60 Right Ventricle TAPSE (mm): 24.00 TVS' Oscar: 13.00 Tricuspid Valve TR Pk Oscar: 2.31 TR Pk Grad: 21.00 RA Press: 3.00 RVSP: 24.00 Great Vessels Aorta Ao Root-2D: 2.60 2.0-3.7 cm Ao Asc: 2.70 2.1-3.4 cm Pulmonary Valve PV Pk Oscar: 0.86 Peak PV Grad: 3.00 Updated in Other Vendor System with Status of Final Eulogio Rashid MD electronically signed on 06/12/2024 12:47:36 PM with status of Final
--- OUTSIDE RECORDS SUMMARY | 2024-06-11 15:15 | XMS_ITS | Clinical Summary ---
Author Organization [facility] Address [address] [place] [address] Care Team Providers Care Vaccine Specialist Name Role Phone Unavailable Primary Care Provider [...] 2018 Zoster Vaccines (1 of 2) 2018 COVID-19 Vaccine ( - 2023-2 5 season) [...]
== END ==
LOC: HO.CARD 13:43
PROVIDERS: PCP Internal Medicine; Visit Provider Internal Medicine
DX: R55 Syncope and collapse (principal); R01.1 Cardiac murmur, unspecified
CPT/HCPCS: 93306

== ENCOUNTER → 2024-06-11 13:46 | Outpatient (BNV) | payer OTHER, SELFPAY | PROVIDERS: PCP Internal Medicine; Visit Provider Internal Medicine | DX: R55 Syncope and collapse (principal) | CPT/HCPCS: 93306 ==

== ENCOUNTER 2024-06-18 14:08 | Outpatient (REF) | payer OTHER, SELFPAY ==
--- NOTE | ~2024-06-18 | US_ITS ---
EXAMINATION: BILATERAL CAROTID ULTRASOUND WITH DOPPLER HISTORY: R55 - Syncope and collapse COMPARISON: There are no prior studies for comparison. TECHNIQUE: Real time and Color and Spectral doppler ultrasonography of the carotid and vertebral arteries was performed in multiple planes. FINDINGS: No significant plaque is identified. VERTEBRAL FLOW DIRECTION: Antegrade bilaterally. PEAK SYSTOLIC VELOCITIES (in cm/sec): RIGHT: CCA: Prox: 109 Dist: 103 ICA: Prox: 113 Mid: 77.9 Dist: 91.7 ICA/CCA Ratio: 1.04 ECA: 106 Peak ICA end diastolic velocity (EDV): 29.8 LEFT: CCA: Prox: 124 Dist: 81.8 ICA: Prox: 72.9 Mid: 69.4 Dist: 82.9 ICA/CCA Ratio: 1.01 ECA: 90.9 Peak ICA end diastolic velocity (EDV): 31.8 US/US carotid duplex BI IMPRESSION: Unremarkable carotid ultrasound. Electronically signed by: Ammon Cross MD 06/18/2024 02:53 PM EDT
--- OUTSIDE RECORDS SUMMARY | 2024-06-18 14:22 | XMS_ITS | Clinical Summary ---
Author Organization [facility] Address [address] [place] [address] Care Team Providers Care Claim Representative Name Role Phone Unavailable Primary Care Provider [...]
== END 2024-06-18 14:09 | disposition home or self-care (01) ==
LOC: HO.US 14:08
PROVIDERS: PCP Internal Medicine; Visit Provider Internal Medicine
DX: R55 Syncope and collapse (principal); R09.89 Other specified symptoms and signs involving the circulatory and respiratory systems
CPT/HCPCS: 93880

== ENCOUNTER → 2024-06-18 14:10 | Outpatient (BNV) | payer OTHER, SELFPAY | PROVIDERS: PCP Internal Medicine; Visit Provider Radiology Diagnostic Radiology | DX: R55 Syncope and collapse (principal) | CPT/HCPCS: 93880 ==

== ENCOUNTER 2024-09-26 13:13 | Outpatient (REF) | payer OTHER, SELFPAY ==
--- OUTSIDE RECORDS SUMMARY | 2024-09-26 14:06 | XMS_ITS | Patient Health Record ---
Author Organization [facility] Address [address] [place] [address] Care Team Providers Care Counterintelligence Analyst Name Role Phone Abby Hancock Primary Care Provider Carlitos Zavala Jr Unavailable [phone] Allergies Allergen (clinical drug ingredient) Drug/Non Drug Allergy documented on EMR Reaction Allergy Type Onset Date Status aspirin Aspirin Unknown Drug Allergy Active Reason For Referral No Information Medications Medication SIG (Take, Route, Frequency, Duration) Notes Start Date End Date Status traZODone HCl 50 MG 1 tablet at bedtime as needed Orally Once a day Active Gabapentin 600 MG 1 tablet Orally Twic e a day Active Levothyroxine Sodium 75 MCG 1 tablet on an empty stomach in the morning Orally Once a day Active Ibuprofen 400 MG 1 tablet with food o r milk as needed Orally Three times a day/prn Active Amoxicillin 500 MG 1 tablet Orally ever y 12 hrs Active Cyclobenzaprine HCl 5 MG TAKE 1 TABLET B Y MOUTH TWICE A DAY Oral for 30 Active Meclizine HCl 25 MG 1 tablet as needed Orally Once a day Active Nabumetone 750 MG 1 tablet Orally QD Active Omeprazole 20 MG 1 capsule Orally Onc e a day Active Social History Tobacco Use: Social History Observation Description Date Details (start date - stop date) Never Smoker NA - NA Tobacco Use/Smoking Question Answer Notes Patient is a nonsmoker Alcohol Screen Question Answer Notes Did you have a drink contain ing alcohol in the past year? Yes How often did you have a dri nk containing alcohol in the past year? Monthly or less (1 point) How many drinks did you have on a typical day when you were drinking in the past year? 1 or 2 drinks (0 point) How often did you have 6 or more drinks on one occasion in the past year? Never (0 point) Points 1 Interpretation Negative Problems Problem Type SNOMED Code ICD Code Onset Dates Problem Status W/U Status Risk Notes Problem [id number] Abdominal bloati ng (R14.0) Active confirmed Problem [id number] Gastroesophageal reflux disease without esophagitis (K21.9) Active confirmed Plan Of Treatment Future Test Test Name Order Date UPPER GI ENDOSCOPY 03/30/2017 Insurance Providers Payer Name Payer Address Payer Phone Subscriber Number Group Number Insured Name Patient Relationship to Insured Coverage Start Date Coverage End Date [facility] [address] [address] [place], [place] [id number] NANCY CHERY Self - patient is the insured Medical (General) History Medical History History ICD Code 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
--- OUTSIDE RECORDS SUMMARY | 2024-09-26 14:06 | XMS_ITS | Clinical Summary ---
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 Active zolpidem (AMBIEN) 10 mg tablet Take 10 mg by mouth nightly at bedtime as needed for sleep. Active gabapentin (NEURONTIN) 600 MG tabletIndications: Chronic fatigue,Fibromyalg ia TAKE 3 & 1/2 TABLETS BY MOUTH IN THE EVENING 315 tablet 1 05/28/19 Active Additional Information Patient taking differently: TAKE 4 TABLETS BY MOUTH IN THE EVENING, Reported on 05/02/2023 buPROPion (WELLBUTRIN XL) 150 MG ER 24 hr tablet Take 150 mg by mouth every morning. Active dupilumab (DUPIXENT) 300 mg/2 mL subcutaneous pen Inject 300 mg under the skin every 14 (fourteen) days. Active fluticasone-umecli din-vilanter (TRELEGY ELLIPTA) 200-62.5-25 mcg inhaler Inhale 1 puff into the lungs daily. Active ondansetron (ZOFRAN-ODT) 4 MG disintegrating tablet Take 4 mg by mouth as needed. Active pantoprazole (PROTONIX) 40 MG tablet Take 1 tablet by mouth every morning. 04/18/19 24 Active levothyroxine (SYNTHROID, LEVOTHROID) 112 MCG tablet Take 112 mcg by mouth every morning. Active cholecalciferol (VITAMIN D3) 5,000 unit capsuleIndications :Age-related osteoporosis without current pathological fracture,Vitamin D insufficiency Take 1 capsule (5,000 Units total) by mouth daily. 90 capsule 1 10/03/19 24 Active Active Problems Problem Noted Date Diagnosed Date Age-related osteoporosis wit hout current pathological fracture 05/02/2023 Assessment & Plan (10/03/2023 12:54 PM EDT): Due to worsening heartburn with Fosamax I have offered her a parenteral option-Reclast (zoledronic acid) infused every 12 months at [facility]. Pamphlet on its side effects provided for review after brief discussion in the office. Unfortunately she has lost complex provided in late April 2023 and asks for another printout today. Proper daily calcium vitamin D supplementation reviewed and strongly encouraged. Importance of weightbearing exercises 45-60 minutes daily reviewed and strongly encouraged. Fall and fracture prevention strategies reviewed. Assessment & Plan (05/03/2023 9:36 AM EDT): Due to worsening heartburn with Fosamax I have offered her a parenteral option-Reclast (zoledronic acid) infused every 12 months at [facility]. Pamphlet on its side effects provided for review after brief discussion in the office. Proper daily calcium vitamin D supplementation reviewed and strongly encouraged. Importance of weightbearing exercises 45-60 minutes daily reviewed and strongly encouraged. Fall and fracture prevention strategies reviewed. Pain of left hip joint 02/23/2019 Assessment & Plan (02/24/2019 6:33 PM EST): Use warm pack versus warm shower or bath prior to gentle ROM, stretching exercises. Examples of exercises for hips printed to try carefully at home. If no abnormalities on x-rays detected continue home exercise program versus PT trial. Joint protection, energy conservation. Avoid falls, injuries, overuse. She may benefit from topical cream such as Arnica, Biofreeze, Aspercreme versus medicated patches such as salonpas, icy hot patch 2-3 times daily and if necessary at bedtime x 3 weeks. Call if worse or not better. Bilateral carpal tunnel syndrome 11/18/2017 Assessment & Plan (02/24/2019 6:30 PM EST): Joint protection, energy conservation. Assistive devices and splinting as needed. Topical cream such as Aspercreme, Zostrix, Arnica versus Salonpas or icy hot patch 2-3 times daily and as needed at bedtime x 3 weeks. If not better or worse consider local steroid injection or surgical release. Assessment & Plan (04/17/2018 11:21 AM EDT): Joint protection, energy conservation. Assistive devices as needed. Topical cream such as Aspercreme, Zostrix, Arnica versus Salonpas or icy hot patch 2-3 times daily and as needed at bedtime x 3 weeks. If not better or worse consider local steroid injection or surgical release. 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 Mitral valve prolapse and aortic root dilatation, when present are typically of an mild degree with no increased risk of cardiac complications. Chronic fatigue, functional bowel disorders, cardiovascular autonomic dysfunction, swallowing phonation disorders, sleep disorders including apnea, migraine and entrapment and peripheral neuropathies, inflammation from mast cell activation disorders, anxiety disorders and urogynecologic disorders are common. She is following with her respective GI, [employer], psychologist/psychiatry specialists. Avoidance of falls, injuries and overuse is of paramount of management. Gentle, regular exercise routine, frequent relaxation/meditation sessions are of additional benefit. Assessment & Plan (05/03/2023 9:31 AM EDT): Hypermobile Leo-Danlos syndrome is characterized by generalized joint hypermobility, joint instability, pain, soft and hyperextensible skin with atrophic scars and easy bruising, dental crowding, abdominal hernias, pelvic organ prolapse and sometimes marfanoid body habitus, mitral valve prolapse with aortic root dilatation. Mitral valve prolapse and aortic root dilatation, when present are typically of an mild degree with no increased risk of cardiac complications. Chronic fatigue, functional bowel disorders, cardiovascular autonomic dysfunction, swallowing phonation disorders, sleep disorders including apnea, migraine and entrapment and peripheral neuropathies, inflammation from mast cell activation disorders, anxiety disorders and urogynecologic disorders are common. She is following with her respective GI, [employer], psychologist/psychiatry specialists. Avoidance of falls, injuries and overuse is of paramount of management. Gentle, regular exercise routine, frequent relaxation/meditation sessions are of additional benefit. Acquired hypothyroidism 09/08/2017 Gastroesophageal reflux disease without esophagi tis 09/08/2017 Assessment & Plan (10/03/2023 11:36 AM EDT): Avoid late, large, spicy meals. Keep headboard elevated at 45 angle for nighttime. Carefully continue Protonix (pantoprazole) 40 mg daily as prescribed. Assessment & Plan (05/03/2023 9:31 AM EDT): Avoid late, large, spicy meals. Keep headboard elevated at 45 angle for nighttime. Carefully continue pantoprazole as prescribed. Assessment & Plan (02/24/2019 6:30 PM EST): Avoid late, large, spicy meals. Keep headboard elevated at 45 angle for nighttime. Assessment & Plan (04/17/2018 11:22 AM EDT): Continue Prevacid as prescribed. Avoid late, large, spicy meals. Keep headboard elevated at 45 angle for nighttime. Chronic midline low back pain with left-sided sc iatica 09/08/2017 Assessment & Plan (02/24/2019 6:27 PM EST): Continue current dose of gabapentin. Avoid falls, injuries, heavy lifting, sudden turns, stooping. Use warm packs or warm shower prior to gentle, regular core muscle exercising Gentle massage, traction, chiropractor versus acupuncture treatments. Warm pool therapy at [facility] Assessment & Plan (04/17/2018 11:19 AM EDT): Continue current dose of gabapentin. Avoid falls, injuries, heavy lifting, sudden turns, stooping. Use warm packs or warm shower prior to gentle, regular core muscle exercising Warm pool therapy at [facility] Chronic fatigue 09/08/2017 Vitamin D insufficiency 09/08/2017 Assessment & Plan (10/03/2023 12:53 PM EDT): She prefers to take daily vitamin D 5000 units to replace serum level into sufficient range. Due to slow buildup of serum vitamin D I have asked her to take vitamin D 10,000 units twice a week in addition to 5 days 5000 units daily. Assessment & Plan (05/03/2023 9:31 AM EDT): She prefers to take daily vitamin D 5000 units to replace serum level into sufficient range. Assessment & Plan (02/24/2019 6:26 PM EST): Continue weekly vit D 42455 IU every Tuesday to bring serum level up to 40-50 ng/mL. Assessment & Plan (04/17/2018 11:18 AM EDT): Continue weekly vit D 01428 IU every Tuesday to bring serum level up to 40-50 ng/mL. Fibromyalgia 09/08/2017 Assessment & Plan (10/03/2023 11:36 AM EDT): Carefully continue Cymbalta 30 mg daily in addition to gabapentin 2400 mg nightly. Continue regular exercise program - try [facility] warm pool therapy in [place] 2- 3/week and continue all year round Continue reading and using in daily routines advice provided by Dr Jeovanny Swenson in his book Full catastrophe living - addressing management strategies for patients with fibromyalgia utilizing mindfulness approach. Another useful resource is book by Dr. Iris Castrejon Managing pain before it manages you Assessment & Plan (05/03/2023 9:32 AM EDT): Carefully continue Cymbalta 30 mg daily in addition to gabapentin 2400 mg nightly. Continue regular exercise program - try [facility] warm pool therapy in [place] 2- 3/week and continue all year round Continue reading and using in daily routines advice provided by Dr Jeovanny Swenson in his book Full catastrophe living - addressing management strategies for patients with fibromyalgia utilizing mindfulness approach. Another useful resource is book by Dr. Iris Castrejon Managing pain before it manages you Assessment & Plan (02/24/2019 6:30 PM EST): Carefully continue Cymbalta 30 mg daily in addition to gabapentin 1800 mg nightly. Continue regular exercise program - try [facility] warm pool therapy in [place] 2- 3/week and continue all year round Continue reading and using in daily routines advice provided by Dr Jeovanny Swenson in his book Full catastrophe living - addressing management strategies for patients with fibromyalgia utilizing mindfulness approach. Assessment & Plan (04/17/2018 11:20 AM EDT): Carefully continue Cymbalta 30 mg daily in addition to gabapentin 1800 mg nightly. Continue regular exercise program - try [facility] warm pool therapy in [place] 2- 3/week and continue all year round I bought the book written by Dr Jeovanny Swenson Full catastrophe living - & follow advice provided in a book Encounters Date Type Department Care Team Description 09/14/2024 Telephone [facility] Rheumatology [address] [place] [address] Ju Melgoza MD Appointment from Last 3 Months Social History Tobacco Use Types Packs/Day Years Used Date Smoking Tobacco: Never Smokeless Tobacco: Never Tobacco Cessation:Counseling Given: Not Answered Alcohol Use Standard Drinks/Week Comments No 0 (1 standard drink = 0.6 oz pur e alcohol) Education Answer Date Recorded Are you interested in more education? Not on donal e 06/04/2022 Are you concerned about learning? Not on file 06/04/2022 No 06/04/2022 No 06/04/2022 Digital Access Answer Date Recorded No 07/03/2022 No 07/03/2022 Reliable internet access at home? Not on file 07/03/2022 Device with a working camera? Not on file Comments Unknown Sex and Gender Information Value Date Recorded Sex Assigned at Not on file Legal Sex Female 12:09 PM EST Gender Identity Not on file Sexual Orientation Not on file Last Filed Vital Signs Vital Sign Reading Time Taken Comments Blood Pressure 108/72 10/03/2023 11:33 AM EDT Pulse 61 10/03/2023 11:33 AM EDT Temperature - - Respiratory Rate - - Oxygen Saturation 99% 10/03/2023 11:33 AM EDT Inhaled Oxygen Concentration - - Weight 56.2 kg (124 lb) 10/03/2023 11:33 AM EDT Height 157.5 cm (5' 2.01 ) 10/03/2023 11:33 AM E DT Body Mass Index 22.67 10/03/2023 11:33 AM EDT Plan of Treatment Health Maintenance Due Date Last Done Comments LIPID PANEL 1968 DEPRESSION SCREENING 1980 HEPATITIS C SCREENING 1986 HIV ONE-TIME SCREENING (18-6 5 YEARS) 1986 PAP SMEAR 1989 MAMMOGRAM 2008 COLOGUARD 2013 COLONOSCOPY 2013 COLORECTAL CANCER SCREENING 2013 FIT TEST 2013 FOBT 2013 SIGMOIDOSCOPY 2013 VIRTUAL COLONOSCOPY 2013 PNEUMOCOCCAL VACCINES (50+ years) (1 of 1 - PCV) 2018 ZOSTER VACCINES (1 of 2) 2018 TSH LEVEL 09/08/2018 09/08/2017 COVID-19 VACCINE (4 - 2023-2 5 season) 2023 01/16/2021, 03/26/2020, 02/29/2020 Adult Td,Tdap Booster 03/12/2029 03/12/2019 SMOKING STATUS SCREENING (On ce After 26 Yrs) Completed 10/03/2023 HEPATITIS A VACCINES Aged Out No long er eligible based on patient's age to complete this topic HIB VACCINES Aged Out No longer eligi ble based on patient's age to complete this topic MENINGOCOCCAL VACCINES (ACWY) Aged Out No longer eligible based on patient's age to complete this topic MENINGOCOCCAL VACCINES (B) Aged Out N o longer eligible based on patient's age to complete this topic Medical Devices Not on file Procedures Procedure Name Priority Date/Time Associated Diagnosis Comments TSH Routine 09/08/2017 4:31 PM EDT Leo-Danlos syndrome type III Acquired hypothyroidism Gastroesophageal reflux disease without esophagitis Chronic midline low back pain with left-sided sciatica from Last 3 Months or Most Recently Relevant to Health Maintenance Results * TSH (09/08/2017 4:31 PM EDT) TSH 2.81 0.27 - 4.20 uIU/mL [facility] Blood 09/08/2017 4:31 PM EDT 09/08/2017 4:33 PM EDT us Ju Melgoza MD LAB BLOOD ORDERABLES Fin al Result Performing Organization Address City/State/[facility] Co de Phone Number [address] [address] from Last 3 Months or Most Recently Relevant to Health Maintenance Insurance [address] [place] [id number] GENERIC COMMERCIAL GENERIC COMMERCIAL GENERIC COMMERCIAL [employer] GENERIC COMMERCIAL GENERIC COMMERCIAL [employer]IC COMMERCIAL [employer] Care Teams Lung Gun Operator Relationship Specialty Start Date End Date Abby Hancock MD [address] [place] [address] PCP - General Internal Medicine 03/25/22 Additional Source Comments The information contained in this document represents components of the legal health record. It is not the complete legal health record.[facility]
--- OUTSIDE RECORDS SUMMARY | 2024-09-26 14:06 | XMS_ITS | Clinical Summary ---
Author Organization [facility] Address [address] [place] [address] Care Team Providers Care Claims Consultant Name Role Phone Unavailable Primary Care Provider [...] Vaccine ( - 2023-2 5 season) 2023 Depression Screening 02/08/2024 Influenza Vaccine (#1) 2024 HIB Vaccines Aged Out No longer [...]
[2024-09-26 14:43] LABS: Thyroid Stimulating Hormone 3.35 uIU/mL (0.32-4.0)
== END 2024-09-26 13:14 | disposition home or self-care (01) ==
LOC: HO.LAB 13:13
PROVIDERS: PCP Internal Medicine; Visit Provider Internal Medicine
DX: E06.3 Autoimmune thyroiditis (principal)
CPT/HCPCS: 36415; 84443

== ENCOUNTER 2024-12-19 16:24 | Outpatient (AMB) | payer OTHER, SELFPAY ==
--- OUTSIDE RECORDS SUMMARY | 2024-05-07 11:35 | XMS_ITS | Continuity of Care Document ---
Author Organization [facility] Address [address] [facility] [address] [place] [address] Phone Care Team Providers Care Volunteer Assistant Name Role Phone Celestino Herrera MD Unavailable Unavailable Medications Medication Instructions Dosage Effective Dates (start - stop) Status Comments WELLBUTRIN XL 300MGTABLET - Active VIOXX 25MGTABLET 1 tab daily - Active Results Test Name Date and Time Measure Units Reference Range Abnormal Flag Status Comments Panel Description: LIPID PANEL, STANDARD Final CHOLESTEROL, TOTAL 2024 21:28:5 6 161 mg/dL <200 N Final Performed by:[facility] - [address] (QAW)[address] [place] [address] HDL CHOLESTEROL 2024 21:28:5 6 65 mg/dL > OR = 50 N Final Performed by:[facility] - [address] (QAW)[address] [place] [address] TRIGLYCERIDES 2024 21:28:5 6 52 mg/dL <150 N Final Performed by:[facility] - [address] (QAW)[address] [place] [address] LDL-CHOLESTEROL 2024 21:28:5 6 83 mg/dL (calc) N Final Reference range: <100 Desirable range <100 mg/dL for primary prevention; <70 mg/dL for patients with CHD or diabetic patients with > or = 2 CHD risk factors. LDL-C is now calculated using the Oren calculation, which is a validated novel method providing better accuracy than the Friedewald equation in the estimation of LDL-C. Deni MARIANO et al. YAA. 2013;310(19): 5544-0284 (http://education .FOODSCROOGE/faq/NEW713)P erformed by:[facility] - [facility] [place] (QAW)[address] [place] [address] CHOL/HDLC RATIO 2024 21:28:5 6 2.5 (calc) <5.0 N Final Performed by:[facility] [place] (QAW)[address] [place] [address] NON HDL CHOLESTEROL 2024 21:28:5 6 96 mg/dL (calc) <130 N Final For patients wit h diabetes plus 1 major ASCVD risk factor, treating to a non-HDL-C goal of <100 mg/dL (LDL-C of <70 mg/dL) is considered a therapeutic option.Performed by:[facility] [address] ([facility])[address] [place] [address] Panel Description: COMPREHENSIVE METABOLIC PANEL Final GLUCOSE 2024 21:28:5 6 83 mg/dL 65-99 N Final Fasting refere nce interval Performed by:[facility] [place] - [facility] [address] (QAW)[address] [place] [address] UREA NITROGEN (BUN) 2024 21:28:5 6 10 mg/dL 7-25 N Final Performed by:[facility] [place] - [facility] [place] (QAW)[address] [place] [address] CREATININE 2024 21:28:5 6 0.75 mg/dL 0.50-1.03 N Final Performed by:[facility] - [facility] [place] (QAW)[address] [place] [address] EGFR 2024 21:28:5 6 94 mL/min/ 1.73m2 > OR = 60 N Final Performed by:[facility] [place] - [facility] [place] (QAW)[address] [place] [address] BUN/CREATININE RATIO 2024 21:28:5 6 SEE NOTE: (calc) 6-22 Final Not Reported: BUN and Creatinine are within reference range. Performed by:[facility] - [facility] [address] (QAW)[address] [place] [address] SODIUM 2024 21:28:5 6 140 mmol/L 135-146 N Final Performed by:[facility] - [facility] [address] (QAW)[address] [place] [address] POTASSIUM 2024 21:28:5 6 4.3 mmol/L 3.5-5.3 N Final Performed by:[facility] - [address] [place] [address] (QAW)[address] [place] [address] CHLORIDE 2024 21:28:5 6 106 mmol/L 98-110 N Final Performed by:[facility] - [facility] [address] (W)[address] [place] [address] CARBON DIOXIDE 2024 21:28:5 6 27 mmol/L 20-32 N Final Performed by:[facility] - [facility] [address] (QAW)[address] [place] [address] CALCIUM 2024 21:28:5 6 9.7 mg/dL 8.6-10.4 N Final Performed by:[facility] - [address] [place] [address] (QAW)[address] [place] [address] PROTEIN, TOTAL 2024 21:28:5 6 6.8 g/dL 6.1-8.1 N Final Performed by:[facility] - [facility] [address] (QAW)[address] [place] [address] ALBUMIN 2024 21:28:5 6 4.4 g/dL 3.6-5.1 N Final Performed by:[facility] - [facility] [address] (QAW)[address] [place] [address] GLOBULIN 2024 21:28:5 6 2.4 g/dL (calc) 1.9-3.7 N Final Performed by:[facility] - [address] [place] [address] (QAW)[address] [place] [address] ALBUMIN/GLOBULIN RATIO 2024 21:28:5 6 1.8 (calc) 1.0-2.5 N Final Performed by:[facility] (QAW)[address] [place] [address] BILIRUBIN, TOTAL 2024 21:28:5 6 0.7 mg/dL 0.2-1.2 N Final Performed by:[facility] (QAW)[address] [place] [address] ALKALINE PHOSPHATASE 2024 21:28:5 6 57 U/L 37-153 N Final Performed by:[facility] (W)[address] [place] [address] AST 2024 21:28:5 6 14 U/L 10-35 N Final Performed by:[facility] (QAW)[address] [place] [address] ALT 2024 21:28:5 6 10 U/L 6-29 N Final Performed by:[facility] (QAW)[address] [place] [address] Panel Description: URINALYSIS, COMPLETE Final COLOR 2024 21:28:5 6 YELLOW YELLOW N Final Performed by:[facility] (QAW)[address] [place] [address] APPEARANCE 2024 21:28:5 6 CLEAR CLEAR N Final Performed by:[facility] (QAW)[address] [place] [address] SPECIFIC GRAVITY 2024 21:28:5 6 1.008 1.001-1.035 N Final Performed by:[facility] - [facility] [address] (QAW)[address] [place] [address] PH 2024 21:28:5 6 5.5 5.0-8.0 N Final Performed by:[facility] - [address] [place] [address] (QAW)[address] [place] [address] GLUCOSE 2024 21:28:5 6 NEGATIVE NEGATIVE N Final Performed by:[facility] [address] [address] (QAW)[address] [place] [address] BILIRUBIN 2024 21:28:5 6 NEGATIVE NEGATIVE N Final Performed by:[facility] (QAW)[address] [place] [address] KETONES 2024 21:28:5 6 NEGATIVE NEGATIVE N Final Performed by:[facility] (QAW)[address] [place] [address] OCCULT BLOOD 2024 21:28:5 6 NEGATIVE NEGATIVE N Final Performed by:[facility] (QAW)[address] [place] [address] PROTEIN 2024 21:28:5 6 NEGATIVE NEGATIVE N Final Performed by:[facility] (QAW)[address] [place] [address] NITRITE 2024 21:28:5 6 NEGATIVE NEGATIVE N Final Performed by:[facility] (QAW)[address] [place] [address] LEUKOCYTE ESTERASE 2024 21:28:5 6 NEGATIVE NEGATIVE N Final Performed by:[facility] (QAW)[address] [place] [address] WBC 2024 21:28:5 6 0-5 /HPF < OR = 5 N Final Performed by:[facility] (QAW)[address] [place] [address] RBC 2024 21:28:5 6 NONE SEEN /HPF < OR = 2 N Final Performed by:[facility] - [address] (QAW)[address] [place] [address] SQUAMOUS EPITHELIAL CELLS 2024 21:28:5 6 0-5 /HPF < OR = 5 Final Performed by:[facility] - [address] [place] [address] (QAW)[address] [place] [address] TRANSITIONAL EPITHELIAL CELLS 2024 21:28:5 6 DNR /HPF < OR = 5 N Final Performed by:[facility] - [address] [place] [address] (QAW)[address] [place] [address] RENAL EPITHELIAL CELLS 2024 21:28:5 6 DNR /HPF < OR = 3 N Final Performed by:[facility] - [address] [place] [address] (QAW)[address] [place] [address] BACTERIA 2024 21:28:5 6 NONE SEEN /HPF NONE SEEN N Final Performed by:[facility] SolutionsDonna [place] - [address] [place] [address] (QAW)[address] [place] [address] CALCIUM OXALATE CRYSTALS 2024 21:28:5 6 DNR /HPF NONE OR FEW N Final Performed by:[facility]na [place] - [address] [place] [address] (QAW)[address] [place] [address] TRIPLE PHOSPHATE CRYSTALS 2024 21:28:5 6 DNR /HPF NONE OR FEW N Final Performed by:[facility] - [address] [place] [address] (QAW)[address] [place] [address] URIC ACID CRYSTALS 2024 21:28:5 6 DNR /HPF NONE OR FEW N Final Performed by:[facility] SolutionsDonna [place] - [facility] [address] (QAW)[address] [place] [address] AMORPHOUS SEDIMENT 2024 21:28:5 6 DNR /HPF NONE OR FEW N Final Performed by:[facility] - [address] (QAW)[address] [place] [address] CRYSTALS 2024 21:28:5 6 DNR /HPF NONE SEEN N Final Performed by:[facility] - [address] (QAW)[address] [place] [address] HYALINE CAST 2024 21:28:5 6 NONE SEEN /LPF NONE SEEN N Final Performed by:[facility] - [facility] [address] (QAW)[address] [place] [address] GRANULAR CAST 2024 21:28:5 6 DNR /LPF NONE SEEN N Final Performed by:[facility] - [facility] [address] (QAW)[address] [place] [address] CASTS 2024 21:28:5 6 DNR /LPF NONE SEEN N Final Performed by:[facility] - [facility] [address] (QAW)[address] [place] [address] YEAST 2024 21:28:5 6 DNR /HPF NONE SEEN N Final Performed by:[facility] - [facility] [address] (QAW)[address] [place] [address] COMMENTS 2024 21:28:5 6 DNR N Final Performed by:[facility] SolutionsDonna [place] - [address] [place] [address] (QAW)[address] [place] [address] NOTE 2024 21:28:5 6 SEE COMMENT Final This urine was analyzed for the presence of WBC, RBC, bacteria, casts, and other formed elements. Only those elements seen were reported. Performed by:[facility] - [facility] [address] (QAW)[address] [place] [address] Panel Description: CBC (INCLUDES DIFF/PLT) Rosalee l WHITE BLOOD CELL COUNT 2024 21:28:5 6 5.6 Thousan d/uL 3.8-10.8 N Final Performed by:[facility] - [address] (QAW)[address] [place] [address] RED BLOOD CELL COUNT 2024 21:28:5 6 4.29 Million /uL 3.80-5.10 N Final Performed by:[facility] - [address] (QAW)[address] [place] [address] HEMOGLOBIN 2024 21:28:5 6 13.1 g/dL 11.7-15.5 N Final Performed by:[facility] - [address] (QAW)[address] [place] [address] HEMATOCRIT 2024 21:28:5 6 38.1 % 35.0-45.0 N Final Performed by:[facility] - [address] (QAW)[address] [place] [address] MCV 2024 21:28:5 6 88.8 fL 80.0-100.0 N Final Performed by:[facility] - [address] (QAW)[address] [place] [address] MCH 2024 21:28:5 6 30.5 pg 27.0-33.0 N Final Performed by:[facility] - [address] (QAW)[address] [place] [address] MCHC 2024 21:28:5 6 34.4 g/dL 32.0-36.0 N Final For adults, a slight decrease in the calculated MCHCvalue (in the range of 30 to 32 g/dL) is most likelynot clinically significant; however, it should beinterpreted with caution in correlation with otherred cell parameters and the patient's clinicalcondition .Performed by:[facility] [place] - [address] (QAW)[address] [place] [address] RDW 2024 21:28:5 6 12.7 % 11.0-15.0 N Final Performed by:[facility] - [address] (QAW)[address] [place] [address] PLATELET COUNT 2024 21:28:5 6 232 Thousan d/uL 140-400 N Final Performed by:[facility] - [address] (QAW)[address] [place] [address] MPV 2024 21:28:5 6 12.7 fL 7.5-12.5 H Final Performed by:[facility] - [address] (QAW)[address] [place] [address] ABSOLUTE NEUTROPHILS 2024 21:28:5 6 3046 cells/u L 9626-8063 N Final Performed by:[facility] - [address] (QAW)[address] [place] [address] ABSOLUTE BAND NEUTROPHILS 2024 21:28:5 6 DNR cells/u L 0-750 N Final Performed by:[facility] - [address] (QAW)[address] [place] [address] ABSOLUTE METAMYELOCYTES 2024 21:28:5 6 DNR cells/u L 0 N Final Performed by:[facility] - [address] (QAW)[address] [place] [address] ABSOLUTE MYELOCYTES 2024 21:28:5 6 DNR cells/u L 0 N Final Performed by:[facility] - [address] (QAW)[address] [place] [address] ABSOLUTE PROMYELOCYTES 2024 21:28:5 6 DNR cells/u L 0 N Final Performed by:[facility] - [address] (QAW)[address] [place] [address] ABSOLUTE LYMPHOCYTES 2024 21:28:5 6 1949 cells/u L 850-3900 N Final Performed by:[facility] - [address] (QAW)[address] [place] [address] ABSOLUTE MONOCYTES 2024 21:28:5 6 426 cells/u L 200-950 N Final Performed by:[facility] - [address] (QAW)[address] [place] [address] ABSOLUTE EOSINOPHILS 2024 21:28:5 6 140 cells/u L 15-500 N Final Performed by:[facility] - [address] [place] [address] (QAW)[address] [place] [address] ABSOLUTE BASOPHILS 2024 21:28:5 6 39 cells/u L 0-200 N Final Performed by:[facility] - [address] [place] [address] (QAW)[address] [place] [address] ABSOLUTE BLASTS 2024 21:28:5 6 DNR cells/u L 0 N Final Performed by:[facility] - [address] [place] [address] (QAW)[address] [place] [address] ABSOLUTE NUCLEATED RBC 2024 21:28:5 6 DNR cells/u L 0 N Final Performed by:[facility] - [address] [place] [address] (QAW)[address] [place] [address] NEUTROPHILS 2024 21:28:5 6 54.4 % N Final Performed by:[facility]-[address] (QAW)[address] [place] [address] BAND NEUTROPHILS 2024 21:28:5 6 DNR % N Final Performed by:[facility] - [address] [place] [address] (QAW)[address] [place] [address] METAMYELOCYTES 2024 21:28:5 6 DNR % N Final Performed by:[facility] - [address] [place] [address] (QAW)[address] [place] [address] MYELOCYTES 2024 21:28:5 6 DNR % N Final Performed by:[facility] - [address] (QAW)[address] [place] [address] PROMYELOCYTES 2024 21:28:5 6 DNR % N Final Performed by:[facility] - [address] (QAW)[address] [place] [address] LYMPHOCYTES 2024 21:28:5 6 34.8 % N Final Performed by:[facility] - [facility] [address] (QAW)[address] [place] [address] REACTIVE LYMPHOCYTES 2024 21:28:5 6 DNR % 0-10 N Final Performed by:[facility] - [facility] [address] (QAW)[address] [place] [address] MONOCYTES 2024 21:28:5 6 7.6 % N Final Performed by:[facility] - [facility] [address] (QAW)[address] [place] [address] EOSINOPHILS 2024 21:28:5 6 2.5 % N Final Performed by:[facility] - [facility] [address] (QAW)[address] [place] [address] BASOPHILS 2024 21:28:5 6 0.7 % N Final Performed by:[facility] - [facility] [address] (QAW)[address] [place] [address] BLASTS 2024 21:28:5 6 DNR % N Final Performed by:[facility] - [facility] [address] (QAW)[address] [place] [address] NUCLEATED RBC 2024 21:28:5 6 DNR /100 WBC 0 N Final Performed by:[facility] - [address] (QAW)[address] [place] [address] COMMENT(S) 2024 21:28:5 6 DNR N Final Performed by:[facility] - [address] (QAW)[address] [place] [address] Panel Description: Thyroxine (T4) free [Mass/volume] in Serum or Plasma Final T4, FREE 2024 21:28:5 6 1.1 ng/dL 0.8-1.8 N Final Performed by:[facility] - [address] (QAW)[address] [place] [address] Panel Description: Thyrotrop in [Units/volume] in Serum or Plasma Final TSH 2024 21:28:5 6 1.28 mIU/L N Final Reference Rang e > or = 20 Years 0.40-4.50 Ranges First trimester 0.26-2.66 Second trimester 0.55-2.73 Third trimester 0.43-2.91Performe d by:[facility] - [address] (QAW)[address] [place] [address] Panel Description: NICOTINE AND COTININE, SERUM/ PLASMA Final NICOTINE, SERUM/PLASMA 2024 21:28:5 6 <2 ng/mL Final Reference Rang e Smoker: 2-10 Nonsmoker: < or = 4See Note 1Performed by:Increo SolutionsRoxana Rogers Y98)1486 [facility], [address] [address] COTININE, SERUM/PLASMA 2024 21:28:5 6 <2 ng/mL Final Reference Rang e Smoker: 16-145 Nonsmoker: < or = 8See Note 1This drug testing is for medical treatment only. Analysis was performed as non-forensic testing and these results should be used only by healthcare providers to render diagnosis or treatment, or to monitor progress of medical conditions. Note 1 This test was developed and its analytical performance characteristics have been determined by [facility] [employer]. It has not been cleared or approved by theA. This assay has been validated pursuant to the CLIA regulations and is used for clinical purposes.Performe d by:[facility] SolutionsRoxana Rogers Y98)4193 [facility], [address] [address] Advance Directives Directive Yes / No Effective Date File Name No Information Encounters Encounter Description Practice Location Reason(s) For Visit Diagnoses Date Provider Providers Copied on Encounter [facility], [address], [place], [place], [id number], [place] tel:[phone] [facility] No Information 5 Javier Tirado. [address] [facility], [address], [place], [place], [id number], [place]. tel:[phone] [facility], [address], [place], [place], [id number], [place] tel:[phone] [facility] No Information 4 No Information [facility], [address] [facility] [address], [place], [place], [id number], [place] tel:[phone] [facility] No Information 4 No Information Family History Family Member Type Diagnosis Age At Onset No Information Payers Payer name Insurance type Covered alliance party ID Authoriza tion(s) No Information Social History Type Description Quantity Date Captured Comments Sex Female Smoking Status No Information Chief Complaint And Reason For Visit No Information Reason For Referral Reason For Referral No Information History Of Present Illness Encounter Date Complaint History Of Prese nt Illness No Information Functional Status Date Functional Assessmen t No Information Instructions Date Instruction Additional Infor mation No Information Assessments Type Assessment Date No Information Patient Care Teams Name Effective Dates (start - stop) Status Members No Information
--- OUTSIDE RECORDS SUMMARY | 2024-12-03 07:33 | XMS_ITS | Continuity of Care Document ---
Author Organization [facility] ter Address [address] [place] [address] Phone Care Team Providers Care Legal Manager Name Role Phone Celestino Herrera MD Unavailable Unavailable Allergies, Adverse Reactions, Alerts Substance Reaction Status Criticality No Known Drug Allergies Active No I nformation Procedures Procedure Date Offic/outpt E&m Estab Mod-hi 2 25 Preven Meds 40-64 Preven Meds 40-64 Preven Meds 40-64 Screen [...] Preven Meds 40-64 Init Preven 40-64 Yrs Advance Directives Directive Yes / No Effective Date File Name No Information Encounters Encounter Description Practice Location Reason(s) For Visit Diagnoses Date Provider Providers Copied on Encounter [facility], [address], [place], [place], [id number], [place] tel:[phone] [facility] No Information 5 Javier Tirado. [address], [address], [place], [place], [address] , [place]. tel:[phone] Offic/outpt E&m Estab Mod-[address] 2 [facility], [address], [place], [place], [address], [place] tel:[phone] [facility] Right ear plugged (chief complaint)C hronic conditions (chief complaint) Nasal congestion 5 Javier Tirado. [address], [address], [place], [place], [address] , [place]. tel:[phone] [facility], [address], [place], [place], [address], [place] tel:[phone] [facility] Wellness (chief complaint)R eferral for mammogram (chief complaint)C hronic conditions (chief complaint) Encounter for general adult medical examination without abnormal findingsEncounter for screening for malignant neoplasm of colonBody mass index (BMI) 28.0-28.9, adult 5 Javier Tirado. [address], [address], [place], [place], [address] , [place]. tel:[phone] [facility], [address], [place], [place], [address], [place] tel:[phone] [facility] Wellness (chief complaint)C hronic conditions (chief complaint) Encounter for general adult medical examination without abnormal findingsEncounter for screening for malignant neoplasm of colonBody mass index (BMI) 30.0-30.9, adult 4 Javier Tirado. [address], [address], [place], [place], [address] , [place]. 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 [address], [place], [place], [address] , [place]. [phone] Referring Provider: Immanuel Jc MD, [address], [place], [address] . tel:[phone] [facility] 40-64 [facility], [address], [place], [place], [address], [place] tel:[phone] [facility] Wellness (chief complaint)C hronic conditions (chief complaint) Encounter for general adult medical examination without abnormal findingsEncounter for screening for malignant neoplasm of colonBody mass index (BMI) 33.0-33.9, adult 3 Javier Tirado. [address], [address], [place], [place], [address] , [place]. [phone] [facility] 40-64 [facility], [address], [place], [place], [address], [place] tel:[phone] [facility] Wellness (chief complaint)C hronic conditions (chief complaint) Encounter for general adult medical examination without abnormal findingsDermatitisE ncounter for screening for malignant neoplasm of colonBody mass index (BMI) 38.0-38.9, adult 2 Javier Tirado. [address], [address], [place], [place], [address] , [place]. [phone] Offic/outpt E&m Estab Mod-hi 2 [facility], [address], [place], [place], [address], [place] tel:[phone] [facility] Discuss FOBT (chief complaint)R eview lab results (chief complaint)C hronic conditions (chief complaint) DermatitisEncounter for screening for malignant neoplasm of colon 1 Javier Tirado. [address], [address], [place], [place], [address] , [place]. [phone] [facility] 40-64 [facility], [address], [place], [place], [address], [place] tel:[phone] [facility] Wellness (chief complaint)C hronic conditions (chief complaint) Encounter for general adult medical examination without abnormal findingsEncounter for screening for malignant neoplasm of colonBody mass index (BMI) 40.0-44.9, adult 1 Javier Tirado. [address], [address], [place], [place], [address] , [place]. [phone] [facility] 40-64 [facility], [address], [place], [place], [address], [place] tel:[phone] [facility] Physical (chief complaint)D ry patch right arm/right leg (chief complaint)C hronic conditions (chief complaint) Encounter for general adult medical examination without abnormal findingsDermatitisE ncounter for screening for malignant neoplasm of colonBody mass index (BMI) 39.0-39.9, adult 0 Javier Tirado. [address], [address], [place], [place], [address] , [place]. tel: [phone] [facility] 40-64 [facility], [address], [place], [place], [address], [place] tel:[phone] [facility] wellness (chief complaint)c hronic conditions (chief complaint) Encntr for general adult medical exam w/o abnormal findingsBody mass index (BMI) 36.0-36.9, adult 9 Javier Tirado. [address], [address], [place], [place], [address] , [place]. tel: [phone] Offic/outpt E&m Estab Mod-hi 2 [facility], [address], [place], [place], [address], [place] tel:[phone] [facility] left foot toe pain (chief complaint) Pain in left toeEdema 8 Javier Tirado. [address], [address], [place], [place], [address] , [place]. tel: [phone] [facility] 40-64 [facility], [address], [place], [place], [address], [place] tel:[phone] [facility] wellness (chief complaint)c old symptoms (chief complaint) Encntr for general adult medical exam w/o abnormal findingsEncounter for examination for insurance purposesBody mass index (BMI) 34.0-34.9, adultBronchitis 8 Javier Tirado. [address], [address], [place], [place], [address] , [place]. tel: [phone] Offic/outpt E&m Estab Mod-hi 2 [facility], [address], [place], [place], [address], [place] tel:[phone] [facility] diarrhea (chief complaint) Gastroenteritis 7 Javier Tirado. [address], [address], [place], [place], [address] , [place]. tel: [phone] [facility] -64 [facility], [address], [place], [place], [address], [place] tel:[phone] [facility] Preventive exam (chief complaint)w ellness (chief complaint) Encounter for general adult medical examination without abnormal findingsBilateral hearing lossBody mass index (BMI) 40.0-44.9, adult 7 Javier Tirado. [address], [address], [place], [place], [address] , [place]. tel: [phone] [facility], [address], [place], [place], [address], [place] tel:[phone] [facility] Encounter for general adult medical examination without abnormal findings 6 Javier Tirado. [address], [address], [place], [place], [address] , [place]. tel: [phone] Offic/outpt E&m Estab [facility] 2 [facility], [address], [place], [place], [address], [place] tel:[phone] [facility] Follow Up of anxiety (chief complaint)l eave of absence extension (chief complaint) Acute crisis reactionDizziness and giddiness 6 Javier Tirado. [address], [address], [place], [place], [address] , [place]. tel: [phone] Offic/outpt E&m Estab [facility] 2 [facility], [address], [place], [place], [address], [place] tel:[phone] [facility] FMLA paperwork (chief complaint) Acute crisis reactionDizziness and giddiness 6 Javier Tirado. [address], [address], [place], [place], [address] , [place]. tel: [phone] [facility] 40-64 [facility], [address], [place], [place], [address], [place] tel:[phone] [facility] anxiety (chief complaint)w ellness (chief complaint) Encounter for general adult medical examination without abnormal findingsAnxiety 6 Javier Tirado. [address], [address], [place], [place], [address] , [place]. tel:[phone] Offic/outpt E&m Estab Mod-hi 2 [facility], [address], [place], [place], [address], [place] tel:[phone] [facility] review ct scan (chief complaint) Dizziness 5 Javier Tirado. [address], [address], [place], [place], [address] , [place]. tel:[phone] Offic/outpt E&m Estab Mod-wy 2 [facility], [address], [place], [place], [address], [place] tel:[phone] [facility] review labs (chief complaint)d izziness (chief complaint) Dizziness 5 Javier Tirado. [address], [address], [place], [place], [address] , [place]. tel:[phone] Preven Meds 40-64 [facility], [address], [place], [place], [address], [place] tel:[phone] [facility] Dizziness (chief complaint)w ellness (chief complaint) DizzinessRoutine Medical Exam 5 Javier Tirado. [address], [address], [place], [place], [address] , [place]. [phone] Init Preven 40-64 Yrs [facility], [address], [place], [place], [address], [place] tel:[phone] [facility] establish (chief complaint)w ellness exam (chief complaint) Routine Medical Exam 4 Javier Tirado. [address], [place], [place], [address] , [place]. tel:[phone] Family History Family Member Type Diagnosis Age At Onset No Information Payers Payer name Insurance type Covered libertarian ID Yossi neely(s) R CI [id number] Social History Type Description Quantity Date Captured Comments Alcohol Use Details Unknown Caffeine Use Details Unknown Tobacco Use Status No Information Smoking Status No Information Sex Female Chief Complaint And Reason For Visit No Information Reason For Referral Reason For Referral No Information Plan Of Treatment Date Type Action Status Goal Zoster vaccine ( ). Due on due Goal Prevnar 13. Due on due Goal Tobacco screening. Due on Ma due Goal Colonoscopy. Due on due Goal CT-Colonography. Due on due Goal Sigmoidoscopy. Due on due Goal Unhealthy drug u se screening. Due on due Goal FIT. Due on due Goal Depression scree terrence. Due on due Goal Hepatitis C scre ening. Due on due Goal Pap/HPV testing. Due on due Goal FIT-DNA. Due on due Goal Influenza vaccine. Due on Oc due Goal Zoster vaccine ( ). Due on due Goal Colonoscopy. Due on due Goal Pap/HPV testing. Due on due Goal Unhealthy drug u se screening. Due on due Goal Prevnar 13. Due on due Goal Depression scree terrence. Due on due Goal FIT-DNA. Due on due Goal FIT. Due on due Goal CT-Colonography. Due on due Goal Sigmoidoscopy. Due on due Goal Tobacco screening. Due on Ma due Goal Influenza vaccine. Due on Oc due Goal Hepatitis C scre ening. Due on due Goal Tobacco screening. Due on Tx due Goal FIT-DNA. Due on due Goal Pap/HPV testing. Due on due Goal Prevnar 13. Due on due Goal CT-Colonography. Due on due Goal Hepatitis C scre ening. Due on due Goal Depression scree terrence. Due on due Goal Colonoscopy. Due on due Goal Unhealthy drug u se screening. Due on due Goal FIT. Due on due Goal Sigmoidoscopy. Due on due Goal Zoster vaccine ( 1st). Due on due Goal Influenza vaccine. Due on Tx due Goal CT-Colonography. Due on due Goal Unhealthy [...] to Pain in left toe) ordered Referral Ordered: Rad Exam Ft; Ap & Lat Views Left foot ordered Referral Referred To: Allan Castillo [address], [phone] Ordered: Referrals: Podiatry. Allan Castillo ordered Referral Ordered: HELLEN ROMERO -Otolaryngology (related to Bilateral hearing loss) ordered Referral Referred To: HELLEN ROMERO [address] [place], [place] [id number] Ordered: Referrals: Otolaryngology. HELLEN ROMERO ordered Referral Ordered: MAMMOGRAM BOTH BREASTS ordered Referral Ordered: Cat Head/brain; Wo Contrast Ma ordered Patient Education Gastroenteritis: After Your Visit completed Patient Education The Mediterranean Diet: After Your Vis completed Future Order: Lab Order TSH ([id number]), S ent on: Sent Future Order: Lab Order CBC with Diff ([id number]), Sent on: Sent Future Order: Lab Order STOOL OC CULT ([id number]), Sent on: Sent Future Order: Lab Order Nicotine Serum ([id number]), Sent on: Sent Future Order: Lab Order LIPID PA CHAPARRO ([id number]), Sent on: Sent Future Order: Lab Order CMP ([id number]), S ent on: Sent Future Order: Lab Order T4 FREE ([id number]), Sent on: Sent Future Order: Lab Order UA w/ [place] [employer] REPRESENTATIVE ([id number]), Sent on: Sent Future Order: Lab Order Nicotine Serum ([id number]), Sent on: Sent Future Order: Lab Order LIPID PA CHAPARRO ([id number]), Sent on: Sent Future Order: Lab Order CMP ([id number]), S ent on: Sent Nutrition Recommendation Nutrition / feed ing management completed Nutrition Recommendation Nutrition / feed ing management completed Nutrition Recommendation Nutrition / feed ing management completed History Of Present Illness Encounter Date Complaint History Of Prese nt Illness Right ear plugged exam neg for i nfection or cerumen impaction Chronic conditions Referral for mammogram Wellness Discussed Health y lifestyle , Answered patients questions and reviewed appropriate screening guidelines Chronic conditions Wellness Discussed health y lifestyle, [...] take Folic acid. Additional information: last pap 2018 lmp n/a sn . Wellness Discussed health [...] block capri eaamparo for 1 months and [facility] paperwork filled out anxiety Additional infor mation: [...] and preventative testing frequency. Answered patients questions. establish [facility] Functional Status Date Functional Assessmen t No Information Instructions Date Instruction Additional Infor andrew Encourage healthy di et and exercise as tolerated Related to Encounter for general adult medical examination without abnormal findings Giving encouragement to exercise Related to Body mass index [BMI] 28.0-28.9, adult Discussed healthy li festyle and diet [...] general adult medical examination without abnormal findings Weight-reducing diet education R elated to Body mass index [BMI] 38.0-38.9, adult Giving encouragement to exercise Related to Body mass index [BMI] 38.0-38.9, adult Giving encouragement to exercise Related to Body mass index [BMI]40.0-44.9, adult Lifestyle education regarding di et Related to Body mass index [BMI]40.0-44.9, adult try tmc .1 % Related to [place] titis Giving encouragement to exercise Related to [...] diet and exercise. last pap and mammogram 2017 nl Related to Encntr for general adult medical exam w/o abnormal findings Lifestyle education regarding di et Related to Body mass index (BMI) 34.0-34.9, adult Giving encouragement to exercise Related to [...] Dizziness and giddiness pending meeting with [facility] and [place] and [facility] Paperwork filled out. Related to Acute crisis reaction try promethazine 25 qhs for nausea and sleep for the next 2-4 weeks. Suggest grief counseling at [facility] Related to Anxiety Discussed healthy li festyle [...]
--- NOTE | 2024-12-19 16:29 | A.OFFPC_ITS ---
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 Sales Required: No Accompanied by: Self / Same As Patient Allergies aspirin (ASA) Allergy (Intermediate, Verified 12/19/24 16:41) FACIAL SWELLING, swelling baclofen (BACLOFEN) Allergy (Intermediate, Verified 12/19/24 16:41) UNKNOWN, vomiting amitriptyline Allergy (Mild, Verified 12/19/24 16:41) face swelling Medication List - Last Reconciled 12/19/24 by Abby Fuller MD bupropion HCl XL 150 mg PO QAM 90 days cholecalciferol (vitamin D3) 50 mcg PO DAILY 90 days dupilumab (Dupixent) 300 mg (2 mL) subcut Q2W 28 days aluwzasuqvi-kbybvpmgv-hugzseua 200-62.5-25 mcg (Trelegy Ellipta) 1 inh inhalation DAILY 30 days gabapentin 600 mg PO .four times a day 30 days levothyroxine 125 mcg PO DAILY 90 days loratadine 10 mg PO DAILY 90 days lorazepam 0.5 mg PO DAILY PRN 10 days meclizine 25 mg PO BID PRN 5 days ondansetron HCl 4 mg PO Q8H PRN 7 days pantoprazole 40 mg PO DAILY 90 days tramadol 50 mg PO TID PRN 30 days zolpidem 10 mg PO BEDTIME PRN 90 days Tobacco use date assessed: 12/19/24 Dental Screening Dental Screen Date: 12/19/24 Did you have a dental visit in the last 12 months?: Yes Did you have a dental problem in the last 6 months where you did not have access to dental care?: No Was dental information given to patient?: Patient has dentist HPI HPI Comments History of Present Illness Details The patient is a 54-year-old female presenting for management of chronic conditions and health maintenance. Her last colonoscopy was in June 2019, with a recommendation for a 10-year follow-up. She continues to experience alternating constipation. She reports pain in her left knee, particularly when climbing stairs. She has been told she has arthritis in the knee and also in her toes. The patient also has a history of osteoporosis. She thinks she needs a new transition rn due to insurance not covering Rixty. She has low vitamin-D and hypokalemia which will be repeated. She also has mild major depression stable with bupropion. Previous lab work showed excellent cholesterol and good sugar levels, but her potassium was slightly elevated. The patient is due for a mammogram. Her current medications include gabapentin 600 mg four times a day and levothyroxine 125 mcg. [facility] Medical History (Updated 12/19/24 @ 17:09 by Abby Fuller MD) Osteoporosis Skin lesion Hiatal hernia GERD (gastroesophageal reflux disease) Mild depression Insomnia Autoimmune thyroiditis Dizziness Osteopenia Postmenopausal Polyarthralgia ADD (attention deficit disorder) MINO (obstructive sleep apnea) Asthma Mild persistent asthma Syncope and collapse Shortness of breath Thyroid nodule Hypovitaminosis D GERD (gastroesophageal reflux disease) Leo-Danlos syndrome Hypothyroidism Surgical History History of cystocele History of repair of rectocele History of umbilical hernia repair Family History Father CVD (cardiovascular disease) Mother Hypertension CVD (cardiovascular disease) Osteoporosis PMR (polymyalgia rheumatica) Maternal Grandfather CVD (cardiovascular disease) Chronic mental illness Maternal Aunt Thyroid cancer Son Leo-Danlos disease Social History Housing: House Alcohol intake: never Comment: medicated, see MAR Patient Tobacco Use Status: Never used Tobacco e-Cigarette/Vaping Use: Never Used Second Hand Smoke Exposure: No service: No Current occupational status: employed 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 1. Little interest or pleasure in doing things: more than half the days 2. Feeling down, depressed, or hopeless: several days 3. Trouble falling or staying asleep, or sleeping too much: more than half the days 4. Feeling tired or having little energy: more than half the days 5. Poor appetite or overeating: not at all 6. Feeling bad about yourself - or that you are a failure or have let yourself or your family down: not at all 7. Trouble concentrating on things, such as reading the newspaper or watching television: more than half the days 8. Moving or speaking so slowly that other people could have noticed. Or the opposite - being so fidgety or restless that you have been moving around a lot more than usual: not at all 9. Thoughts that you would be better off or of hurting yourself in some way: not at all Total score: 9 Depression Screening Interpretation: Positive Depression Screening Follow-up: Existing condition and Follow-up Visit Requested Depression Screening Done: Yes 30812 - PHQ-9 Billing: Yes Source: Developed by Drs. Ammon Bautista, Arlet Benjamin, Juancho Ayers and colleagues, with an educational stewart from [employer]. Thrive Questionnaire Date Thrive assessed: 05/09/24 I am a: Patient What is your living situation today?: I have a steady place to live Within the past 12 months, did the food you bought not last and you didn't have the money to get more?: I choose not to answer this question Within the past 12 months, did you worry whether your food would run out before you got money to buy more?: I choose not to answer this question Do you have trouble paying for medicines?: I choose not to answer this question Do you have trouble getting transportation to medical appointments?: I choose not to answer this question Do you have trouble paying your heating and electricity bill?: I choose not to answer this question Do you have trouble taking care of your child, family member or friend?: I choose not to answer this question Do you have trouble with day-to-day activities such as bathing, preparing meals, shopping, managing finances, etc.?: I choose not to answer this question Are you currently unemployed and looking for a job?: I choose not to answer this question Are you interested in more education?: I choose not to answer this question Please select the resources that you would like help with: None Currently or been in a relationship where the following occur: No concerns reported THRIVE Score: 0 AUDIT C Alcohol Use Questionnaire (AUDIT-C) 1. How often do you have a drink containing alcohol?: Never Total Score: 0 Score Reviewed/Action Taken: No ANNY-7 AMB Questionnaire ANNY-7 Date ANNY - 7 assessed: 05/09/24 Feeling nervous, anxious, or on edge: 0 = Not at all Not being able to stop or control worryin = Not at all Worrying too much about different things: 0 = Not at all Trouble relaxin = Not at all Being so restless that it is hard to sit still: 0 = Not at all Becoming easily annoyed or irritable: 0 = Not at all Feeling afraid as if something awful might happen: 0 = Not at all Total ANNY-7 score (0-4 normal; 5-9 mild; 10-14 moderate; 15-21 severe): 0 Source: Developed by Drs. Ammon Bautista, Arlet Benjamin, Juancho Ayers and colleagues, with an educational stewart from [employer]. ANNY-7 Assessment Billing ANYN-7 Assessment Tool: ANNY-7 Assessment 94781 Review of Systems Const All systems reviewed & are unremarkable except as noted in HPI and below Card Denies chest pain at rest, Denies chest pain with activity, Denies edema, Denies irregular heart rhythm, Denies claudication, Denies dyspnea, Denies dyspnea on exertion, Denies orthopnea, Denies paroxysmal nocturnal dyspnea and Denies slow heart rate Resp Denies cough, Denies dyspnea and Denies dyspnea on exertion GI Denies abdominal pain, Denies change in bowel habits, Denies excessive flatus, Denies nausea and Denies vomiting Skin/Breast Denies changing lesions Physical exam (Primary Care) Vital Signs: Last Vital Signs Pulse 58 12/19/24 16:30 Resp 18 12/19/24 16:30 BP 102/70 12/19/24 16:30 Pulse Ox 98 12/19/24 16:30 Oxygen Delivery Method Room Air 12/19/24 16:30 BMI result Body Mass Index 18.5 Tobacco/Smoking Status: Tobacco use Status Tobacco use date assessed 12/19/24 12/19/24 16:36 Patient Tobacco Use Status Never used Tobacco 12/19/24 16:36 e-Cigarette/Vaping Use Never Used 12/19/24 16:36 PHQ-9: PHQ-9 Score PHQ-9: Total score 9 12/19/24 16:40 Depression Screening Interpretation: Positive Depression Screening Follow-up: Existing condition and Follow-up Visit Requested Thrive Assessment: Date of Thrive Assessment Date Thrive assessed 05/09/24 12/19/24 16:36 Currently or been in a relationship where the following occur: No concerns reported Resp Effort & Inspection: normal respiratory effort Auscultation: clear to auscultation bilaterally Cardio Jugular venous distension: no JVD Rate: regular rate Rhythm: regular rhythm Heart sounds: S1 normal heart sound present and S2 normal heart sound present Extrem General: Yes full ROM Office Procedures Flu Questionnaire Does the patient have a severe egg allergy?: No Does the patient have severe life threatening allergies?: No Does the patient have a fever or illness today?: No Has the patient ever had Guillain-Oneida Syndrome?: No Has the patient ever had any past reaction to a flu shot?: No Immunizations Fluarix [id number] (PF) 45 mcg (15 mcg x 3)/0.5 mL IM syringe Performing Provider: Abby Fuller MD [facility] Administered by: Emilie Valles CMA on 12/19/24 16:40 Dose Route Admin Location Dispensed Lot Number Expiration Date NDC Boat Canvas Maker Installer 0.5 mL IM Left Deltoid 0.5 mL [id number] 08/06/25 [id number] [employer] VIS Given Date VIS Provided VIS Publication Date 12/19/24 Single Vaccine 24 Eligibility Eligibility Date Funding Source Not [facility] Eligible 12/19/24 Private Coding Level of Care Code Est Pt Level 4 (22509) Complex EM visit Add On G2211 Diagnoses Left knee pain M25.562 Osteoporosis without current pathological fracture, unspecified osteoporosis type M81.0 Osteoporosis type: unspecified Presence of current pathological fracture: without current pathological fracture 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; E06.3 Hypothyroidism type: due to Lilian's thyroiditis Hypokalemia E87.6 Hypovitaminosis D E55.9 Mild depression F32.0 Additional Codes PHQ-9 - 23807 - PHQ-9 Billing: Yes ([id number]) ANNY-7 Assessment Billing - ANNY-7 Assessment Tool: ANNY-7 Assessment 72989 ([id number]) Time Spent (min) 24 Assessment & Plan Assessment & Plan (1) Left knee pain: Code(s): M25.562 - Pain in left knee Category: Medical (2) Osteoporosis: Code(s): M81.0 - Age-related osteoporosis without current pathological fracture Category: Medical Qualifiers: Osteoporosis type: unspecified Presence of current pathological fracture: without current pathological fracture Qualified Code(s): M81.0 - Age- related osteoporosis without current pathological fracture (3) Hypothyroidism: Code(s): E03.9 - Hypothyroidism, unspecified Category: Medical Qualifiers: Hypothyroidism type: due to Lilian's thyroiditis Qualified Code(s): E03.8 - Other specified hypothyroidism; E06.3 - Autoimmune thyroiditis (4) Hypokalemia: Code(s): E87.6 - Hypokalemia Category: Medical (5) Hypovitaminosis D: Code(s): E55.9 - Vitamin D deficiency, unspecified Category: Medical (6) Mild depression: Code(s): F32.0 - Major depressive disorder, single episode, mild Category: Medical Plan Plan Patient was informed and verbally consented to the use of an ambient scribe for clinic note documentation during this visit. 1. Left Knee Pain An X-ray of the left knee will be ordered to evaluate the patient's pain. A referral to physical therapy will also be placed. 2. Osteoporosis The patient will be referred to a specialist for management of osteoporosis, with endocrinology or rheumatology being the appropriate options. The patient was advised to contact her medical insurance plan to get a list of in-network specialists. 3. Hypothyroidism Continue levothyroxine. Monitor TSH. 4. Hypokalemia Repeat potassium. 5. Low vitamin-D Continue vitamin-D supplements. 6. Mild depression Continue bupropion. Orders: Orders Vitamin D 25-OH Total Today E55.9 - Vitamin D deficiency, unspecified MM tomosynthesis screening BI Today Z12.31 - Encounter for screening mammogram for malignant neoplasm of breast Influenza [id number] Immunization Today Z23 - Encounter for immunization Potassium Today E87.6 - Hypokalemia Thyroid Stimulating Hormone Today E03.8 - Other specified hypothyroidism, E06.3 - Autoimmune thyroiditis XR knee LT 2V Today M25.562 - Pain in left knee Referrals Ophthalmology Referral H53.8 - Other visual disturbances Medications: Refilled lorazepam 0.5 mg PO DAILY PRN 10 tabs 0RF anxiety 10 days
[2024-12-19 16:30] VITALS: BP 102/70; PULSE 58; RESP 18; O2SAT 98; BMI 18.5
--- OUTSIDE RECORDS SUMMARY | 2024-12-19 19:02 | XMS_ITS | Clinical Summary ---
Author Organization [facility] Address [address] [address] Phone Care Team Providers Care Professor Of Psychiatry Name Role Phone Abby Hancock MD Primary [...] (zoledronic acid) infused every 12 months at [facility]. Pamphlet on its side effects [...] (zoledronic acid) infused every 12 months at [facility]. Pamphlet on its side effects [...] She is following with her respective GI, GEOLOGY ASSOCIATE, psychologist/psychiatry specialists. Avoidance of falls, injuries and [...] She is following with her respective GI, GEOLOGY ASSOCIATE, psychologist/psychiatry specialists. Avoidance of falls, injuries and [...] versus acupuncture treatments. Warm pool therapy at [facility] Assessment & Plan (04/17/2018 11:19 AM EDT): Continue current dose of gabapentin. Avoid falls, injuries, heavy lifting, sudden turns, stooping. Use warm packs or warm shower prior to gentle, regular core muscle exercising Warm pool therapy at [facility] Chronic fatigue 09/08/2017 Vitamin D insufficiency [...] 6:26 PM EST): Continue weekly vit D 54922 IU every Tuesday to bring serum level up to 40-50 ng/mL. Assessment & Plan (04/17/2018 11:18 AM EDT): Continue weekly vit D 56374 IU every Tuesday to bring serum level up to 40-50 ng/mL. Fibromyalgia 09/08/2017 Assessment & Plan (10/03/2023 11:36 AM EDT): Carefully continue Cymbalta 30 mg daily in addition to gabapentin 2400 mg nightly. Continue regular exercise program - try [facility] warm pool therapy in [place] 2- 3/week and continue all year round [...] - try [facility] warm pool therapy in [place] 2- 3/week and continue all year round [...] - try [facility] warm pool therapy in [place] 2- 3/week and continue all year round [...] - try [facility] warm pool therapy in [place] 2- 3/week and continue all year round I bought the book written by Dr Jeovanny Swenson Full catastrophe living - & follow advice provided in a book Social History Tobacco Use Types Packs/Day Years [...] HEPATITIS C SCREENING 1986 HIV ONE-TIME SCREENING (18-65 YEARS) 1986 PAP SMEAR 1989 MAMMOGRAM 2008 COLOGUARD 2013 COLONOSCOPY 2013 COLORECTAL CANCER SCREENING 2013 FIT TEST 2013 FOBT 2013 SIGMOIDOSCOPY 2013 VIRTUAL COLONOSCOPY 2013 PNEUMOCOCCAL VACCINES (50+ years) (1 of 1 - PCV) 2018 ZOSTER VACCINES (1 of 2) 2018 TSH LEVEL 09/08/2018 09/08/2017 INFLUENZA VACCINE (#1) 2024 3, 11/11/2021, 10/31/2020, Additional history exists COVID-19 VACCINE ( - 2024- season) 2024 01/16/2021, 03/26/2020, 02/29/2020 Adult Td,Tdap Booster 03/12/2029 03/12/2019 RSV VACCINE (1 - 1-dose 75+ series) 06/17/2043 SMOKING STATUS SCREENING (Once After 26 Yrs) Completed 10/03/2023 HEPATITIS A VACCINES Aged Out No long er eligible based on patient's age to complete this topic HIB VACCINES Aged Out No longer eligi ble based on patient's age to complete this topic IPV VACCINES Aged Out No longer eligi ble based on patient's age to complete this topic MENINGOCOCCAL VACCINES (ACWY) Aged Out No longer eligible based on patient's age to complete this topic MENINGOCOCCAL VACCINES (B) Aged Out N o longer eligible based on patient's age to complete this topic Medical Devices Not on file Procedures Procedure Name Priority Date/Time Associated Diagnosis Comments THYROID STIMULATING HORMONE (TSH) Routine 09/08/2017 4:31 PM EDT Leo-Danlos syndrome type III Acquired hypothyroidism Gastroesophageal reflux disease without esophagitis Chronic midline low back pain with left-sided sciatica from Last 3 Months or Most Recently Relevant to Health Maintenance Results * TSH (09/08/2017 4:31 PM EDT) TSH 2.81 0.27 - 4.20 uIU/mL [facility] Blood 09/08/2017 4:31 PM EDT 09/08/2017 4:33 PM EDT us Ju Melgoza MD LAB BLOOD BKR ORDERABLES Final Result [address] [address] from Last 3 Months or Most Recently Relevant to Health Maintenance Insurance GENERIC COMMERCIAL GENERIC COMMERCIAL GENERIC COMMERCIAL [employer] GENERIC COMMERCIAL GENERIC COMMERCIAL [facility] D[facility] GENERIC COMMERCIAL [facility] Care Teams Professor Of Psychiatry Relationship Specialty Start Date End Date Abby Hancock MD [address] [place] [address] PCP - General Internal Medicine 03/25/22 Additional Source Comments The information contained in this document represents components of the legal health record. It is not the complete legal health record.[facility]
--- OUTSIDE RECORDS SUMMARY | 2024-12-19 19:02 | XMS_ITS | Patient Health Record ---
Author Organization [facility] Address [address] [place] [id number] Care Team Providers Care Flight Simulator Teacher Name Role Phone Abby Hancock Primary Care Provider Carlitos Zavala Jr Unavailable Allergies Allergen (clinical drug ingredient) Drug/Non Drug [...] TABLET B Y MOUTH TWICE A DAY Oral; Duration: 30 Active Meclizine HCl 25 MG 1 [...] Problem Status W/U Status Risk Notes Problem Abdominal bloating ([id number]) Abdominal bloating (R14.0) Active confirmed Problem Gastroesophageal reflux disease without esophagitis ([id number]) Gastroesophageal reflux disease without esophagitis (K21.9) Active confirmed Plan Of Treatment Future Test Test Name Order Date UPPER GI ENDOSCOPY 03/30/2017 Insurance Providers Payer Name Payer Address Payer Phone Subscriber Number Group Number Insured Name Patient Relationship to Insured Coverage Start Date Coverage End Date [facility] [address] [address] [place], [place] [phone] [id number] NANCY CHERY Self - patient is the insured Medical (General) History Medical History History ICD Code 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
--- OUTSIDE RECORDS SUMMARY | 2024-12-19 19:02 | XMS_ITS | Clinical Summary ---
Author Organization [facility] Address [address] [place] [address] Care Team Providers Care Bricklayer Supervisor Name Role Phone Unavailable Primary Care Provider [...] 2018 Zoster Vaccines (1 of 2) 2018 Depression Screening 02/08/2024 COVID-19 Vaccine ( - 2024-2 6 season) 2024 Influenza Vaccine (#1) 2024 RSV Immunization Adult Patie nts (1 - 1-dose 75+ series) 06/17/2043 HIB Vaccines Aged Out No longer eligi [...]
== END 2024-12-19 17:09 | disposition home or self-care (01) ==
LOC: HO.HMCH 16:24
PROVIDERS: PCP Internal Medicine; Visit Provider Internal Medicine
DX: M25.562 Pain in left knee (principal); M81.0 Age-related osteoporosis without current pathological fracture; E03.8 Other specified hypothyroidism; E06.3 Autoimmune thyroiditis; E87.6 Hypokalemia; E55.9 Vitamin D deficiency, unspecified; F32.0 Major depressive disorder, single episode, mild; Z23 Encounter for immunization

== ENCOUNTER → 2024-12-19 16:24 | Outpatient (BNVA) | payer OTHER, SELFPAY | PROVIDERS: PCP Internal Medicine; Visit Provider Internal Medicine | DX: M25.562 Pain in left knee (principal); E55.9 Vitamin D deficiency, unspecified; E87.6 Hypokalemia; M81.0 Age-related osteoporosis without current pathological fracture; E03.8 Other specified hypothyroidism; E06.3 Autoimmune thyroiditis; F32.0 Major depressive disorder, single episode, mild; H53.8 Other visual disturbances; Z23 Encounter for immunization | CPT/HCPCS: 90471; 90656; 96127 ==